=== PATIENT | female | born 1985 | race Caucasian/White ===

== ENCOUNTER → 2020-01-31 11:29 | Outpatient (BNVA) | payer OTHER, SELFPAY | PROVIDERS: PCP Internal Medicine; Referring Provider Internal Medicine; Visit Provider Advanced Practice Midwife | DX: B37.3 Candidiasis of vulva and vagina (principal); B37.2 Candidiasis of skin and nail; N76.2 Acute vulvitis; E66.01 Morbid (severe) obesity due to excess calories; Z68.42 Body mass index [BMI] 45.0-49.9, adult; Z79.899 Other long term (current) drug therapy | CPT/HCPCS: 99213 ==

== ENCOUNTER 2021-03-08 14:07 | Outpatient (REF) | payer OTHER, SELFPAY ==
[2021-03-08 14:33] LABS: COVID-19 Test Negative (Negative)
== END 2021-03-08 14:08 | disposition home or self-care (01) ==
LOC: HO.LAB 14:07
PROVIDERS: PCP Internal Medicine; Visit Provider Internal Medicine
DX: Z20.822 Contact with and (suspected) exposure to COVID-19 (principal)
CPT/HCPCS: 36415; 87635; C9803

== ENCOUNTER 2023-10-28 13:33 | Emergency (ER) | payer OTHER, SELFPAY ==
--- NOTE | 2023-10-28 | ECG_ITS ---
Test Reason : CHEST PAIN Blood Pressure : / mmHG Vent. Rate : 083 BPM Atrial Rate : 083 BPM P-R Int : 138 ms QRS Dur : 088 ms QT Int : 364 ms P-R-T Axes : 028 009 007 degrees QTc Int : 427 ms Normal sinus rhythm Normal ECG When compared with ECG of 24-OCT-2017 14:01, No significant change was found Referred By: Generic ED Physician Electronically Signed By:Shade Albright
--- NOTE | ~2023-10-28 | XR_ITS ---
EXAMINATION: XR CHEST CLINICAL INFORMATION: Chest pain COMPARISON: None available. TECHNIQUE: 2 views of the chest were obtained. FINDINGS: No significant abnormality is noted involving the heart, lungs, mediastinum, bony thorax or soft tissues. XR/XR chest 2V IMPRESSION: Unremarkable examination.
[2023-10-28 13:52] VITALS: BP 123/83; PULSE 82; RESP 18; TEMP 36.1; O2SAT 98; BMI 44.2
--- NOTE | 2023-10-28 13:53 | ED_ITS ---
HPI - Chest Pain General Chief Complaint: Chest Pain Stated Complaint: Chest pain Related Data Home Medications ?Medication ?Instructions ?Recorded ?Confirmed ibuprofen 800 mg tablet 800 mg PO Q8H 01/31/20 01/31/20 Previous Rx's ?Medication ?Instructions ?Recorded nystatin 100,000 unit/gram topical 1 applic topical BID #15 grams 01/31/20 ointment nystatin 100,000 unit/gram topical 1 applic topical BID 14 days #15 01/31/20 powder grams Allergies Allergy/AdvReac Type Severity Reaction Status Date / Time No Known Allergies Allergy Verified 10/28/23 13:55 [No Known Allergies*] [facility], [facility] Past Medical History Medical History Cellulitis of labia majora Morbid obesity with BMI of 45.0-49.9, adult Pre-diabetes Yeast infection involving the vagina and surrounding area Yeast infection of the skin Surgical History History of Family History Family History Maternal Aunt Breast cancer Social History Social History Alcohol intake: never Advance Directives: No Advance Directives Information Provided: No Do you have a plan to hurt others: No Plan Sexual orientation: Straight/Heterosexual Gender identity: Female Physical Exam 2 Vital Signs: Vital Signs: Last Vital Signs Temp 96.9 F 10/28/23 13:52 Pulse 82 10/28/23 13:52 Resp 18 10/28/23 13:52 BP 123/83 10/28/23 13:52 Pulse Ox 98 10/28/23 13:52 O2 Del Method Room Air 10/28/23 13:52 BMI result Body Mass Index 44.2 Course Course Course Narrative: This is an RME: Additional HPI, ROS, PE not included below will be deferred to primary provider. RME assessment and note performed by: Gely Flores PA-C This is a 38 y/o F, who presents to the ER with a complaints of left sided chest pain x 1 week. Pt states pain worsens with palpation. Thought it was breast pain. Endorsing SOB Plan: Labs, XR, EKG Reevaluation(s) Reevaluation #1: Patient left without completing treatment. Medical Decision Making Lab Data 10/28/23 16:02 10/28/23 16:02 Labs: Lab Results 10/28/23 Range/Units 16:02 WBC 9.3 (4.8-10.8) X10*3/uL RBC 4.71 (4.20-5.50) X10*6/uL Hgb 9.9 L (12.0-16.0) g/dl Hct 33.8 L (37.0-47.0) % MCV 71.8 L (80.0-98.0) fL MCH 21.0 L (27.0-33.0) pg MCHC 29.3 L (31.0-35.0) g/dl RDW 16.4 H (11.0-16.0) % Plt Count 257 (160-400) X10*3/uL MPV 10.1 (9.4-12.3) fL Immature Gran % (Auto) 0.3 (0.0-0.4) % Neut % (Auto) 55.3 (45-73) % Lymph % (Auto) 33.6 (20-40) % [place] % (Auto) 7.4 (2-11) % Eos % (Auto) 2.6 (0-4) % Baso % (Auto) 0.8 (0-2) % Lymph # (Auto) 3.1 (1.2-4.9) X10*3/uL [place] # (Auto) 0.7 (0.1-1.2) X10*3/uL Eos # (Auto) 0.2 (0.0-0.4) X10*3/uL Baso # (Auto) 0.1 (0.0-0.2) X10*3/uL Abs Immat Gran (auto) 0.03 (0.00-0.03) X10*3/uL Absolute Neuts (auto) 5.1 (2.0-8.3) x10*3/uL Absolute Nucleated RBC 0.000 (0.0-0.012) X10*3/uL Nucleated RBC % (auto) 0.0 (0.0-0.2) /100WBC Sodium 138 (135-145) mmol/L Potassium 4.0 (3.3-5.1) mmol/L Chloride 109 H (96-108) mmol/L Carbon Dioxide 23 (22-29) mmol/L Anion Gap 10 L (12-20) BUN 11 (9-16) mg/dL Creatinine 0.73 (0.5-1.4) mg/dL Estim Creat Clear Calc 126.5 Estimated GFR > 60 Random Glucose 106 (60-115) mg/dL Calcium 8.6 (8.4-10.2) mg/dL Magnesium 1.9 (1.6-2.6) mg/dL Total Bilirubin 0.5 (0.0-1.0) mg/dL Direct Bilirubin 0.1 (0.0-0.5) mg/dL AST 14 (5-31) U/L ALT 13 (0-31) U/L Alkaline Phosphatase 54 (39-117) U/L Troponin I High Sens < 2.7 (<3.5-17.0) ng/L Total Protein 7.0 (6.5-8.0) g/dL Albumin 3.8 (3.5-5.0) g/dL Lipase 38 (8-78) U/L Discharge Plan Discharge Clinical Impression: Chest pain Patient Disposition: Left W/O Completing Treatment Prescriptions: No Action ibuprofen 800 mg tablet 800 mg PO Q8H nystatin 100,000 unit/gram powder 1 applic topical BID 14 Days Qty: 15 1RF nystatin 100,000 unit/gram ointment 1 applic topical BID Qty: 15 1RF Interventions: USAMA Worksheet Last Done: 10/28/23 21:19 Discharge Date/Time: 10/28/23 21:19
--- OUTSIDE RECORDS SUMMARY | 2023-10-28 16:06 | XMS_ITS | Continuity of Care Document ---
Author Organization [facility] Address [address] [place] [address]- Care Team Providers Care Police Dispatcher Name Role Phone Carmela Lake MD Primary Care Physician Encounter [facility] Date(s): 06/05/20 - 07/14/[address] [address]- Attending Physician: Ernesto Webb MD Admitting Physician: Ernesto Webb MD Referring Physician: Carmela Lake MD Allergies, Adverse Reactions, Alerts Substance Reaction Severity Status NKA Active Immunizations Given and Recorded Vaccine Date Status Refusal Reason tetanus/diphtheria/pertussis, acel(Tdap) 06/15/13 Given influenza virus vaccine, inactivated 04/06/13 Give n influenza virus vaccine, inactivated 1 02/04/12 Gi jany Human Papillomavirus Vaccine 2 06/22/12 Given Human Papillomavirus Vaccine 11/04/10 Given Influenza Vaccine (oldterm) 3 05/30/09 Given influ virus vac, H1N1, inactive(oldterm) 4 05/30/09 Given Tet/Diphth/Acel, Pertussis (oldterm) 5 02/03/08 Gi jany 1Admin Note: vis given dated 10/20/11 2Admin Note: #2 in series. VIS given dated 06/11/2011 3Admin Note: vis given dated 11/26 4Admin Note: vis given dated 01/26 5Admin Note: VIS given Medications Alcohol Pads See Instructions, # 1 pack/packet, Refills 1, Tot. Refills 1, Maintenance, To use with once daily insulin administartion, 06/13/20 20:48:00 EST, Supply, 160.02, cm, 06/13/20 14:32:00 EST, Height Start Date: 06/13/20 Status: Ordered Freestyle Lite Test Strips See Instructions, # 1 pack/packet, Refills 5, Tot. Refills 5, Maintenance, To test BS 4 -6 x day Gestationa; diabetes 3DDC=494 test strips, 06/26/20 17:16:00 EST, Supply, 160.02, cm, 06/13/20 14:32:00 EST, Height Start Date: 06/26/20 Status: Ordered Humalog Kwik Pen 100 units/mL subcutaneous injection See Instructions, 22 ux with breakfast 20 ux with lunch 24 ux with dinner, # 15 mL, 5 Refills, Maintenance, 06/20/20 17:24:00 EST, [id number], Partial fill upon patient request if the prescription is for a schedule II opioid drug., 160.02,... Start Date: 06/20/20 Status: Ordered Lantus Solostar Pen 100 units/mL subcutaneous solution = 56 units, Subcutaneous Injection, Daily at bedtime, # 15 mL, 6 Refills, Maintenance, 06/13/20 20:45:00 EST, [id number], Partial fill upon patient request if the prescription is for a schedule II opioid drug., 160.02, cm, 06/13/20 14:32:00 ES... Start Date: 06/13/20 Status: Ordered Pen [place], 31 G x 5 mm BD Ultra Fine III See Instructions, # 120 each, Refills 4, Tot. Refills 4, Maintenance, To use with 4 times daily insulin injections, 06/20/20 17:27:00 EST, Supply, 160.02, cm, 06/13/20 14:32:00 EST, Height Start Date: 06/20/20 Status: Ordered Problem List Condition Effective Dates Status Health Status Inform ant Type 2 Diabetes(Confirmed) 1 Active Anxiety and depression(Confirmed) 2 Active Obesity, morbid, BMI 40.0-49.9(Confirmed) Active Advanced maternal age in multigravida(Confirmed) Active PCOS - Polycystic ovarian syndrome(Confirmed) Active (Confirmed) Active Uterine scar from previous c esarean delivery(Confirmed) Active 1Pt's diabetes managed by her PCP located at [address] [place] [address]/currently on Metformin 500mg BID. MFM consult for glucose control placed. 2BHN consult placed Social History Social History Type Response Smoking Status Former smoker, quit more than 30 days ago entered on: 05/23/20 Sex
--- OUTSIDE RECORDS SUMMARY | 2023-10-28 16:06 | XMS_ITS | Continuity of Care Document ---
Author Organization [facility] Address [address] [place] [address]- Care Team Providers Care Pusher Runner Name Role Phone Jaya JORDAN, Carmela Sanchez Primary Care Physician [phone] Encounter [facility] Date(s): 10/03/20 - 11/02/[facility] [address] [place] [id number] Attending Physician: AdmTiffanie varghese Admitting Physician: Admtr, [id number] Referring Physician: Admtr, [id number] Allergies, Adverse Reactions, Alerts Substance Reaction Severity Status NKA Active Immunizations Given and Recorded Vaccine Date Status Refusal Reason tetanus/diphtheria/pertussis, acel(Tdap) 10/04/20 Given tetanus/diphtheria/pertussis, acel(Tdap) 06/15/13 Given SARS-CoV-2 (COVID-19) mRNA BNT-162b2 vac 08/14/20 Recorded influenza virus vaccine, inactivated 04/06/13 Give n [...] EST, Height Start Date: 06/13/20 Status: Ordered aspirin 81 mg oral delayed release tablet 2 tablet = 162 mg, By Mouth, Daily, # 60 tablet, 5 Refills, Maintenance, 07/17/20 13:21:00 EDT, CR [facility]t, [id number], Partial fill upon patient request if the prescription is for a scheduleII opioid drug. ACOG preE prophylaxis, 160.02, cm,... Start Date: 07/17/20 Stop Date: 01/13/21 Status: Ordered Freestyle Lite Test Strips See Instructions, # 1 pack/packet, Refills 5, Tot. Refills 5, Maintenance, To test BS 4 -6 x day Gestationa; diabetes 0JKP=967 test strips, 06/26/20 17:16:00 EST, Supply, 160.02, cm, 06/13/20 14:32:00 EST, Height Start Date: 06/26/20 Status: Ordered Humalog Kwik Pen 100 units/mL subcutaneous injection See Instructions, 52 ux with breakfast 46 ux with lunch 68 ux with dinner, # 15 mL, 5 Refills, Maintenance, 10/22/20 9:50:00 EDT, [id number], Partial fill upon patient request if the prescription is for a schedule II opioid drug., 160.02, c... Start Date: 10/22/20 Status: Ordered Lantus Solostar Pen 100 units/mL subcutaneous solution 32 units in am and 90 units in pm, Subcutaneous Injection, Daily, # 12 mL, 6 Refills, Maintenance, 09/10/20 15:08:00 EDT, [id number], Partial fill upon patient request if the prescription isfor a schedule II opioid drug., 160.02, cm, ... Start Date: 09/10/20 Status: Ordered Pen [place], 31 G x 5 mm BD Ultra Fine III See Instructions, # 120 each, Refills 4, Tot. Refills 4, Maintenance, To use with 4 times daily insulin injections, 06/20/20 17:27:00 EST, Supply, 160.02, cm, 06/13/20 14:32:00 EST, Height Start Date: 06/20/20 Status: Ordered Ventolin HFA 108 mcg/inh inhalation aerosol with adapter 1 puffs, Inhalation, 4 times a day, PRN for wheezing, # 18 Gm, 0 Refills, Maintenance, 07/17/20 13:36:00 EDT, [facility]erosol, [id number], Partial fill upon patient request if the prescription is for a schedule II opioid drug., 160.02, cm, 07/17/20 1... Start Date: 07/17/20 Status: Ordered Problem List Condition Effective Dates Status Health Status Inform ant Type 2 Diabetes(Confirmed) 1 Active Exercise-induced asthma(Confirmed) Active Anxiety and depression(Confirmed) 2 Active Obesity, morbid, BMI 40.0-49.9(Confirmed) Active Advanced maternal age in multigravida(Confirmed) Active PCOS - Polycystic ovarian syndrome(Confirmed) Active (Confirmed) Active Uterine scar from previous c esarean delivery(Confirmed) Active 1Pt's diabetes managed by her PCP located at [address] [place] [address]/currently on Metformin 500mg BID. MFM consult for glucose control placed. 2BHN consult placed Social History Social History Type Response Smoking Status Former smoker, quit more than 30 days ago entered on: 05/23/20 Sex
--- OUTSIDE RECORDS SUMMARY | 2023-10-28 16:06 | XMS_ITS | Continuity of Care Document ---
Author Organization [facility] Address [address] [place] [address]- Care Team Providers Care Customer Engagement Specialist Name Role Phone Jaya JORDAN, Carmela Sanchez Primary Care Physician [phone] Encounter [facility] Date(s): 10/18/20 - 11/18/[address] [address]- Attending Physician: Not on Staff, Attending MD Allergies, Adverse Reactions, Alerts Substance Reaction [...] Maintenance, 07/17/20 13:21:00 EDT, [id number], Partial fill upon patient request if the prescription is for a scheduleII opioid drug. ACOG preE prophylaxis, 160.02, cm,... Start Date: 07/17/20 Stop Date: 01/13/21 Status: Ordered Freestyle Lite Lancets See Instructions, # 1 pack/packet, Refills 0, Tot. Refills 0, Maintenance, One pack = 100 test strips Blood sugar testing four times a day., 11/14/20 10:50:00 EDT, Supply, 160.02, cm, 11/01/20 13:24:00 EDT, Height, 140.3, kg, 11/05/20 14:27:00 EDT, D... Start Date: 11/14/20 Status: Ordered Freestyle Lite Test Strips See Instructions, # 1 pack/packet, Refills 5, Tot. Refills 5, Maintenance, To test BS 4 -6 x day Gestationa; diabetes 4EFF=565 test strips, 06/26/20 17:16:00 EST, Supply, 160.02, cm, 06/13/20 14:32:00 EST, Height Start Date: 06/26/20 Status: Ordered Humalog Kwik Pen 100 units/mL subcutaneous injection See Instructions, 56 ux with breakfast 50 ux with lunch 72 ux with dinner, # 15 mL, 5 Refills, Maintenance, 10/22/20 9:50:00 EDT, [id number], Partial fill upon patient request if the prescription is for a schedule II opioid drug., 160.02, c... Start Date: 10/22/20 Status: Ordered Lantus Solostar Pen 100 units/mL subcutaneous solution 38 units in am and 94 units in pm, Subcutaneous Injection, Daily, # 30 mL, 6 Refills, Maintenance, 09/10/20 15:08:00 EDT, [id number], Partial fill upon patient request if the prescription isfor a schedule II opioid drug., 160.02, cm, 2... Start Date: 09/10/20 Status: Ordered Pen [place], 31 G x 5 mm BD Ultra Fine III See Instructions, # 120 each, Refills 4, Tot. Refills 4, Maintenance, To use with 4 times daily insulin injections, 06/20/20 17:27:00 EST, Supply, 160.02, cm, 06/13/20 14:32:00 EST, Height Start Date: 06/20/20 Status: Ordered Multivitamins By Mouth, Daily, 0 Refills, Maintenance, 11/05/20 14:52:00 EDT, Partial fill upon patient request if the prescription is for a schedule II opioid drug. Start Date: 11/05/20 Status: Ordered Ventolin HFA 108 mcg/inh inhalation aerosol with adapter 1 puffs, Inhalation, 4 times a day, PRN for wheezing, # 18 Gm, 0 Refills, Maintenance, 07/17/20 13:36:00 EDT, [facility], [id number], Partial fill upon patient request [...] diabetes managed by her PCP located at [address] [place] [address]/currently on Metformin 500mg BID. MFM consult for glucose control placed. 2BHN consult placed Social History Social History Type Response Smoking Status Former smoker, quit more than 30 days ago entered on: 05/23/20 Sex
--- OUTSIDE RECORDS SUMMARY | 2023-10-28 16:06 | XMS_ITS | Continuity of Care Document ---
Author Organization [facility] Address [address] [place] [address]- Care Team Providers Care Brake Operator Sheet Metal Name Role Phone Jaya JORDAN, Carmela D Primary Care Physician [phone] Encounter [facility] Date(s): 06/10/20 - 07/20/[address] [id number] Attending Physician: Rayna Poole MD Admitting Physician: Rayna Poole MD Referring Physician: Esme Moreira MD Allergies, Adverse Reactions, Alerts Substance Reaction [...] Maintenance, 07/17/20 13:21:00 EDT, [id number], Partial fill upon patient request if the prescription is for a scheduleII opioid drug. ACOG preE prophylaxis, 160.02, cm,... Start Date: 07/17/20 Stop Date: 01/13/21 Status: Ordered Freestyle Lite Test Strips See Instructions, # 1 pack/packet, Refills 5, Tot. Refills 5, Maintenance, To test BS 4 -6 x day Gestationa; diabetes 3KWT=195 test strips, 06/26/20 17:16:00 EST, Supply, 160.02, cm, 06/13/20 14:32:00 EST, Height Start Date: 06/26/20 Status: Ordered Humalog Kwik Pen 100 units/mL subcutaneous injection See Instructions, 22 ux with breakfast 20 ux with lunch 24 ux with dinner, # 15 mL, 5 Refills, Maintenance, 07/16/20 16:27:00 EDT, [id number], Partial fill upon patient request if the prescription is for a schedule II opioid drug., 160.02,... Start Date: 07/16/20 Status: Ordered Lantus Solostar Pen 100 units/mL subcutaneous solution = 56 units, Subcutaneous Injection, Daily at bedtime, # 15 mL, 6 Refills, Maintenance, 07/16/20 16:27:00 EDT, [facility] [id number], Partial fill upon patient request if the prescription is for a schedule II opioid drug., 160.02, cm, 06/13/20 14:32:00 E... Start Date: 07/16/20 Status: Ordered Pen [place], 31 G x 5 mm BD Ultra [...] Refills, Maintenance, 07/17/20 13:36:00 EDT, [facility], [facility], Partial fill upon patient request [...] managed by her PCP located at [address] [place] [address]/currently on Metformin 500mg BID. MFM consult for glucose control placed. 2BHN consult placed Social History Social History Type Response Smoking Status Former smoker, quit more than 30 days ago entered on: 05/23/20 Sex
--- OUTSIDE RECORDS SUMMARY | 2023-10-28 16:06 | XMS_ITS | Continuity of Care Document ---
Author Organization [facility] Address [address] [place] [address]- Care Team Providers Care Mainspring Reverse Winder Name Role Phone Jaya JORDAN, Carmela D Primary Care Physician Encounter [facility] [place] Date(s): 12/02/20 - 12/06/[address] [address]- Discharge Disposition: A-D/C Home Attending Physician: Ernesto Webb MD Admitting Physician: Ernesto Webb MD Referring Physician: Ernesto Webb MD Allergies, Adverse Reactions, Alerts Substance Reaction [...] dated 01/26 5Admin Note: VIS given Medications Acetaminophen Tablet 650 mg, Tablet, By Mouth, (1-3), may give 325mg per patient preference and re- dose with 325mg within 4 hours if needed. Patient should only receive a total of 650mg of Acetaminophen every 4 hours., 12/06/20 10:15:00 EDT Start Date: 12/06/20 Stop Date: 12/06/20 Status: Completed Alcohol Pads See Instructions, # 1 pack/packet, Refills 1, Tot. Refills 1, Maintenance, To use with once daily insulin administartion, 06/13/20 20:48:00 EST, Supply, 160.02, cm, 06/13/20 14:32:00 EST, Height Start Date: 06/13/20 Status: Ordered aspirin 81 mg oral delayed release tablet 2 tablet = 162 mg, By Mouth, Daily, # 60 tablet, 5 Refills, Maintenance, 07/17/20 13:21:00 EDT, [facility], [id number], Partial fill upon patient request if the prescription is for a scheduleII opioid drug. ACOG preE prophylaxis, 160.02, cm,... Start Date: 07/17/20 Stop Date: 01/13/21 Status: Ordered famotidine 10 mg oral tablet 1 tablet = 10 mg, By Mouth, 2 times a day, # 28 tablet, 0 Refills, Maintenance, 12/06/20 7:57:00 EDT, Tablet, [id number], Partial fill upon patient request if the prescription is for a schedule II opioid drug., 160, cm, 12/06/20 1:25:00 EDT,... Start Date: 12/06/20 Status: Ordered Flovent HFA 44 mcg/inh inhalation aerosol 2 puffs, Inhalation, 2 times a day, # 11 Gm, 0 Refills, Maintenance, 11/30/20 12:50:00 EDT, [facility]erosol, [id number], Partial fill upon patient request if the prescription is for a schedule II opioid drug., 160.02, cm, 11/29/20 13:29:00 EDT, Heigh... Start Date: 11/30/20 Status: Ordered FREESTYLE 28G LANCETS FREESTYLE 28G LANCETS, See Instructions, # 200 Unknown, 2 Refills, USE TO TEST BLOOD SUGAR TWICE A DAY, 160, cm, 12/06/20 1:25:00 EDT, Height, 144, kg, 12/02/20 9:22:00 EDT, Dry Weight Start Date: 12/06/20 Status: Ordered Freestyle Lite Lancets See Instructions, [...] BS 4 -6 x day Gestationa; diabetes 5ZBC=852 test strips, 06/26/20 17:16:00 EST, Supply, 160.02, cm, 06/13/20 14:32:00 EST, Height Start Date: 06/26/20 Status: Ordered Humalog Kwik Pen 100 units/mL subcutaneous injection See Instructions, 60 ux with breakfast 54 ux with lunch 78 ux with dinner, # 15 mL, 5 Refills, Maintenance, 10/22/20 9:50:00 EDT, [id number], Partial fill upon patient request if the prescription is for a schedule II opioid drug., 160.02, c... Start Date: 10/22/20 Status: Ordered ibuprofen 600 mg oral tablet 600 mg, 1, tablet, By Mouth, 4 times a day, # 40 tablet, Refills 0, Tot. Refills 0, Maintenance, 12/06/20 7:58:00 EDT, Route to Pharmacy Electronically, [id number], Partial fill upon patientrequest if the prescription is for a schedule II op... Start Date: 12/06/20 Status: Ordered Ibuprofen Tablet 800 mg, Tablet, By Mouth, (4-6), may give 400mg per patient preference and re- dose with 400mg within 8 hours if needed. Patient should only receive a total of 800mg of Ibuprofen every 8 hours., 12/06/20 6:15:00 EDT Start Date: 12/06/20 Stop Date: 12/06/20 Status: Completed insulin lispro 100 u/ml subcutaneous injection = 8 units, Subcutaneous Infusion, 3 times a day before meals, Sliding scale 8 units for preprandial<150, 2 units additional for every 50 above 150., # 15 mL, 0 Refills, Maintenance, 12/06/20 8:13:00 EDT, [id number], Partial fill upon patien... Start Date: 12/06/20 Status: Ordered Lantus 100 u/ml subcutaneous solution = 30 units, Subcutaneous Injection, Daily, # 12 mL, 0 Refills, Maintenance, 12/06/20 8:11:00 EDT, Solution, [id number], Partial fill upon patient request if the prescription is for a schedule II opioid drug., 160, cm, 12/06/20 1:25:00 EDT, He... Start Date: 12/06/20 Status: Ordered Lantus Solostar Pen 100 units/mL subcutaneous solution 44 units in am and 100 units in pm, Subcutaneous Injection, Daily, # 12 mL, 6 Refills, Maintenance,09/10/20 15:08:00 EDT, [facility], Partial fill upon patient request if the prescription is for a schedule II opioid drug., 160.02, cm, 08/13/... Start Date: 09/10/20 Status: Ordered MiraLax oral powder for reconstitution = 17 Gm, By Mouth, Daily, dissolve in water before taking, # 255 Gm, 0 Refills, Maintenance, 12/06/20 7:57:00 EDT, REC Powder, [id number], Partial fill upon patient request if the prescription is for a schedule II opioid drug., 17 Gm By Mouth... Start Date: 12/06/20 Status: Ordered oxyCODONE 5 mg oral tablet 5 mg, 1, tablet, By Mouth, Every 6 hours, PRN, # 25 tablet, Refills 0, Tot. Refills 0, Acute 12/27/20 7:58:00 EDT, as needed for pain, 12/06/20 7:57:00 EDT, Route to Pharm[facility] Electronically, [id number], Partial fill upon patient request, 160,... Start Date: 12/06/20 Stop Date: 12/27/20 Status: Ordered OxyCODONE IR Tablet 5 mg, Tablet, By Mouth, Every 3 hours, PRN for Pain , Severe, (7-10), Routine, 12/04/20 19:08:00 EDT Start Date: 12/04/20 Stop Date: 12/07/20 Status: Discontinued Pen [place], 31 G x 5 mm BD Ultra [...] opioid drug. Start Date: 11/05/20 Status: Ordered simethicone 80 mg oral tablet 1 tablet = 80 mg, Chew, 3 times a day after meals and bedtime, PRN for gas, # 60 tablet, 0 Refills,Acute 12/22/20 7:57:00 EDT, 12/06/20 7:57:00 EDT, Tablet, [id number], Partial fill upon patient request if the prescription is for a schedule... Start Date: 12/06/20 Stop Date: 12/22/20 Status: Ordered Tylenol 325 mg oral tablet 650 mg, 2, tablet, By Mouth, Every 4 hours, PRN, # 40 tablet, Refills 0, Tot. Refills 0, Maintenance, for pain, 12/06/20 7:57:00 EDT, Route to Pharmacy Electronically, [facility], Partial fill upon patient request if the prescription is for a... Start Date: 12/06/20 Status: Ordered Ventolin HFA 108 mcg/inh inhalation aerosol with adapter 1 puffs, Inhalation, 4 times a day, PRN for wheezing, # 18 Gm, 0 Refills, Maintenance, 07/17/20 13:36:00 EDT, [facility]erosol, [facility], Partial fill upon patient request [...] diabetes managed by her PCP located at [address] [place] [address]/currently on Metformin 500mg BID. MFM consult for glucose control placed. 2BHN consult placed Procedures Procedure Date Related Diagnosis Body Site Status delivery only; 12/03/20 C ompleted Vital Signs Most recent to oldest [Reference Range]: 1 2 3 Height 160 cm (12/06/20 8:00 AM) 160 cm (12/05/20 11:35 PM) 160 cm (12/05/20 12:00 AM) Weight 144 kg (12/02/20 9:17 AM) Oxygen Saturation [94-100 %] 97 % (12/06/20 8:00 AM) 98 % (12/05/20 11:35 PM) 96 % (12/05/20 4:00 PM) Pulse Rate [55-90 bpm] 92 bpm *H* (12/06/20 8:00 AM) 90 bpm (12/05/20 11:35 PM) 90 bpm (12/05/20 4:00 PM) Body Mass Index [18.5-24.99] 56.25 *>HHI* (12/02/20 9:17 AM) Blood Pressure [90-138/55-84 mm Hg] 133/78mm Hg (12/06/20 8:00 AM) 107/59mm Hg (12/05/20 11:35 PM) 117/59mm Hg (12/05/20 4:00 PM) Respiratory Rate [16-30 br/min] 18 br/min (12/06/20 3:10 PM) 20 br/min (12/06/20 12:17 PM) 20 br/min (12/06/20 12:16 PM) Temperature [96.8-100.4 DegF] 98.6 DegF (12/06/20 8:00 AM) 98.2 DegF (12/05/20 11:35 PM) 98.3 DegF (12/05/20 4:00 PM) Mode of Delivery (Oxygen) Room air (12/06/20 8:00 AM) Room air (12/05/20 11:35 PM) Room air (12/05/20 4:00 PM) Blood pressure sites Arm, right (12/06/20 8:00 AM) Arm, left (12/05/20 11:35 PM) Arm, right (12/05/20 4:00 PM) Temperature Route Oral (12/06/20 8:00 AM) Oral (12/05/20 11:35 PM) Oral (12/05/20 4:00 PM) Dry Weight 144 kg (12/02/20 9:17 AM) Social History Social History Type Response Smoking Status Former smoker, quit more than 30 days ago entered on: 05/23/20 Sex
--- OUTSIDE RECORDS SUMMARY | 2023-10-28 16:06 | XMS_ITS | Continuity of Care Document ---
Author Organization [facility] Address [address] [place] [address]- Care Team Providers Care Community Service Coordinator Name Role Phone Jaya JORDAN, Carmela D Primary Care Physician [phone] Encounter [facility] [place] Date(s): 01/10/21 - 02/09/[address] [id number] Attending Physician: Admtr, [id number] Allergies, Adverse Reactions, Alerts Substance Reaction Severity [...] Maintenance, 07/17/20 13:21:00 EDT, CR [facility]t, [facility], Partial fill upon patient request if the prescription is for a scheduleII opioid drug. ACOG preE prophylaxis, 160.02, cm,... Start Date: 07/17/20 Stop Date: 01/13/21 Status: Ordered famotidine 10 mg oral tablet 1 tablet = 10 mg, By Mouth, 2 times a day, # 28 tablet, 0 Refills, Maintenance, 12/06/20 7:57:00 EDT, Tablet, [facility], Partial fill upon patient request if the prescription is for a schedule II opioid drug., 160, cm, 12/06/20 1:25:00 EDT,... Start Date: 12/06/20 Status: Ordered Flovent HFA 44 mcg/inh inhalation aerosol 2 puffs, Inhalation, 2 times a day, # 11 Gm, 0 Refills, Maintenance, 11/30/20 12:50:00 EDT, [facility]erosol, [facility], Partial fill upon patient request [...] Blood sugar testing four times a day., 01/24/21 15:17:00 EDT, Supply, 160, cm, 12/06/20 9:01:00 EDT, Height, 144, kg, 12/02/20 9:22:00 EDT, Dry Weight Start Date: 01/24/21 Status: Ordered Freestyle Lite Test Strips See Instructions, # 1 pack/packet, Refills 5, Tot. Refills 5, Maintenance, To test BS 4 -6 x day Gestationa; diabetes 1NRY=453 test strips, 06/26/20 17:16:00 EST, Supply, 160.02, cm, 06/13/20 14:32:00 EST, Height Start Date: 06/26/20 Status: Ordered Humalog Kwik Pen 100 units/mL subcutaneous injection See Instructions, 60 ux with breakfast 54 ux with lunch 78 ux with dinner, # 15 mL, 5 Refills, Maintenance, 10/22/20 9:50:00 EDT, [id number], Partial fill upon patient request if the prescription is for a schedule II opioid drug., 160.02, c... Start Date: 10/22/20 Status: Ordered ibuprofen 600 mg oral tablet 600 mg, 1, tablet, By Mouth, 4 times a day, # 40 tablet, Refills 0, Tot. Refills 0, Maintenance, 12/06/20 7:58:00 EDT, Route to Pharm[facility] Electronically, [id number], Partial fill upon patientrequest if the prescription is for a schedule II op... Start Date: 12/06/20 Status: Ordered insulin lispro 100 u/ml subcutaneous injection = 8 units, Subcutaneous Infusion, 3 times a day before meals, Sliding scale 8 units for preprandial<150, 2 units additional for every 50 above 150., # 15 mL, 0 Refills, Maintenance, 12/06/20 8:13:00 EDT, [id number], Partial fill upon patien... Start Date: 12/06/20 Status: Ordered Lantus 100 u/ml subcutaneous solution = 30 units, Subcutaneous Injection, Daily, # 12 mL, 0 Refills, Maintenance, 12/06/20 8:11:00 EDT, Solution, [facility], Partial fill upon patient request if the prescription is for a schedule II opioid drug., 160, cm, 12/06/20 1:25:00 EDT, He... Start Date: 12/06/20 Status: Ordered Lantus Solostar Pen 100 units/mL subcutaneous solution 44 units in am and 100 units in pm, Subcutaneous Injection, Daily, # 12 mL, 6 Refills, Maintenance,09/10/20 15:08:00 EDT, [facility], Partial fill upon patient request if the prescription is for a schedule II opioid drug., 160.02, cm, ... Start Date: 09/10/20 Status: Ordered MiraLax oral powder for reconstitution = 17 Gm, By Mouth, Daily, dissolve in water before taking, # 255 Gm, 0 Refills, Maintenance, 12/06/20 7:57:00 EDT, REC Powder, [facility], Partial fill upon patient request if the prescription is for a schedule II opioid drug., 17 Gm By Mouth... Start Date: 12/06/20 Status: Ordered Pen [place], 31 G x 5 mm BD Ultra Fine III See Instructions, # 120 each, Refills 0, Tot. Refills 0, Maintenance, To use with 4 times daily insulin injections, 01/24/21 15:15:00 EDT, Supply, 160, cm, 12/06/20 9:01:00 EDT, Height, 144, kg, 12/02/20 9:22:00 EDT, Dry Weight Start Date: 01/24/21 Status: Ordered Multivitamins By Mouth, Daily, 0 Refills, Maintenance, 11/05/20 14:52:00 EDT, Partial fill upon patient request if the prescription is for a schedule II opioid drug. Start Date: 11/05/20 Status: Ordered Tylenol 325 mg oral tablet 650 mg, 2, tablet, By Mouth, Every 4 hours, PRN, # 40 tablet, Refills 0, Tot. Refills 0, Maintenance, for pain, 12/06/20 7:57:00 EDT, Route to Pharm[facility] Electronically, [facility], Partial fill upon patient request if the prescription is for a... Start Date: 12/06/20 Status: Ordered Ventolin HFA 108 mcg/inh inhalation aerosol with adapter 1 puffs, Inhalation, 4 times a day, PRN for wheezing, # 18 Gm, 0 Refills, Maintenance, 07/17/20 13:36:00 EDT, [facility]erosol, [facility], Partial fill upon patient request [...] diabetes managed by her PCP located at [address] [place] [address]/currently on Metformin 500mg BID. MFM consult for glucose control placed. 2BHN consult placed Social History Social History Type Response Smoking Status Former smoker, quit more than 30 days ago entered on: 05/23/20 Sex
[2023-10-28 16:07] LABS: MANUAL DIFF FLAG NO
--- OUTSIDE RECORDS SUMMARY | 2023-10-28 16:07 | XMS_ITS | Continuity of Care Document ---
Author Organization [facility] Address [address] [place] [address]- Care Team Providers Care Kitchen Food Server Name Role Phone Jaya JORDAN, Carmela Sanchez Primary Care Physician [phone] Encounter [facility] Date(s): 06/27/20 - 07/27/[address] [address]- Allergies, Adverse Reactions, Alerts Substance Reaction Severity [...] Maintenance, 07/17/20 13:21:00 EDT, [place], Partial fill upon patient request if the prescription is for a scheduleII opioid drug. ACOG preE prophylaxis, 160.02, cm,... Start Date: 07/17/20 Stop Date: 01/13/21 Status: Ordered Freestyle Lite Test Strips See Instructions, # 1 pack/packet, Refills 5, Tot. Refills 5, Maintenance, To test BS 4 -6 x day Gestationa; diabetes 1CQL=355 test strips, 06/26/20 17:16:00 EST, Supply, 160.02, cm, 06/13/20 14:32:00 EST, Height Start Date: 06/26/20 Status: Ordered Humalog Kwik Pen 100 units/mL subcutaneous injection See Instructions, 22 ux with breakfast 20 ux with lunch 24 ux with dinner, # 15 mL, 5 Refills, Maintenance, 07/16/20 16:27:00 EDT, [facility], Partial fill upon patient request if the prescription is for a schedule II opioid drug., 160.02,... Start Date: 07/16/20 Status: Ordered Lantus Solostar Pen 100 units/mL subcutaneous solution = 56 units, Subcutaneous Injection, Daily at bedtime, # 15 mL, 6 Refills, Maintenance, 07/16/20 16:27:00 EDT, [facility], Partial fill upon patient request if the prescription is for a schedule II opioid drug., 160.02, cm, 06/13/20 14:32:00 E... Start Date: 07/16/20 Status: Ordered Pen [place], 31 G x 5 mm BD Ultra [...] Refills, Maintenance, 07/17/20 13:36:00 EDT, [facility], [facility], Partial fill upon patient request [...] diabetes managed by her PCP located at [address] [place] [address]/currently on Metformin 500mg BID. MFM consult for glucose control placed. 2BHN consult placed Social History Social History Type Response Smoking Status Former smoker, quit more than 30 days ago entered on: 05/23/20 Sex
--- OUTSIDE RECORDS SUMMARY | 2023-10-28 16:07 | XMS_ITS | Continuity of Care Document ---
Author Organization [facility] Address [address] [place] [address]- Care Team Providers Care Risk Management Manager Name Role Phone Jaya JORDAN, Carmela Sanchez Primary Care Physician En[place] [facility] [place] Date(s): 06/18/20 - 07/18/20 [facility] [address] [place] [id number] Allergies, Adverse Reactions, Alerts Substance Reaction Severity [...] Maintenance, 07/17/20 13:21:00 EDT, CR [facility], Partial fill upon patient request if the prescription is for a scheduleII opioid drug. ACOG preE prophylaxis, 160.02, cm,... Start Date: 07/17/20 Stop Date: 01/13/21 Status: Ordered Freestyle Lite Test Strips See Instructions, # 1 pack/packet, Refills 5, Tot. Refills 5, Maintenance, To test BS 4 -6 x day Gestationa; diabetes 9ZAX=553 test strips, 06/26/20 17:16:00 EST, Supply, 160.02, cm, 06/13/20 14:32:00 EST, Height Start Date: 06/26/20 Status: Ordered Humalog Kwik Pen 100 units/mL subcutaneous injection See Instructions, 22 ux with breakfast 20 ux with lunch 24 ux with dinner, # 15 mL, 5 Refills, Maintenance, 07/16/20 16:27:00 EDT, [facility], Partial fill upon patient request if the prescription is for a schedule II opioid drug., 160.02,... Start Date: 07/16/20 Status: Ordered Lantus Solostar Pen 100 units/mL subcutaneous solution = 56 units, Subcutaneous Injection, Daily at bedtime, # 15 mL, 6 Refills, Maintenance, 07/16/20 16:27:00 EDT, [facility], Partial fill upon patient request if the prescription is for a schedule II opioid drug., 160.02, cm, 06/13/20 14:32:00 E... Start Date: 07/16/20 Status: Ordered Pen [place], 31 G x 5 mm BD Ultra [...] Refills, Maintenance, 07/17/20 13:36:00 EDT, [facility], [facility], Partial fill upon patient request [...] managed by her PCP located at [address] [place] [address]/currently on Metformin 500mg BID. MFM consult for glucose control placed. 2BHN consult placed Social History Social History Type Response Smoking Status Former smoker, quit more than 30 days ago entered on: 05/23/20 Sex
--- OUTSIDE RECORDS SUMMARY | 2023-10-28 16:07 | XMS_ITS | Continuity of Care Document ---
Author Organization [facility] Address [address] [place] [address]- Care Team Providers Care Footwear Factory Worker Name Role Phone Jaya JORDAN, Carmela Sanchez Primary Care Physician [phone] Encounter [facility] [place] Date(s): 10/22/20 - 11/21/20 [facility] [address] [place] [email or web address] Allergies, Adverse Reactions, Alerts Substance Reaction Severity [...] Maintenance, 07/17/20 13:21:00 EDT, [place], [facility], Partial fill upon patient request [...] BS 4 -6 x day Gestationa; diabetes 8SCO=461 test strips, 06/26/20 17:16:00 EST, Supply, 160.02, cm, 06/13/20 14:32:00 EST, Height Start Date: 06/26/20 Status: Ordered Humalog Kwik Pen 100 units/mL subcutaneous injection See Instructions, 56 ux with breakfast 50 ux with lunch 72 ux with dinner, # 15 mL, 5 Refills, Maintenance, 10/22/20 9:50:00 EDT, [facility], Partial fill upon patient request if the prescription is for a schedule II opioid drug., 160.02, c... Start Date: 10/22/20 Status: Ordered Lantus Solostar Pen 100 units/mL subcutaneous solution 38 units in am and 94 units in pm, Subcutaneous Injection, Daily, # 30 mL, 6 Refills, Maintenance, 09/10/20 15:08:00 EDT, [facility], Partial fill upon patient request if the prescription isfor a schedule II opioid drug., 160.02, cm, 04/26/2... Start Date: 09/10/20 Status: Ordered Pen [place], 31 G x 5 mm BD Ultra [...] Refills, Maintenance, 07/17/20 13:36:00 EDT, [facility], [facility], Partial fill upon patient request [...] diabetes managed by her PCP located at [address] [place] [address]/currently on Metformin 500mg BID. MFM consult for glucose control placed. 2BHN consult placed Social History Social History Type Response Smoking Status Former smoker, quit more than 30 days ago entered on: 05/23/20 Sex
--- OUTSIDE RECORDS SUMMARY | 2023-10-28 16:07 | XMS_ITS | Continuity of Care Document ---
Author Organization [facility] Address [address] [place] [address]- Care Team Providers Care Cutter Banana Room Name Role Phone Jaya JORDAN, Carmela Sanchez Primary Care Physician [phone] Encounter [facility] [place] Date(s): 07/12/20 - 08/11/20 Maternal Medicine [address] [place] [id number] Allergies, Adverse Reactions, Alerts Substance Reaction Severity [...] Maintenance, 07/17/20 13:21:00 EDT, [place] [facility], [facility], Partial fill upon patient request if the prescription is for a scheduleII opioid drug. ACOG preE prophylaxis, 160.02, cm,... Start Date: 07/17/20 Stop Date: 01/13/21 Status: Ordered Freestyle Lite Test Strips See Instructions, # 1 pack/packet, Refills 5, Tot. Refills 5, Maintenance, To test BS 4 -6 x day Gestationa; diabetes 5PHT=359 test strips, 06/26/20 17:16:00 EST, Supply, 160.02, cm, 06/13/20 14:32:00 EST, Height Start Date: 06/26/20 Status: Ordered Humalog Kwik Pen 100 units/mL subcutaneous injection See Instructions, 26 ux with breakfast 28 ux with lunch 38 ux with dinner, # 15 mL, 5 Refills, Maintenance, 07/16/20 16:27:00 EDT, [facility], Partial fill upon patient request if the prescription is for a schedule II opioid drug., 160.02,... Start Date: 07/16/20 Status: Ordered Lantus Solostar Pen 100 units/mL subcutaneous solution = 70 units, Subcutaneous Injection, Daily at bedtime, # 15 mL, 6 Refills, Maintenance, 07/16/20 16:27:00 EDT, [facility], Partial fill upon patient request if the prescription is for a schedule II opioid drug., 160.02, cm, 06/13/20 14:32:00 E... Start Date: 07/16/20 Status: Ordered Pen [place], 31 G x 5 mm BD Ultra [...] Refills, Maintenance, 07/17/20 13:36:00 EDT, [facility]erosol, [facility], Partial fill upon patient request [...] diabetes managed by her PCP located at [address] [place] [address]/currently on Metformin 500mg BID. MFM consult for glucose control placed. 2BHN consult placed Social History Social History Type Response Smoking Status Former smoker, quit more than 30 days ago entered on: 05/23/20 Sex
--- OUTSIDE RECORDS SUMMARY | 2023-10-28 16:07 | XMS_ITS | Continuity of Care Document ---
Author Organization [facility] ter Address [address] [place] [id number]- Care Team Providers Care Bottoming Machine Operator Name Role Phone Jaya JORDAN, Carmela D Primary Care Physician Encounter [facility] [place] Date(s): 11/05/20 - 11/05/[address] [id number] Discharge Disposition: A-D/C Home Attending Physician: Ernesto [...] Maintenance, 07/17/20 13:21:00 EDT, CR [facility]t, [id number], Partial fill upon patient request if the prescription is for a scheduleII opioid drug. ACOG preE prophylaxis, 160.02, cm,... Start Date: 07/17/20 Stop Date: 01/13/21 Status: Ordered Freestyle Lite Test Strips See Instructions, # 1 pack/packet, Refills 5, Tot. Refills 5, Maintenance, To test BS 4 -6 x day Gestationa; diabetes 8EEO=638 test strips, 06/26/20 17:16:00 EST, Supply, 160.02, cm, 06/13/20 14:32:00 EST, Height Start Date: 06/26/20 Status: Ordered Humalog Kwik Pen 100 units/mL subcutaneous injection See Instructions, 52 ux with breakfast 46 ux with lunch 68 ux with dinner, # 15 mL, 5 Refills, Maintenance, 10/22/20 9:50:00 EDT, [facility], Partial fill upon patient request if the prescription is for a schedule II opioid drug., 160.02, c... Start Date: 10/22/20 Status: Ordered Lantus Solostar Pen 100 units/mL subcutaneous solution 32 units in am and 90 units in pm, Subcutaneous Injection, Daily, # 12 mL, 6 Refills, Maintenance, 09/10/20 15:08:00 EDT, [facility], Partial fill upon patient request if the prescription isfor a schedule II opioid drug., 160.02, cm, ... Start Date: 09/10/20 Status: Ordered Pen [place], 31 G x 5 mm BD Ultra [...] Refills, Maintenance, 07/17/20 13:36:00 EDT, Aerosol, [facility], Partial fill upon patient request [...] diabetes managed by her PCP located at [address] [place] [address]/currently on Metformin 500mg BID. MFM consult for glucose control placed. 2BHN consult placed Vital Signs Most recent to oldest [Reference Range]: 1 Weight 140.3 kg (11/05/20 2:27 PM) Pulse Rate [55-90 bpm] 107 bpm *H* (11/05/20 2:49 PM) Blood Pressure [90-138/55-84 mm Hg] 124/ 71mm Hg (11/05/20 2:49 PM) Respiratory Rate [16-30 br/min] 22 br/mi n (11/05/20 2:49 PM) Temperature [96.8-100.4 DegF] 98.2 DegF (11/05/20 2:27 PM) Blood pressure sites Arm, right (11/05/20 2:49 PM) Temperature Route Oral (11/05/20 2:27 PM) Dry Weight 140.3 kg (11/05/20 2:27 PM) Weight Obtained Via Standing scale (11/05/20 2:27 PM) Dry Weight Obtained Via Standing scale (11/05/20 2:27 PM) Social History Social History Type Response Smoking Status Former smoker, quit more than 30 days ago entered on: 05/23/20 Sex
--- OUTSIDE RECORDS SUMMARY | 2023-10-28 16:07 | XMS_ITS | Continuity of Care Document ---
Author Organization [facility] Address [address] [place] [id number]- Care Team Providers Care Management Information Systems Director Name Role Phone Jaya JORDAN, Carmela D Primary Care Physician En[place] [facility] [place] Date(s): 11/14/20 - 12/15/20 [facility] [address] [place] [id number] Attending Physician: Not on Staff, Attending MD [...] Maintenance, 07/17/20 13:21:00 EDT, CR Tablet, [facility], Partial fill upon patient request if the prescription is for a scheduleII opioid drug. ACOG preE prophylaxis, 160.02, cm,... Start Date: 07/17/20 Stop Date: 01/13/21 Status: Ordered famotidine 10 mg oral tablet 1 tablet = 10 mg, By Mouth, 2 times a day, # 28 tablet, 0 Refills, Maintenance, 12/06/20 7:57:00 EDT, Tablet, [facility], Partial fill upon patient request if the prescription is for a schedule II opioid drug., 160, cm, 12/06/20 1:25:00 EDT,... Start Date: 12/06/20 Status: Ordered Flovent HFA 44 mcg/inh inhalation aerosol 2 puffs, Inhalation, 2 times a day, # 11 Gm, 0 Refills, Maintenance, 11/30/20 12:50:00 EDT, [facility]erosol, [facility], Partial fill upon patient request [...] BS 4 -6 x day Gestationa; diabetes 4YPE=672 test strips, 06/26/20 17:16:00 EST, Supply, 160.02, cm, 06/13/20 14:32:00 EST, Height Start Date: 06/26/20 Status: Ordered Humalog Kwik Pen 100 units/mL subcutaneous injection See Instructions, 60 ux with breakfast 54 ux with lunch 78 ux with dinner, # 15 mL, 5 Refills, Maintenance, 10/22/20 9:50:00 EDT, [id number], Partial fill upon patient request if the prescription is for a schedule II opioid drug., 160.02, c... Start Date: 10/22/20 Status: Ordered ibuprofen 600 mg oral tablet 600 mg, 1, tablet, By Mouth, 4 times a day, # 40 tablet, Refills 0, Tot. Refills 0, Maintenance, 12/06/20 7:58:00 EDT, Route to Pharmacy Electronically, [facility], Partial fill upon patientrequest if the prescription is for a schedule II op... Start Date: 12/06/20 Status: Ordered insulin lispro 100 u/ml subcutaneous injection = 8 units, Subcutaneous Infusion, 3 times a day before meals, Sliding scale 8 units for preprandial<150, 2 units additional for every 50 above 150., # 15 mL, 0 Refills, Maintenance, 12/06/20 8:13:00 EDT, [facility], Partial fill upon patien... Start Date: 12/06/20 Status: Ordered Lantus 100 u/ml subcutaneous solution = 30 units, Subcutaneous Injection, Daily, # 12 mL, 0 Refills, Maintenance, 12/06/20 8:11:00 EDT, Solution, [facility], Partial fill upon patient request if the prescription is for a schedule II opioid drug., 160, cm, 12/06/20 1:25:00 EDT, He... Start Date: 12/06/20 Status: Ordered Lantus Solostar Pen 100 units/mL subcutaneous solution 44 units in am and 100 units in pm, Subcutaneous Injection, Daily, # 12 mL, 6 Refills, Maintenance,09/10/20 15:08:00 EDT, [facility], Partial fill upon patient request if the prescription is for a schedule II opioid drug., 160.02, cm, 08/13/... Start Date: 09/10/20 Status: Ordered MiraLax oral powder for reconstitution = 17 Gm, By Mouth, Daily, dissolve in water before taking, # 255 Gm, 0 Refills, Maintenance, 12/06/20 7:57:00 EDT, REC Powder, [facility], Partial fill upon patient request [...] 7:57:00 EDT, Route to Pharmacy Electronically, [facility], Partial fill upon patient request, 160,... Start Date: 12/06/20 Stop Date: 12/27/20 Status: Ordered Pen [place], 31 G x 5 mm BD Ultra [...] 7:57:00 EDT, 12/06/20 7:57:00 EDT, Tablet, [facility], Partial fill upon patient request if the prescription is for a schedule... Start Date: 12/06/20 Stop Date: 12/22/20 Status: Ordered Tylenol 325 mg oral tablet 650 mg, 2, tablet, By Mouth, Every 4 hours, PRN, # 40 tablet, Refills 0, Tot. Refills 0, Maintenance, for pain, 12/06/20 7:57:00 EDT, Route to Pharmacy Electronically, [facility], Partial fill upon patient request if the prescription is for a... Start Date: 12/06/20 Status: Ordered Ventolin HFA 108 mcg/inh inhalation aerosol with adapter 1 puffs, Inhalation, 4 times a day, PRN for wheezing, # 18 Gm, 0 Refills, Maintenance, 07/17/20 13:36:00 EDT, Aerosol, [facility], Partial fill upon patient request [...] diabetes managed by her PCP located at [address] [place] [address]/currently on Metformin 500mg BID. MFM consult for glucose control placed. 2BHN consult placed Social History Social History Type Response Smoking Status Former smoker, quit more than 30 days ago entered on: 05/23/20 Sex
--- OUTSIDE RECORDS SUMMARY | 2023-10-28 16:07 | XMS_ITS | Continuity of Care Document ---
Author Organization [facility] Address [address] [place] [id number]- Care Team Providers Care Legal Internship Name Role Phone Jaya JORDAN, Carmela D Primary Care Physician Encounter [facility] Date(s): 11/14/20 - 12/14/20 [facility] [address] [place] [id number] Allergies, Adverse Reactions, Alerts Substance Reaction [...] Maintenance, 07/17/20 13:21:00 EDT, CR Tablet, [facility], Partial fill upon patient request if the prescription is for a scheduleII opioid drug. ACOG preE prophylaxis, 160.02, cm,... Start Date: 07/17/20 Stop Date: 01/13/21 Status: Ordered famotidine 10 mg oral tablet 1 tablet = 10 mg, By Mouth, 2 times a day, # 28 tablet, 0 Refills, Maintenance, 12/06/20 7:57:00 EDT, Tablet, [facility], Partial fill upon patient request if the prescription is for a schedule II opioid drug., 160, cm, 12/06/20 1:25:00 EDT,... Start Date: 12/06/20 Status: Ordered Flovent HFA 44 mcg/inh inhalation aerosol 2 puffs, Inhalation, 2 times a day, # 11 Gm, 0 Refills, Maintenance, 11/30/20 12:50:00 EDT, [facility]erosol, [facility], Partial fill upon patient request [...] BS 4 -6 x day Gestationa; diabetes 1OUN=089 test strips, 06/26/20 17:16:00 EST, Supply, 160.02, cm, 06/13/20 14:32:00 EST, Height Start Date: 06/26/20 Status: Ordered Humalog Kwik Pen 100 units/mL subcutaneous injection See Instructions, 60 ux with breakfast 54 ux with lunch 78 ux with dinner, # 15 mL, 5 Refills, Maintenance, 10/22/20 9:50:00 EDT, [facility], Partial fill upon patient request if the prescription is for a schedule II opioid drug., 160.02, c... Start Date: 10/22/20 Status: Ordered ibuprofen 600 mg oral tablet 600 mg, 1, tablet, By Mouth, 4 times a day, # 40 tablet, Refills 0, Tot. Refills 0, Maintenance, 12/06/20 7:58:00 EDT, Route to Pharm[facility] Electronically, [facility], Partial fill upon patientrequest if the prescription is for a schedule II op... Start Date: 12/06/20 Status: Ordered insulin lispro 100 u/ml subcutaneous injection = 8 units, Subcutaneous Infusion, 3 times a day before meals, Sliding scale 8 units for preprandial<150, 2 units additional for every 50 above 150., # 15 mL, 0 Refills, Maintenance, 12/06/20 8:13:00 EDT, [facility], Partial fill upon patien... Start Date: 12/06/20 Status: Ordered Lantus 100 u/ml subcutaneous solution = 30 units, Subcutaneous Injection, Daily, # 12 mL, 0 Refills, Maintenance, 12/06/20 8:11:00 EDT, Solution, [facility], Partial fill upon patient request if the prescription is for a schedule II opioid drug., 160, cm, 12/06/20 1:25:00 EDT, He... Start Date: 12/06/20 Status: Ordered Lantus Solostar Pen 100 units/mL subcutaneous solution 44 units in am and 100 units in pm, Subcutaneous Injection, Daily, # 12 mL, 6 Refills, Maintenance,09/10/20 15:08:00 EDT, [facility], Partial fill upon patient request if the prescription is for a schedule II opioid drug., 160.02, cm, 08/13/... Start Date: 09/10/20 Status: Ordered MiraLax oral powder for reconstitution = 17 Gm, By Mouth, Daily, dissolve in water before taking, # 255 Gm, 0 Refills, Maintenance, 12/06/20 7:57:00 EDT, REC Powder, [facility], Partial fill upon patient request [...] 7:57:00 EDT, Route to Pharmacy Electronically, [facility], Partial fill upon patient request, 160,... Start Date: 12/06/20 Stop Date: 12/27/20 Status: Ordered Pen [place], 31 G x 5 mm BD Ultra [...] 7:57:00 EDT, 12/06/20 7:57:00 EDT, Tablet, [facility], Partial fill upon patient request if the prescription is for a schedule... Start Date: 12/06/20 Stop Date: 12/22/20 Status: Ordered Tylenol 325 mg oral tablet 650 mg, 2, tablet, By Mouth, Every 4 hours, PRN, # 40 tablet, Refills 0, Tot. Refills 0, Maintenance, for pain, 12/06/20 7:57:00 EDT, Route to Pharmacy Electronically, [facility], Partial fill upon patient request if the prescription is for a... Start Date: 12/06/20 Status: Ordered Ventolin HFA 108 mcg/inh inhalation aerosol with adapter 1 puffs, Inhalation, 4 times a day, PRN for wheezing, # 18 Gm, 0 Refills, Maintenance, 07/17/20 13:36:00 EDT, Aerosol, [facility], Partial fill upon patient request [...] managed by her PCP located at [address] [place] [address]/currently on Metformin 500mg BID. MFM consult for glucose control placed. 2BHN consult placed Social History Social History Type Response Smoking Status Former smoker, quit more than 30 days ago entered on: 05/23/20 Sex
--- OUTSIDE RECORDS SUMMARY | 2023-10-28 16:07 | XMS_ITS | Continuity of Care Document ---
Author Organization [facility] ter Address [address] [place] [id number]- Care Team Providers Care Alteration Hand Name Role Phone Jaya JORDAN, Carmela Sanchez Primary Care Physician [phone] Encounter [facility] [place] Date(s): 11/06/20 - 12/12/[address] [id number] Attending Physician: Arabella Duffy DO Admitting Physician: Arabella Duffy DO Referring Physician: Kelsey Eddy DO Allergies, Adverse Reactions, Alerts Substance Reaction Severity [...] Maintenance, 07/17/20 13:21:00 EDT, CR [facility]t, [facility], Partial fill upon patient request if the prescription is for a scheduleII opioid drug. ACOG preE prophylaxis, 160.02, cm,... Start Date: 07/17/20 Stop Date: 01/13/21 Status: Ordered famotidine 10 mg oral tablet 1 tablet = 10 mg, By Mouth, 2 times a day, # 28 tablet, 0 Refills, Maintenance, 12/06/20 7:57:00 EDT, Tablet, [facility], Partial fill upon patient request if the prescription is for a schedule II opioid drug., 160, cm, 12/06/20 1:25:00 EDT,... Start Date: 12/06/20 Status: Ordered Flovent HFA 44 mcg/inh inhalation aerosol 2 puffs, Inhalation, 2 times a day, # 11 Gm, 0 Refills, Maintenance, 11/30/20 12:50:00 EDT, Aerosol, [facility], Partial fill upon patient request [...] BS 4 -6 x day Gestationa; diabetes 4RKB=508 test strips, 06/26/20 17:16:00 EST, Supply, 160.02, cm, 06/13/20 14:32:00 EST, Height Start Date: 06/26/20 Status: Ordered Humalog Kwik Pen 100 units/mL subcutaneous injection See Instructions, 60 ux with breakfast 54 ux with lunch 78 ux with dinner, # 15 mL, 5 Refills, Maintenance, 10/22/20 9:50:00 EDT, [facility], Partial fill upon patient request if the prescription is for a schedule II opioid drug., 160.02, c... Start Date: 10/22/20 Status: Ordered ibuprofen 600 mg oral tablet 600 mg, 1, tablet, By Mouth, 4 times a day, # 40 tablet, Refills 0, Tot. Refills 0, Maintenance, 12/06/20 7:58:00 EDT, Route to Pharm[facility] Electronically, [facility], Partial fill upon patientrequest if the prescription is for a schedule II op... Start Date: 12/06/20 Status: Ordered insulin lispro 100 u/ml subcutaneous injection = 8 units, Subcutaneous Infusion, 3 times a day before meals, Sliding scale 8 units for preprandial<150, 2 units additional for every 50 above 150., # 15 mL, 0 Refills, Maintenance, 12/06/20 8:13:00 EDT, [facility], Partial fill upon patien... Start Date: 12/06/20 Status: Ordered Lantus 100 u/ml subcutaneous solution = 30 units, Subcutaneous Injection, Daily, # 12 mL, 0 Refills, Maintenance, 12/06/20 8:11:00 EDT, Solution, [facility], Partial fill upon patient request if the prescription is for a schedule II opioid drug., 160, cm, 12/06/20 1:25:00 EDT, He... Start Date: 12/06/20 Status: Ordered Lantus Solostar Pen 100 units/mL subcutaneous solution 44 units in am and 100 units in pm, Subcutaneous Injection, Daily, # 12 mL, 6 Refills, Maintenance,09/10/20 15:08:00 EDT, [facility], Partial fill upon patient request if the prescription is for a schedule II opioid drug., 160.02, cm, 08/13/... Start Date: 09/10/20 Status: Ordered MiraLax oral powder for reconstitution = 17 Gm, By Mouth, Daily, dissolve in water before taking, # 255 Gm, 0 Refills, Maintenance, 12/06/20 7:57:00 EDT, REC Powder, [facility], Partial fill upon patient request [...] 7:57:00 EDT, Route [place] Pharmacy Electronically, [facility], Partial fill upon patient request, 160,... Start Date: 12/06/20 Stop Date: 12/27/20 Status: Ordered Pen [place], 31 G x 5 mm BD Ultra [...] 7:57:00 EDT, 12/06/20 7:57:00 EDT, Tablet, [facility], Partial fill upon patient request if the prescription is for a schedule... Start Date: 12/06/20 Stop Date: 12/22/20 Status: Ordered Tylenol 325 mg oral tablet 650 mg, 2, tablet, By Mouth, Every 4 hours, PRN, # 40 tablet, Refills 0, Tot. Refills 0, Maintenance, for pain, 12/06/20 7:57:00 EDT, Route to Pharmacy Electronically, [facility], Partial fill upon patient request if the prescription is for a... Start Date: 12/06/20 Status: Ordered Ventolin HFA 108 mcg/inh inhalation aerosol with adapter 1 puffs, Inhalation, 4 times a day, PRN for wheezing, # 18 Gm, 0 Refills, Maintenance, 07/17/20 13:36:00 EDT, Aerosol, [facility], Partial fill upon patient request [...] diabetes managed by her PCP located at [address] [place] [address]/currently on Metformin 500mg BID. MFM consult for glucose control placed. 2BHN consult placed Social History Social History Type Response Smoking Status Former smoker, quit more than 30 days ago entered on: 05/23/20 Sex
--- OUTSIDE RECORDS SUMMARY | 2023-10-28 16:07 | XMS_ITS | Continuity of Care Document ---
Author Organization [facility] Address [address] [place] [id number]- Care Team Providers Care Primary Clinician Name Role Phone Jaya JORDAN, Carmela D Primary Care Physician Encounter [facility] [place](s): 01/24/21 - 02/23/21 M[facility] [address] [place] [id number] Allergies, Adverse Reactions, Alerts [...] Maintenance, 07/17/20 13:21:00 EDT, [place], Partial fill upon patient request if the prescription is for a scheduleII opioid drug. ACOG preE prophylaxis, 160.02, cm,... Start Date: 07/17/20 Stop Date: 01/13/21 Status: Ordered famotidine 10 mg oral tablet 1 tablet = 10 mg, By Mouth, 2 times a day, # 28 tablet, 0 Refills, Maintenance, 12/06/20 7:57:00 EDT, Tablet, [facility], Partial fill upon patient request if the prescription is for a schedule II opioid drug., 160, cm, 12/06/20 1:25:00 EDT,... Start Date: 12/06/20 Status: Ordered Flovent HFA 44 mcg/inh inhalation aerosol 2 puffs, Inhalation, 2 times a day, # 11 Gm, 0 Refills, Maintenance, 11/30/20 12:50:00 EDT, [facility]erosol, [facility], Partial fill upon patient request [...] BS 4 -6 x day Gestationa; diabetes 9JVZ=242 test strips, 06/26/20 17:16:00 EST, Supply, 160.02, cm, 06/13/20 14:32:00 EST, Height Start Date: 06/26/20 Status: Ordered Humalog Kwik Pen 100 units/mL subcutaneous injection See Instructions, 60 ux with breakfast 54 ux with lunch 78 ux with dinner, # 15 mL, 5 Refills, Maintenance, 10/22/20 9:50:00 EDT, [facility], Partial fill upon patient request if the prescription is for a schedule II opioid drug., 160.02, c... Start Date: 10/22/20 Status: Ordered ibuprofen 600 mg oral tablet 600 mg, 1, tablet, By Mouth, 4 times a day, # 40 tablet, Refills 0, Tot. Refills 0, Maintenance, 12/06/20 7:58:00 EDT, Route [place] Pharm[facility] Electronically, [facility], Partial fill upon patientrequest if the prescription is for a schedule II op... Start Date: 12/06/20 Status: Ordered insulin lispro 100 u/ml subcutaneous injection = 8 units, Subcutaneous Infusion, 3 times a day before meals, Sliding scale 8 units for preprandial<150, 2 units additional for every 50 above 150., # 15 mL, 0 Refills, Maintenance, 12/06/20 8:13:00 EDT, [facility], Partial fill upon patien... Start Date: 12/06/20 Status: Ordered Lantus 100 u/ml subcutaneous solution = 30 units, Subcutaneous Injection, Daily, # 12 mL, 0 Refills, Maintenance, 12/06/20 8:11:00 EDT, Solution, [facility], Partial fill upon patient request if the prescription is for a schedule II opioid drug., 160, cm, 12/06/20 1:25:00 EDT, He... Start Date: 12/06/20 Status: Ordered Lantus Solostar Pen 100 units/mL subcutaneous solution 44 units in am and 100 units in pm, Subcutaneous Injection, Daily, # 12 mL, 6 Refills, Maintenance,09/10/20 15:08:00 EDT, [facility], Partial fill upon patient request if the prescription is for a schedule II opioid drug., 160.02, cm, ... Start Date: 09/10/20 Status: Ordered MiraLax oral powder for reconstitution = 17 Gm, By Mouth, Daily, dissolve in water before taking, # 255 Gm, 0 Refills, Maintenance, 12/06/20 7:57:00 EDT, REC Powder, [facility], Partial fill upon patient request if the prescription is for a schedule II opioid drug., 17 Gm By Mouth... Start Date: 12/06/20 Status: Ordered Pen [place], 31 G x 5 mm BD Ultra [...] 7:57:00 EDT, Route [place] Pharmacy Electronically, [facility], Partial fill upon patient request if the prescription is for a... Start Date: 12/06/20 Status: Ordered Ventolin HFA 108 mcg/inh inhalation aerosol with adapter 1 puffs, Inhalation, 4 times a day, PRN for wheezing, # 18 Gm, 0 Refills, Maintenance, 07/17/20 13:36:00 EDT, Aerosol, [facility], Partial fill upon patient request [...] diabetes managed by her PCP located at [address] [place] [address]/currently on Metformin 500mg BID. MFM consult for glucose control placed. 2BHN consult placed Social History Social History Type Response Smoking Status Former smoker, quit more than 30 days ago entered on: 05/23/20 Sex
--- OUTSIDE RECORDS SUMMARY | 2023-10-28 16:07 | XMS_ITS | Continuity of Care Document ---
Author Organization [facility] Address [address] [place] [address]- Care Team Providers Care Dye Winch Operator Name Role Phone Jaya JORDAN, Carmela Sanchez Primary Care Physician [phone] Encounter [facility] [place] Date(s): 11/23/20 - 12/29/[address] [address]- Attending Physician: Arabella Duffy DO Admitting Physician: [...] Maintenance, 07/17/20 13:21:00 EDT, CR Tablet, [id number], Partial fill upon patient request if the prescription is for a scheduleII opioid drug. ACOG preE prophylaxis, 160.02, cm,... Start Date: 07/17/20 Stop Date: 01/13/21 Status: Ordered famotidine 10 mg oral tablet 1 tablet = 10 mg, By Mouth, 2 times a day, # 28 tablet, 0 Refills, Maintenance, 12/06/20 7:57:00 EDT, Tablet, [facility], Partial fill upon patient request if the prescription is for a schedule II opioid drug., 160, cm, 12/06/20 1:25:00 EDT,... Start Date: 12/06/20 Status: Ordered Flovent HFA 44 mcg/inh inhalation aerosol 2 puffs, Inhalation, 2 times a day, # 11 Gm, 0 Refills, Maintenance, 11/30/20 12:50:00 EDT, [facility]erosol, [id number], Partial fill upon patient request [...] BS 4 -6 x day Gestationa; diabetes 6GPX=456 test strips, 06/26/20 17:16:00 EST, Supply, 160.02, cm, 06/13/20 14:32:00 EST, Height Start Date: 06/26/20 Status: Ordered Humalog Kwik Pen 100 units/mL subcutaneous injection See Instructions, 60 ux with breakfast 54 ux with lunch 78 ux with dinner, # 15 mL, 5 Refills, Maintenance, 10/22/20 9:50:00 EDT, [facility], Partial fill upon patient request if the prescription is for a schedule II opioid drug., 160.02, c... Start Date: 10/22/20 Status: Ordered ibuprofen 600 mg oral tablet 600 mg, 1, tablet, By Mouth, 4 times a day, # 40 tablet, Refills 0, Tot. Refills 0, Maintenance, 12/06/20 7:58:00 EDT, Route to Pharmacy Electronically, [id number], Partial fill upon patientrequest if the prescription is for a schedule II op... Start Date: 12/06/20 Status: Ordered insulin lispro 100 u/ml subcutaneous injection = 8 units, Subcutaneous Infusion, 3 times a day before meals, Sliding scale 8 units for preprandial<150, 2 units additional for every 50 above 150., # 15 mL, 0 Refills, Maintenance, 12/06/20 8:13:00 EDT, [facility], Partial fill upon patien... Start Date: 12/06/20 Status: Ordered Lantus 100 u/ml subcutaneous solution = 30 units, Subcutaneous Injection, Daily, # 12 mL, 0 Refills, Maintenance, 12/06/20 8:11:00 EDT, Solution, [facility], Partial fill upon patient request if the prescription is for a schedule II opioid drug., 160, cm, 12/06/20 1:25:00 EDT, He... Start Date: 12/06/20 Status: Ordered Lantus Solostar Pen 100 units/mL subcutaneous solution 44 units in am and 100 units in pm, Subcutaneous Injection, Daily, # 12 mL, 6 Refills, Maintenance,09/10/20 15:08:00 EDT, [facility], Partial fill upon patient request if the prescription is for a schedule II opioid drug., 160.02, cm, ... Start Date: 09/10/20 Status: Ordered MiraLax oral powder for reconstitution = 17 Gm, By Mouth, Daily, dissolve in water before taking, # 255 Gm, 0 Refills, Maintenance, 12/06/20 7:57:00 EDT, REC Powder, [facility], Partial fill upon patient request if the prescription is for a schedule II opioid drug., 17 Gm By Mouth... Start Date: 12/06/20 Status: Ordered Pen [place], 31 G x 5 mm BD Ultra [...] 7:57:00 EDT, Route to Pharm[facility] Electronically, [facility], Partial fill upon patient request if the prescription is for a... Start Date: 12/06/20 Status: Ordered Ventolin HFA 108 mcg/inh inhalation aerosol with adapter 1 puffs, Inhalation, 4 times a day, PRN for wheezing, # 18 Gm, 0 Refills, Maintenance, 07/17/20 13:36:00 EDT, [facility]erosol, [facility], Partial fill upon patient request [...] diabetes managed by her PCP located at [address] [place] [address]/currently on Metformin 500mg BID. MFM consult for glucose control placed. 2BHN consult placed Social History Social History Type Response Smoking Status Former smoker, quit more than 30 days ago entered on: 05/23/20 Sex
--- OUTSIDE RECORDS SUMMARY | 2023-10-28 16:07 | XMS_ITS | Continuity of Care Document ---
Author Organization [facility] Address [address] [place] [address]- Care Team Providers Care Facility Manager Histology Name Role Phone Jaya JORDAN, Carmela Sanchez Primary Care Physician Encounter [facility] [place] Date(s): 07/05/20 - 08/04/20 Maternal Medicine [address] [place] [id number] Allergies, Adverse Reactions, Alerts Substance Reaction [...] Maintenance, 07/17/20 13:21:00 EDT, CR [facility]t, [facility], Partial fill upon patient request if the prescription is for a scheduleII opioid drug. ACOG preE prophylaxis, 160.02, cm,... Start Date: 07/17/20 Stop Date: 01/13/21 Status: Ordered Freestyle Lite Test Strips See Instructions, # 1 pack/packet, Refills 5, Tot. Refills 5, Maintenance, To test BS 4 -6 x day Gestationa; diabetes 0FGW=815 test strips, 06/26/20 17:16:00 EST, Supply, 160.02, cm, 06/13/20 14:32:00 EST, Height Start Date: 06/26/20 Status: Ordered Humalog Kwik Pen 100 units/mL subcutaneous injection See Instructions, 26 ux with breakfast 28 ux with lunch 34 ux with dinner, # 15 mL, 5 Refills, Maintenance, 07/16/20 16:27:00 EDT, [facility], Partial fill upon patient request if the prescription is for a schedule II opioid drug., 160.02,... Start Date: 07/16/20 Status: Ordered Lantus Solostar Pen 100 units/mL subcutaneous solution = 64 units, Subcutaneous Injection, Daily at bedtime, # 15 mL, 6 Refills, Maintenance, 07/16/20 16:27:00 EDT, [facility], Partial fill upon patient request if the prescription is for a schedule II opioid drug., 160.02, cm, 06/13/20 14:32:00 E... Start Date: 07/16/20 Status: Ordered Pen [place], 31 G x 5 mm BD Ultra [...] Refills, Maintenance, 07/17/20 13:36:00 EDT, [facility]erosol, [facility], Partial fill upon patient request [...] diabetes managed by her PCP located at [address] [place] [address]/currently on Metformin 500mg BID. MFM consult for glucose control placed. 2BHN consult placed Social History Social History Type Response Smoking Status Former smoker, quit more than 30 days ago entered on: 05/23/20 Sex
--- OUTSIDE RECORDS SUMMARY | 2023-10-28 16:07 | XMS_ITS | Continuity of Care Document ---
Author Organization [facility] Address [address] [place] [address]- Care Team Providers Care Museum Educator Name Role Phone Jaya JORDAN, Carmela Sanchez Primary Care Physician Encounter [facility] Date(s): 10/05/20 - 11/04/[address] [address]- Allergies, Adverse Reactions, Alerts Substance Reaction Severity [...] Maintenance, 07/17/20 13:21:00 EDT, CR [facility]t, [facility], Partial fill upon patient request if the prescription is for a scheduleII opioid drug. ACOG preE prophylaxis, 160.02, cm,... Start Date: 07/17/20 Stop Date: 01/13/21 Status: Ordered Freestyle Lite Test Strips See Instructions, # 1 pack/packet, Refills 5, Tot. Refills 5, Maintenance, To test BS 4 -6 x day Gestationa; diabetes 4BVM=752 test strips, 06/26/20 17:16:00 EST, Supply, 160.02, cm, 06/13/20 14:32:00 EST, Height Start Date: 06/26/20 Status: Ordered Humalog Kwik Pen 100 units/mL subcutaneous injection See Instructions, 52 ux with breakfast 46 ux with lunch 68 ux with dinner, # 15 mL, 5 Refills, Maintenance, 10/22/20 9:50:00 EDT, [facility], Partial fill upon patient request if the prescription is for a schedule II opioid drug., 160.02, c... Start Date: 10/22/20 Status: Ordered Lantus Solostar Pen 100 units/mL subcutaneous solution 32 units in am and 90 units in pm, Subcutaneous Injection, Daily, # 12 mL, 6 Refills, Maintenance, 09/10/20 15:08:00 EDT, [facility], Partial fill upon patient request if the prescription isfor a schedule II opioid drug., 160.02, cm, ... Start Date: 09/10/20 Status: Ordered Pen [place], 31 G x 5 mm BD Ultra [...] Refills, Maintenance, 07/17/20 13:36:00 EDT, [facility]erosol, [facility], Partial fill upon patient request [...] diabetes managed by her PCP located at [address] [place] [address]/currently on Metformin 500mg BID. MFM consult for glucose control placed. 2BHN consult placed Social History Social History Type Response Smoking Status Former smoker, quit more than 30 days ago entered on: 05/23/20 Sex
--- OUTSIDE RECORDS SUMMARY | 2023-10-28 16:07 | XMS_ITS | Continuity of Care Document ---
Author Organization [facility] Address [address] [place] [address]- Care Team Providers Care Aerobics Instructor Name Role Phone Jaya JORDAN, Carmela D Primary Care Physician Encounter [facility] [place] Date(s): 11/28/20 - 12/28/20 Maternal Medicine [address] [place] [id number] Allergies, Adverse Reactions, Alerts Substance [...] Maintenance, 07/17/20 13:21:00 EDT, CR [facility]t, [facility], Partial fill upon patient request if the prescription is for a scheduleII opioid drug. ACOG preE prophylaxis, 160.02, cm,... Start Date: 07/17/20 Stop Date: 01/13/21 Status: Ordered famotidine 10 mg oral tablet 1 tablet = 10 mg, By Mouth, 2 times a day, # 28 tablet, 0 Refills, Maintenance, 12/06/20 7:57:00 EDT, Tablet, [facility], Partial fill upon patient request if the prescription is for a schedule II opioid drug., 160, cm, 12/06/20 1:25:00 EDT,... Start Date: 12/06/20 Status: Ordered Flovent HFA 44 mcg/inh inhalation aerosol 2 puffs, Inhalation, 2 times a day, # 11 Gm, 0 Refills, Maintenance, 11/30/20 12:50:00 EDT, [facility]erosol, [facility], Partial fill upon patient request [...] BS 4 -6 x day Gestationa; diabetes 0QWN=498 test strips, 06/26/20 17:16:00 EST, Supply, 160.02, cm, 06/13/20 14:32:00 EST, Height Start Date: 06/26/20 Status: Ordered Humalog Kwik Pen 100 units/mL subcutaneous injection See Instructions, 60 ux with breakfast 54 ux with lunch 78 ux with dinner, # 15 mL, 5 Refills, Maintenance, 10/22/20 9:50:00 EDT, [facility], Partial fill upon patient request if the prescription is for a schedule II opioid drug., 160.02, c... Start Date: 10/22/20 Status: Ordered ibuprofen 600 mg oral tablet 600 mg, 1, tablet, By Mouth, 4 times a day, # 40 tablet, Refills 0, Tot. Refills 0, Maintenance, 12/06/20 7:58:00 EDT, Route [place] Pharm[facility] Electronically, [facility], Partial fill upon patientrequest if the prescription is for a schedule II op... Start Date: 12/06/20 Status: Ordered insulin lispro 100 u/ml subcutaneous injection = 8 units, Subcutaneous Infusion, 3 times a day before meals, Sliding scale 8 units for preprandial<150, 2 units additional for every 50 above 150., # 15 mL, 0 Refills, Maintenance, 12/06/20 8:13:00 EDT, [facility], Partial fill upon patien... Start Date: 12/06/20 Status: Ordered Lantus 100 u/ml subcutaneous solution = 30 units, Subcutaneous Injection, Daily, # 12 mL, 0 Refills, Maintenance, 12/06/20 8:11:00 EDT, Solution, [facility], Partial fill upon patient request if the prescription is for a schedule II opioid drug., 160, cm, 12/06/20 1:25:00 EDT, He... Start Date: 12/06/20 Status: Ordered Lantus Solostar Pen 100 units/mL subcutaneous solution 44 units in am and 100 units in pm, Subcutaneous Injection, Daily, # 12 mL, 6 Refills, Maintenance,09/10/20 15:08:00 EDT, [facility], Partial fill upon patient request if the prescription is for a schedule II opioid drug., 160.02, cm, ... Start Date: 09/10/20 Status: Ordered MiraLax oral powder for reconstitution = 17 Gm, By Mouth, Daily, dissolve in water before taking, # 255 Gm, 0 Refills, Maintenance, 12/06/20 7:57:00 EDT, REC Powder, [facility], Partial fill upon patient request if the prescription is for a schedule II opioid drug., 17 Gm By Mouth... Start Date: 12/06/20 Status: Ordered Pen [place], 31 G x 5 mm BD Ultra [...] 7:57:00 EDT, Route to Pharm[facility] Electronically, [facility], Partial fill upon patient request if the prescription is for a... Start Date: 12/06/20 Status: Ordered Ventolin HFA 108 mcg/inh inhalation aerosol with adapter 1 puffs, Inhalation, 4 times a day, PRN for wheezing, # 18 Gm, 0 Refills, Maintenance, 07/17/20 13:36:00 EDT, Aerosol, [facility], Partial fill upon patient request [...] diabetes managed by her PCP located at [address] [place] [address]/currently on Metformin 500mg BID. MFM consult for glucose control placed. 2BHN consult placed Social History Social History Type Response Smoking Status Former smoker, quit more than 30 days ago entered on: 05/23/20 Sex
--- OUTSIDE RECORDS SUMMARY | 2023-10-28 16:07 | XMS_ITS | Continuity of Care Document ---
Author Organization [facility] Address [address] [place] [phone]- Care Team Providers Care Commutator Presser Name Role Phone Jaya JORDAN, Carmela Sanchez Primary Care Physician Encounter [facility] Date(s): 01/25/21 - 02/24/[address] [address]- Allergies, Adverse Reactions, Alerts Substance Reaction Severity [...] Maintenance, 07/17/20 13:21:00 EDT, CR [facility]t, [facility], Partial fill upon patient request if the prescription is for a scheduleII opioid drug. ACOG preE prophylaxis, 160.02, cm,... Start Date: 07/17/20 Stop Date: 01/13/21 Status: Ordered famotidine 10 mg oral tablet 1 tablet = 10 mg, By Mouth, 2 times a day, # 28 tablet, 0 Refills, Maintenance, 12/06/20 7:57:00 EDT, Tablet, [facility], Partial fill upon patient request if the prescription is for a schedule II opioid drug., 160, cm, 12/06/20 1:25:00 EDT,... Start Date: 12/06/20 Status: Ordered Flovent HFA 44 mcg/inh inhalation aerosol 2 puffs, Inhalation, 2 times a day, # 11 Gm, 0 Refills, Maintenance, 11/30/20 12:50:00 EDT, [facility]erosol, [facility], Partial fill upon patient request [...] BS 4 -6 x day Gestationa; diabetes 0MFM=455 test strips, 06/26/20 17:16:00 EST, Supply, 160.02, cm, 06/13/20 14:32:00 EST, Height Start Date: 06/26/20 Status: Ordered Humalog Kwik Pen 100 units/mL subcutaneous injection See Instructions, 60 ux with breakfast 54 ux with lunch 78 ux with dinner, # 15 mL, 5 Refills, Maintenance, 10/22/20 9:50:00 EDT, [facility], Partial fill upon patient request if the prescription is for a schedule II opioid drug., 160.02, c... Start Date: 10/22/20 Status: Ordered ibuprofen 600 mg oral tablet 600 mg, 1, tablet, By Mouth, 4 times a day, # 40 tablet, Refills 0, Tot. Refills 0, Maintenance, 12/06/20 7:58:00 EDT, Route to Pharm[facility] Electronically, [facility], Partial fill upon patientrequest if the prescription is for a schedule II op... Start Date: 12/06/20 Status: Ordered insulin lispro 100 u/ml subcutaneous injection = 8 units, Subcutaneous Infusion, 3 times a day before meals, Sliding scale 8 units for preprandial<150, 2 units additional for every 50 above 150., # 15 mL, 0 Refills, Maintenance, 12/06/20 8:13:00 EDT, [facility], Partial fill upon patien... Start Date: 12/06/20 Status: Ordered Lantus 100 u/ml subcutaneous solution = 30 units, Subcutaneous Injection, Daily, # 12 mL, 0 Refills, Maintenance, 12/06/20 8:11:00 EDT, Solution, [facility], Partial fill upon patient request if the prescription is for a schedule II opioid drug., 160, cm, 12/06/20 1:25:00 EDT, He... Start Date: 12/06/20 Status: Ordered Lantus Solostar Pen 100 units/mL subcutaneous solution 44 units in am and 100 units in pm, Subcutaneous Injection, Daily, # 12 mL, 6 Refills, Maintenance,09/10/20 15:08:00 EDT, [facility], Partial fill upon patient request if the prescription is for a schedule II opioid drug., 160.02, cm, ... Start Date: 09/10/20 Status: Ordered MiraLax oral powder for reconstitution = 17 Gm, By Mouth, Daily, dissolve in water before taking, # 255 Gm, 0 Refills, Maintenance, 12/06/20 7:57:00 EDT, REC Powder, [facility], Partial fill upon patient request if the prescription is for a schedule II opioid drug., 17 Gm By Mouth... Start Date: 12/06/20 Status: Ordered Pen [place], 31 G x 5 mm BD Ultra [...] 7:57:00 EDT, Route to Pharm[facility] Electronically, [facility], Partial fill upon patient request if the prescription is for a... Start Date: 12/06/20 Status: Ordered Ventolin HFA 108 mcg/inh inhalation aerosol with adapter 1 puffs, Inhalation, 4 times a day, PRN for wheezing, # 18 Gm, 0 Refills, Maintenance, 07/17/20 13:36:00 EDT, Aerosol, [facility], Partial fill upon patient request [...] managed by her PCP located at [address] [place] [address]/currently on Metformin 500mg BID. MFM consult for glucose control placed. 2BHN consult placed Social History Social History Type Response Smoking Status Former smoker, quit more than 30 days ago entered on: 05/23/20 Sex
--- OUTSIDE RECORDS SUMMARY | 2023-10-28 16:07 | XMS_ITS | Continuity of Care Document ---
Author Organization [facility] Address [address] [place] [address]- Care Team Providers Care Product Grader Name Role Phone Jaya JORDAN, Carmela Sanchez Primary Care Physician Encounter [facility] [place] Date(s): 10/05/20 - 11/04/20 Maternal Medicine [address] [place] [id number] Allergies, Adverse Reactions, Alerts Substance [...] cm, 06/13/20 14:32:00 EST, Height Start Date: 2/24/21 Status: Ordered aspirin 81 mg oral delayed release tablet 2 tablet = 162 mg, By Mouth, Daily, # 60 tablet, 5 Refills, Maintenance, 07/17/20 13:21:00 EDT, [place] [facility], [facility], Partial fill upon patient request if the prescription is for a scheduleII opioid drug. ACOG preE prophylaxis, 160.02, cm,... Start Date: 07/17/20 Stop Date: 01/13/21 Status: Ordered Freestyle Lite Test Strips See Instructions, # 1 pack/packet, Refills 5, Tot. Refills 5, Maintenance, To test BS 4 -6 x day Gestationa; diabetes 3UDR=885 test strips, 06/26/20 17:16:00 EST, Supply, 160.02, cm, 06/13/20 14:32:00 EST, Height Start Date: 06/26/20 Status: Ordered Humalog Kwik Pen 100 units/mL subcutaneous injection See Instructions, 52 ux with breakfast 46 ux with lunch 68 ux with dinner, # 15 mL, 5 Refills, Maintenance, 10/22/20 9:50:00 EDT, [facility], Partial fill upon patient request if the prescription is for a schedule II opioid drug., 160.02, c... Start Date: 10/22/20 Status: Ordered Lantus Solostar Pen 100 units/mL subcutaneous solution 32 units in am and 90 units in pm, Subcutaneous Injection, Daily, # 12 mL, 6 Refills, Maintenance, 09/10/20 15:08:00 EDT, [facility], Partial fill upon patient request if the prescription isfor a schedule II opioid drug., 160.02, cm, ... Start Date: 09/10/20 Status: Ordered Pen [place], 31 G x 5 mm BD Ultra [...] Refills, Maintenance, 07/17/20 13:36:00 EDT, Aerosol, [facility], Partial fill upon patient request [...] managed by her PCP located at [address] [place] [address]/currently on Metformin 500mg BID. MFM consult for glucose control placed. 2BHN consult placed Social History Social History Type Response Smoking Status Former smoker, quit more than 30 days ago entered on: 05/23/20 Sex
--- OUTSIDE RECORDS SUMMARY | 2023-10-28 16:07 | XMS_ITS | Continuity of Care Document ---
Author Organization [facility] Address [address] [place] [address]- Care Team Providers Care Poultry Scalder Name Role Phone Jaya JORDAN, Carmela D Primary Care Physician Encounter [facility] [place] Date(s): 07/19/20 - 08/18/20 Maternal Medicine [address] [place] [id number] Allergies, Adverse Reactions, Alerts Substance Reaction Severity Status NKA Active Immunizations Given and Recorded Vaccine Date Status Refusal Reason SARS-CoV-2 (COVID-19) mRNA BNT-162b2 vac 08/14/20 Recorded tetanus/diphtheria/pertussis, acel(Tdap) 06/15/13 Given influenza virus vaccine, [...] Maintenance, 07/17/20 13:21:00 EDT, CR [facility]t, [facility], Partial fill upon patient request if the prescription is for a scheduleII opioid drug. ACOG preE prophylaxis, 160.02, cm,... Start Date: 07/17/20 Stop Date: 01/13/21 Status: Ordered Freestyle Lite Test Strips See Instructions, # 1 pack/packet, Refills 5, Tot. Refills 5, Maintenance, To test BS 4 -6 x day Gestationa; diabetes 0BOT=212 test strips, 06/26/20 17:16:00 EST, Supply, 160.02, cm, 06/13/20 14:32:00 EST, Height Start Date: 06/26/20 Status: Ordered Humalog Kwik Pen 100 units/mL subcutaneous injection See Instructions, 30 ux with breakfast 28 ux with lunch 42 ux with dinner, # 15 mL, 5 Refills, Maintenance, 07/16/20 16:27:00 EDT, [facility], Partial fill upon patient request if the prescription is for a schedule II opioid drug., 160.02,... Start Date: 07/16/20 Status: Ordered Lantus Solostar Pen 100 units/mL subcutaneous solution = 76 units, Subcutaneous Injection, Daily at bedtime, # 15 mL, 6 Refills, Maintenance, 07/16/20 16:27:00 EDT, [facility], Partial fill upon patient request if the prescription is for a schedule II opioid drug., 160.02, cm, 06/13/20 14:32:00 E... Start Date: 07/16/20 Status: Ordered Pen [place], 31 G x 5 mm BD Ultra [...] Refills, Maintenance, 07/17/20 13:36:00 EDT, [facility]erosol, [facility], Partial fill upon patient request [...] diabetes managed by her PCP located at [address] [place] [address]/currently on Metformin 500mg BID. MFM consult for glucose control placed. 2BHN consult placed Social History Social History Type Response Smoking Status Former smoker, quit more than 30 days ago entered on: 05/23/20 Sex
--- OUTSIDE RECORDS SUMMARY | 2023-10-28 16:07 | XMS_ITS | Continuity of Care Document ---
Author Organization [facility] Address [address] [place] [address]- Care Team Providers Care Forestry Extension Specialist Name Role Phone Jaya JORDAN, Carmela Sanchez Primary Care Physician Encounter [facility] [place] Date(s): 06/29/20 - 07/29/20 Maternal Medicine [address] [place] [id number] Allergies, Adverse Reactions, Alerts Substance Reaction [...] Maintenance, 07/17/20 13:21:00 EDT, [place] [facility], Partial fill upon patient request if the prescription is for a scheduleII opioid drug. ACOG preE prophylaxis, 160.02, cm,... Start Date: 07/17/20 Stop Date: 01/13/21 Status: Ordered Freestyle Lite Test Strips See Instructions, # 1 pack/packet, Refills 5, Tot. Refills 5, Maintenance, To test BS 4 -6 x day Gestationa; diabetes 4NUW=305 test strips, 06/26/20 17:16:00 EST, Supply, 160.02, cm, 06/13/20 14:32:00 EST, Height Start Date: 06/26/20 Status: Ordered Humalog Kwik Pen 100 units/mL subcutaneous injection See Instructions, 22 ux with breakfast 20 ux with lunch 24 ux with dinner, # 15 mL, 5 Refills, Maintenance, 07/16/20 16:27:00 EDT, [facility], Partial fill upon patient request if the prescription is for a schedule II opioid drug., 160.02,... Start Date: 07/16/20 Status: Ordered Lantus Solostar Pen 100 units/mL subcutaneous solution = 56 units, Subcutaneous Injection, Daily at bedtime, # 15 mL, 6 Refills, Maintenance, 07/16/20 16:27:00 EDT, [facility], Partial fill upon patient request if the prescription is for a schedule II opioid drug., 160.02, cm, 06/13/20 14:32:00 E... Start Date: 07/16/20 Status: Ordered Pen [place], 31 G x 5 mm BD Ultra [...] Refills, Maintenance, 07/17/20 13:36:00 EDT, Aerosol, [facility], Partial fill upon patient request [...] diabetes managed by her PCP located at [address] [place] [address]/currently on Metformin 500mg BID. MFM consult for glucose control placed. 2BHN consult placed Social History Social History Type Response Smoking Status Former smoker, quit more than 30 days ago entered on: 05/23/20 Sex
--- OUTSIDE RECORDS SUMMARY | 2023-10-28 16:07 | XMS_ITS | Continuity of Care Document ---
Author Organization [facility] Address [address] [place] [address]- Care Team Providers Care Transportation Job Titles Name Role Phone Jaya JORDAN, Carmela Sanchez Primary Care Physician [phone] Encounter [facility] Date(s): 06/04/20 - 07/04/[address] [address]- Allergies, Adverse Reactions, Alerts Substance Reaction Severity [...] BS 4 -6 x day Gestationa; diabetes 4GJM=652 test strips, 06/26/20 17:16:00 EST, Supply, 160.02, cm, 06/13/20 14:32:00 EST, Height Start Date: 06/26/20 Status: Ordered Humalog Kwik Pen 100 units/mL subcutaneous injection = 14 units, Subcutaneous Injection, 3 times a day before meals, # 15 mL, 5 Refills, Maintenance, 06/20/20 17:24:00 EST, [id number], Partial fill upon patient request if the prescription is for a schedule II opioid drug., 160.02, cm, 06/13/20... Start Date: 06/20/20 Status: Ordered Lantus Solostar Pen 100 units/mL subcutaneous solution = 42 units, Subcutaneous Injection, Daily at bedtime, # 15 mL, 6 Refills, Maintenance, 06/13/20 20:45:00 EST, [id number], Partial fill upon patient request if the prescription is for a schedule II opioid drug., 160.02, cm, 06/13/20 14:32:00 ES... Start Date: 06/13/20 Status: Ordered Pen [place], 31 G x 5 mm BD Ultra [...] diabetes managed by her PCP located at [address] [place] [address]/currently on Metformin 500mg BID. MFM consult for glucose control placed. 2BHN consult placed Social History Social History Type Response Smoking Status Former smoker, quit more than 30 days ago entered on: 05/23/20 Sex
--- OUTSIDE RECORDS SUMMARY | 2023-10-28 16:07 | XMS_ITS | Continuity of Care Document ---
Author Organization [facility] Address [address] [place] [address]- Care Team Providers Care Pairer Inspector Name Role Phone Jaya JORDAN, Carmela D Primary Care Physician Encounter [facility] Date(s): 09/11/20 - 10/14/[address] [address]- Attending Physician: Not on Staff, Attending MD [...] Maintenance, 07/17/20 13:21:00 EDT, CR Tablet, [facility], Partial fill upon patient request if the prescription is for a scheduleII opioid drug. ACOG preE prophylaxis, 160.02, cm,... Start Date: 07/17/20 Stop Date: 01/13/21 Status: Ordered Freestyle Lite Test Strips See Instructions, # 1 pack/packet, Refills 5, Tot. Refills 5, Maintenance, To test BS 4 -6 x day Gestationa; diabetes 3KSD=923 test strips, 06/26/20 17:16:00 EST, Supply, 160.02, cm, 06/13/20 14:32:00 EST, Height Start Date: 06/26/20 Status: Ordered Humalog Kwik Pen 100 units/mL subcutaneous injection See Instructions, 46 ux with breakfast 38 ux with lunch 60 ux with dinner, # 15 mL, 5 Refills, Maintenance, 09/10/20 15:09:00 EDT, [facility], Partial fill upon patient request if the prescription is for a schedule II opioid drug., 160.02,... Start Date: 09/10/20 Status: Ordered Lantus Solostar Pen 100 units/mL subcutaneous solution 20 units in am and 86 units in pm, Subcutaneous Injection, Daily, # 30 mL, 6 Refills, Maintenance, 09/10/20 15:08:00 EDT, [facility], Partial fill upon patient request if the prescription isfor a schedule II opioid drug., 160.02, cm, ... Start Date: 09/10/20 Status: Ordered Pen [place], 31 G x 5 mm BD Ultra [...] Refills, Maintenance, 07/17/20 13:36:00 EDT, [facility], [facility], Partial fill upon patient request [...] managed by her PCP located at [address] [place] [address]/currently on Metformin 500mg BID. MFM consult for glucose control placed. 2BHN consult placed Social History Social History Type Response Smoking Status Former smoker, quit more than 30 days ago entered on: 05/23/20 Sex
--- OUTSIDE RECORDS SUMMARY | 2023-10-28 16:07 | XMS_ITS | Continuity of Care Document ---
Author Organization [facility] Address [address] [place] [address]- Care Team Providers Care Gis Physical Scientist Name Role Phone Jaya JORDAN, Carmela D Primary Care Physician Encounter [facility] Date(s): 10/04/20 - 01/19/[address] [address]- Attending Physician: Not on Staff, Attending MD [...] To use with once daily insulin administartion, 02/24/21 20:48:00 EST, Supply, 160.02, cm, 06/13/20 14:32:00 EST, Height Start Date: 06/13/20 Status: Ordered aspirin 81 mg oral delayed release tablet 2 tablet = 162 mg, By Mouth, Daily, # 60 tablet, 5 Refills, Maintenance, 07/17/20 13:21:00 EDT, CR [facility]t, [facility], Partial fill upon patient request if the prescription is for a scheduleII opioid drug. ACOG preE prophylaxis, 160.02, cm,... Start Date: 07/17/20 Stop Date: 01/13/21 Status: Ordered famotidine 10 mg oral tablet 1 tablet = 10 mg, By Mouth, 2 times a day, # 28 tablet, 0 Refills, Maintenance, 12/06/20 7:57:00 EDT, Tablet, [facility], Partial fill upon patient request if the prescription is for a schedule II opioid drug., 160, cm, 12/06/20 1:25:00 EDT,... Start Date: 12/06/20 Status: Ordered Flovent HFA 44 mcg/inh inhalation aerosol 2 puffs, Inhalation, 2 times a day, # 11 Gm, 0 Refills, Maintenance, 11/30/20 12:50:00 EDT, [facility]ol, [facility], Partial fill upon patient request [...] BS 4 -6 x day Gestationa; diabetes 1CRD=151 test strips, 06/26/20 17:16:00 EST, Supply, 160.02, cm, 06/13/20 14:32:00 EST, Height Start Date: 06/26/20 Status: Ordered Humalog Kwik Pen 100 units/mL subcutaneous injection See Instructions, 60 ux with breakfast 54 ux with lunch 78 ux with dinner, # 15 mL, 5 Refills, Maintenance, 10/22/20 9:50:00 EDT, [facility], Partial fill upon patient request if the prescription is for a schedule II opioid drug., 160.02, c... Start Date: 10/22/20 Status: Ordered ibuprofen 600 mg oral tablet 600 mg, 1, tablet, By Mouth, 4 times a day, # 40 tablet, Refills 0, Tot. Refills 0, Maintenance, 12/06/20 7:58:00 EDT, Route to Pharmacy Electronically, [facility], Partial fill upon patientrequest if the prescription is for a schedule II op... Start Date: 12/06/20 Status: Ordered insulin lispro 100 u/ml subcutaneous injection = 8 units, Subcutaneous Infusion, 3 times a day before meals, Sliding scale 8 units for preprandial<150, 2 units additional for every 50 above 150., # 15 mL, 0 Refills, Maintenance, 12/06/20 8:13:00 EDT, [facility], Partial fill upon patien... Start Date: 12/06/20 Status: Ordered Lantus 100 u/ml subcutaneous solution = 30 units, Subcutaneous Injection, Daily, # 12 mL, 0 Refills, Maintenance, 12/06/20 8:11:00 EDT, Solution, [facility], Partial fill upon patient request if the prescription is for a schedule II opioid drug., 160, cm, 12/06/20 1:25:00 EDT, He... Start Date: 12/06/20 Status: Ordered Lantus Solostar Pen 100 units/mL subcutaneous solution 44 units in am and 100 units in pm, Subcutaneous Injection, Daily, # 12 mL, 6 Refills, Maintenance,09/10/20 15:08:00 EDT, [facility], Partial fill upon patient request if the prescription is for a schedule II opioid drug., 160.02, cm, ... Start Date: 09/10/20 Status: Ordered MiraLax oral powder for reconstitution = 17 Gm, By Mouth, Daily, dissolve in water before taking, # 255 Gm, 0 Refills, Maintenance, 12/06/20 7:57:00 EDT, REC Powder, [facility], Partial fill upon patient request if the prescription is for a schedule II opioid drug., 17 Gm By Mouth... Start Date: 12/06/20 Status: Ordered Pen [place], 31 G x 5 mm BD Ultra [...] 7:57:00 EDT, Route to Pharmacy Electronically, [facility], Partial fill upon patient request if the prescription is for a... Start Date: 12/06/20 Status: Ordered Ventolin HFA 108 mcg/inh inhalation aerosol with adapter 1 puffs, Inhalation, 4 times a day, PRN for wheezing, # 18 Gm, 0 Refills, Maintenance, 07/17/20 13:36:00 EDT, [facility]erosol, [facility], Partial fill upon patient request [...] diabetes managed by her PCP located at [address] [place] [address]/currently on Metformin 500mg BID. MFM consult for glucose control placed. 2BHN consult placed Social History Social History Type Response Smoking Status Former smoker, quit more than 30 days ago entered on: 05/23/20 Sex
--- OUTSIDE RECORDS SUMMARY | 2023-10-28 16:07 | XMS_ITS | Continuity of Care Document ---
Author Organization [facility] Address [address] [place] [address]- Care Team Providers Care Play Leader Name Role Phone Jaya JORDAN, Carmela D Primary Care Physician Encounter [facility] Date(s): 12/04/20 - 02/09/[address] [address] Attending Physician: Not on Staff, Attending [...] Maintenance, 07/17/20 13:21:00 EDT, [facility]t, [facility], Partial fill upon patient request if the prescription is for a scheduleII opioid drug. ACOG preE prophylaxis, 160.02, cm,... Start Date: 07/17/20 Stop Date: 01/13/21 Status: Ordered famotidine 10 mg oral tablet 1 tablet = 10 mg, By Mouth, 2 times a day, # 28 tablet, 0 Refills, Maintenance, 12/06/20 7:57:00 EDT, Tablet, [facility], Partial fill upon patient request if the prescription is for a schedule II opioid drug., 160, cm, 12/06/20 1:25:00 EDT,... Start Date: 12/06/20 Status: Ordered Flovent HFA 44 mcg/inh inhalation aerosol 2 puffs, Inhalation, 2 times a day, # 11 Gm, 0 Refills, Maintenance, 11/30/20 12:50:00 EDT, [facility], [facility], Partial fill upon patient request [...] BS 4 -6 x day Gestationa; diabetes 3VYW=186 test strips, 06/26/20 17:16:00 EST, Supply, 160.02, cm, 06/13/20 14:32:00 EST, Height Start Date: 06/26/20 Status: Ordered Humalog Kwik Pen 100 units/mL subcutaneous injection See Instructions, 60 ux with breakfast 54 ux with lunch 78 ux with dinner, # 15 mL, 5 Refills, Maintenance, 10/22/20 9:50:00 EDT, [facility], Partial fill upon patient request if the prescription is for a schedule II opioid drug., 160.02, c... Start Date: 10/22/20 Status: Ordered ibuprofen 600 mg oral tablet 600 mg, 1, tablet, By Mouth, 4 times a day, # 40 tablet, Refills 0, Tot. Refills 0, Maintenance, 12/06/20 7:58:00 EDT, Route to Pharm[facility] Electronically, [facility], Partial fill upon patientrequest if the prescription is for a schedule II op... Start Date: 12/06/20 Status: Ordered insulin lispro 100 u/ml subcutaneous injection = 8 units, Subcutaneous Infusion, 3 times a day before meals, Sliding scale 8 units for preprandial<150, 2 units additional for every 50 above 150., # 15 mL, 0 Refills, Maintenance, 12/06/20 8:13:00 EDT, [facility], Partial fill upon patien... Start Date: 12/06/20 Status: Ordered Lantus 100 u/ml subcutaneous solution = 30 units, Subcutaneous Injection, Daily, # 12 mL, 0 Refills, Maintenance, 12/06/20 8:11:00 EDT, Solution, [facility], Partial fill upon patient request if the prescription is for a schedule II opioid drug., 160, cm, 12/06/20 1:25:00 EDT, He... Start Date: 12/06/20 Status: Ordered Lantus Solostar Pen 100 units/mL subcutaneous solution 44 units in am and 100 units in pm, Subcutaneous Injection, Daily, # 12 mL, 6 Refills, Maintenance,09/10/20 15:08:00 EDT, [facility], Partial fill upon patient request if the prescription is for a schedule II opioid drug., 160.02, cm, ... Start Date: 09/10/20 Status: Ordered MiraLax oral powder for reconstitution = 17 Gm, By Mouth, Daily, dissolve in water before taking, # 255 Gm, 0 Refills, Maintenance, 12/06/20 7:57:00 EDT, REC Powder, [facility], Partial fill upon patient request if the prescription is for a schedule II opioid drug., 17 Gm By Mouth... Start Date: 12/06/20 Status: Ordered Pen [place], 31 G x 5 mm BD Ultra [...] 7:57:00 EDT, Route to Pharmacy Electronically, [facility], Partial fill upon patient request if the prescription is for a... Start Date: 12/06/20 Status: Ordered Ventolin HFA 108 mcg/inh inhalation aerosol with adapter 1 puffs, Inhalation, 4 times a day, PRN for wheezing, # 18 Gm, 0 Refills, Maintenance, 07/17/20 13:36:00 EDT, [facility]erosol, [facility], Partial fill upon patient request [...] diabetes managed by her PCP located at [address] [place] [address]/currently on Metformin 500mg BID. MFM consult for glucose control placed. 2BHN consult placed Social History Social History Type Response Smoking Status Former smoker, quit more than 30 days ago entered on: 05/23/20 Sex
--- OUTSIDE RECORDS SUMMARY | 2023-10-28 16:07 | XMS_ITS | Continuity of Care Document ---
Author Organization [facility] ter Address [address] [place] [address]- Care Team Providers Care Medical Donation Professional Name Role Phone Jaya JORDAN, Carmela Sanchez Primary Care Physician [phone] Encounter [facility] Date(s): 11/20/20 - 12/26/[address] [address] Attending Physician: Arabella Duffy DO [...] Maintenance, 07/17/20 13:21:00 EDT, CR Tablet, [facility], Partial fill upon patient request if the prescription is for a scheduleII opioid drug. ACOG preE prophylaxis, 160.02, cm,... Start Date: 07/17/20 Stop Date: 01/13/21 Status: Ordered famotidine 10 mg oral tablet 1 tablet = 10 mg, By Mouth, 2 times a day, # 28 tablet, 0 Refills, Maintenance, 12/06/20 7:57:00 EDT, Tablet, [facility], Partial fill upon patient request if the prescription is for a schedule II opioid drug., 160, cm, 12/06/20 1:25:00 EDT,... Start Date: 12/06/20 Status: Ordered Flovent HFA 44 mcg/inh inhalation aerosol 2 puffs, Inhalation, 2 times a day, # 11 Gm, 0 Refills, Maintenance, 11/30/20 12:50:00 EDT, [facility]erosol, [facility], Partial fill upon patient request [...] BS 4 -6 x day Gestationa; diabetes 5XXI=257 test strips, 06/26/20 17:16:00 EST, Supply, 160.02, cm, 06/13/20 14:32:00 EST, Height Start Date: 06/26/20 Status: Ordered Humalog Kwik Pen 100 units/mL subcutaneous injection See Instructions, 60 ux with breakfast 54 ux with lunch 78 ux with dinner, # 15 mL, 5 Refills, Maintenance, 10/22/20 9:50:00 EDT, [facility], Partial fill upon patient request if the prescription is for a schedule II opioid drug., 160.02, c... Start Date: 10/22/20 Status: Ordered ibuprofen 600 mg oral tablet 600 mg, 1, tablet, By Mouth, 4 times a day, # 40 tablet, Refills 0, Tot. Refills 0, Maintenance, 12/06/20 7:58:00 EDT, Route to Pharmacy Electronically, [facility], Partial fill upon patientrequest if the prescription is for a schedule II op... Start Date: 12/06/20 Status: Ordered insulin lispro 100 u/ml subcutaneous injection = 8 units, Subcutaneous Infusion, 3 times a day before meals, Sliding scale 8 units for preprandial<150, 2 units additional for every 50 above 150., # 15 mL, 0 Refills, Maintenance, 12/06/20 8:13:00 EDT, [facility], Partial fill upon patien... Start Date: 12/06/20 Status: Ordered Lantus 100 u/ml subcutaneous solution = 30 units, Subcutaneous Injection, Daily, # 12 mL, 0 Refills, Maintenance, 12/06/20 8:11:00 EDT, Solution, [facility], Partial fill upon patient request if the prescription is for a schedule II opioid drug., 160, cm, 12/06/20 1:25:00 EDT, He... Start Date: 12/06/20 Status: Ordered Lantus Solostar Pen 100 units/mL subcutaneous solution 44 units in am and 100 units in pm, Subcutaneous Injection, Daily, # 12 mL, 6 Refills, Maintenance,09/10/20 15:08:00 EDT, [facility], Partial fill upon patient request if the prescription is for a schedule II opioid drug., 160.02, cm, 08/13/... Start Date: 09/10/20 Status: Ordered MiraLax oral powder for reconstitution = 17 Gm, By Mouth, Daily, dissolve in water before taking, # 255 Gm, 0 Refills, Maintenance, 12/06/20 7:57:00 EDT, REC Powder, [facility], Partial fill upon patient request [...] 7:57:00 EDT, Route to Pharmacy Electronically, [facility], Partial fill upon patient request, 160,... Start Date: 12/06/20 Stop Date: 12/27/20 Status: Ordered Pen [place], 31 G x 5 mm BD Ultra [...] 7:57:00 EDT, Route to Pharmacy Electronically, [facility], Partial fill upon patient request if the prescription is for a... Start Date: 12/06/20 Status: Ordered Ventolin HFA 108 mcg/inh inhalation aerosol with adapter 1 puffs, Inhalation, 4 times a day, PRN for wheezing, # 18 Gm, 0 Refills, Maintenance, 07/17/20 13:36:00 EDT, Aerosol, [facility], Partial fill upon patient request [...] diabetes managed by her PCP located at [address] [place] [address]/currently on Metformin 500mg BID. MFM consult for glucose control placed. 2BHN consult placed Social History Social History Type Response Smoking Status Former smoker, quit more than 30 days ago entered on: 05/23/20 Sex
--- OUTSIDE RECORDS SUMMARY | 2023-10-28 16:07 | XMS_ITS | Continuity of Care Document ---
Author Organization [facility] Address [address] [place] [address]- Care Team Providers Care Graphics Production Specialist Name Role Phone Jaya JORDAN, Carmela Sanchez Primary Care Physician [phone] Encounter [facility] Date(s): 08/15/20 - 09/14/[address] [address]- Allergies, Adverse Reactions, Alerts Substance Reaction Severity [...] Maintenance, 07/17/20 13:21:00 EDT, CR [place]t, [facility], Partial fill upon patient request if the prescription is for a scheduleII opioid drug. ACOG preE prophylaxis, 160.02, cm,... Start Date: 07/17/20 Stop Date: 01/13/21 Status: Ordered Freestyle Lite Test Strips See Instructions, # 1 pack/packet, Refills 5, Tot. Refills 5, Maintenance, To test BS 4 -6 x day Gestationa; diabetes 4JOC=130 test strips, 06/26/20 17:16:00 EST, Supply, 160.02, cm, 06/13/20 14:32:00 EST, Height Start Date: 06/26/20 Status: Ordered Humalog Kwik Pen 100 units/mL subcutaneous injection See Instructions, 38 ux with breakfast 30 ux with lunch 50 ux with dinner, # 15 mL, 5 Refills, Maintenance, 09/10/20 15:09:00 EDT, [facility], Partial fill upon patient request if the prescription is for a schedule II opioid drug., 160.02,... Start Date: 09/10/20 Status: Ordered Lantus Solostar Pen 100 units/mL subcutaneous solution = 86 units, Subcutaneous Injection, Daily at bedtime, # 15 mL, 6 Refills, Maintenance, 09/10/20 15:08:00 EDT, [facility], Partial fill upon patient request if the prescription is for a schedule II opioid drug., 160.02, cm, 08/13/20 8:50:00 ED... Start Date: 09/10/20 Status: Ordered Pen [place], 31 G x 5 mm BD Ultra [...] Refills, Maintenance, 07/17/20 13:36:00 EDT, [facility]erosol, [facility], Partial fill upon patient request [...] diabetes managed by her PCP located at [address] [place] [address]/currently on Metformin 500mg BID. MFM consult for glucose control placed. 2BHN consult placed Social History Social History Type Response Smoking Status Former smoker, quit more than 30 days ago entered on: 05/23/20 Sex
--- OUTSIDE RECORDS SUMMARY | 2023-10-28 16:07 | XMS_ITS | Continuity of Care Document ---
Author Organization [facility] ter Address [address] [place] [address]- Care Team Providers Care Camp Director Name Role Phone Jaya JORDAN, Carmela Sanchez Primary Care Physician [phone] [place] [facility] [place](s[place] 10/23/20 - 11/28/[address] [address] Attending Physician: Arabella Duffy DO Admitting Physician: [...] Maintenance, 07/17/20 13:21:00 EDT, CR [place] [facility], Partial fill upon patient request [...] BS 4 -6 x day Gestationa; diabetes 5MMV=910 test strips, 06/26/20 17:16:00 EST, Supply, 160.02, cm, 06/13/20 14:32:00 EST, Height Start Date: 06/26/20 Status: Ordered Humalog Kwik Pen 100 units/mL subcutaneous injection See Instructions, 60 ux with breakfast 54 ux with lunch 78 ux with dinner, # 15 mL, 5 Refills, Maintenance, 10/22/20 9:50:00 EDT, [facility], Partial fill upon patient request if the prescription is for a schedule II opioid drug., 160.02, c... Start Date: 10/22/20 Status: Ordered Lantus Solostar Pen 100 units/mL subcutaneous solution 44 units in am and 100 units in pm, Subcutaneous Injection, Daily, # 12 mL, 6 Refills, Maintenance,09/10/20 15:08:00 EDT, [facility], Partial fill upon patient request if the prescription is for a schedule II opioid drug., 160.02, cm, 08/13/... Start Date: 09/10/20 Status: Ordered Pen [place], 31 G x 5 mm BD Ultra [...] Refills, Maintenance, 07/17/20 13:36:00 EDT, [facility]erosol, [facility], Partial fill upon patient request [...] managed by her PCP located at [address] [place] [address]/currently on Metformin 500mg BID. MFM consult for glucose control placed. 2BHN consult placed Social History Social History Type Response Smoking Status Former smoker, quit more than 30 days ago entered on: 05/23/20 Sex
--- OUTSIDE RECORDS SUMMARY | 2023-10-28 16:07 | XMS_ITS | Continuity of Care Document ---
Author Organization [facility] Address [address] [place] [address]- Care Team Providers Care Filament Shaper Name Role Phone Jaya JORDAN, Carmela Sanchez Primary Care Physician Encounter [facility] [place] Date(s): 06/20/20 - 07/20/20 [facility] [address] [place] [address] Attending Physician: AdmTiffanie varghese Admitting Physician: Admtr, Ar8 Referring Physician: Admtr, Ar8 Allergies, Adverse Reactions, [...] Maintenance, 07/17/20 13:21:00 EDT, CR [place] [facility], Partial fill upon patient request if the prescription is for a scheduleII opioid drug. ACOG preE prophylaxis, 160.02, cm,... Start Date: 07/17/20 Stop Date: 01/13/21 Status: Ordered Freestyle Lite Test Strips See Instructions, # 1 pack/packet, Refills 5, Tot. Refills 5, Maintenance, To test BS 4 -6 x day Gestationa; diabetes 2APL=834 test strips, 06/26/20 17:16:00 EST, Supply, 160.02, cm, 06/13/20 14:32:00 EST, Height Start Date: 06/26/20 Status: Ordered Humalog Kwik Pen 100 units/mL subcutaneous injection See Instructions, 22 ux with breakfast 20 ux with lunch 24 ux with dinner, # 15 mL, 5 Refills, Maintenance, 07/16/20 16:27:00 EDT, [facility], Partial fill upon patient request if the prescription is for a schedule II opioid drug., 160.02,... Start Date: 07/16/20 Status: Ordered Lantus Solostar Pen 100 units/mL subcutaneous solution = 56 units, Subcutaneous Injection, Daily at bedtime, # 15 mL, 6 Refills, Maintenance, 07/16/20 16:27:00 EDT, [facility], Partial fill upon patient request if the prescription is for a schedule II opioid drug., 160.02, cm, 06/13/20 14:32:00 E... Start Date: 07/16/20 Status: Ordered Pen [place], 31 G x 5 mm BD Ultra [...] Refills, Maintenance, 07/17/20 13:36:00 EDT, Aerosol, [facility], Partial fill upon patient request [...] diabetes managed by her PCP located at [address] [place] [address]/currently on Metformin 500mg BID. MFM consult for glucose control placed. 2BHN consult placed Social History Social History Type Response Smoking Status Former smoker, quit more than 30 days ago entered on: 05/23/20 Sex
--- OUTSIDE RECORDS SUMMARY | 2023-10-28 16:07 | XMS_ITS | Continuity of Care Document ---
Author Organization [facility] Address [address] [place] [address]- Care Team Providers Care Tonal Regulator Name Role Phone Jaya JORDAN, Carmela Sanchez Primary Care Physician [place] [facility] [place] - 09/01/[address] [address]- Allergies, Adverse Reactions, Alerts Substance Reaction Severity [...] Maintenance, 07/17/20 13:21:00 EDT, CR [facility], [id number], Partial fill upon patient request if the prescription is for a scheduleII opioid drug. ACOG preE prophylaxis, 160.02, cm,... Start Date: 07/17/20 Stop Date: 01/13/21 Status: Ordered Freestyle Lite Test Strips See Instructions, # 1 pack/packet, Refills 5, Tot. Refills 5, Maintenance, To test BS 4 -6 x day Gestationa; diabetes 7PFF=258 test strips, 06/26/20 17:16:00 EST, Supply, 160.02, cm, 06/13/20 14:32:00 EST, Height Start Date: 06/26/20 Status: Ordered Humalog Kwik Pen 100 units/mL subcutaneous injection See Instructions, 34 ux with breakfast 30 ux with lunch 46 ux with dinner, # 15 mL, 5 Refills, Maintenance, 07/16/20 16:27:00 EDT, [facility], Partial fill upon patient request if the prescription is for a schedule II opioid drug., 160.02,... Start Date: 07/16/20 Status: Ordered Lantus Solostar Pen 100 units/mL subcutaneous solution = 80 units, Subcutaneous Injection, Daily at bedtime, # 15 mL, 6 Refills, Maintenance, 07/16/20 16:27:00 EDT, [facility], Partial fill upon patient request if the prescription is for a schedule II opioid drug., 160.02, cm, 06/13/20 14:32:00 E... Start Date: 07/16/20 Status: Ordered Pen [place], 31 G x 5 mm BD Ultra [...] Refills, Maintenance, 07/17/20 13:36:00 EDT, Aerosol, [facility], Partial fill upon patient request [...] diabetes managed by her PCP located at [address] [place] [address]/currently on Metformin 500mg BID. MFM consult for glucose control placed. 2BHN consult placed Social History Social History Type Response Smoking Status Former smoker, quit more than 30 days ago entered on: 05/23/20 Sex
--- OUTSIDE RECORDS SUMMARY | 2023-10-28 16:07 | XMS_ITS | Continuity of Care Document ---
Author Organization [facility] Address [address] [place] [address]- Care Team Providers Care Jig Mill Operator Name Role Phone Jaya JORDAN, Carmela Sanchez Primary Care Physician [phone] Encounter [facility] Date(s): 10/24/20 - 11/23/20 [facility] [address] [place] [id number] Allergies, Adverse Reactions, Alerts Substance [...] Maintenance, 07/17/20 13:21:00 EDT, CR Tablet, [facility], Partial fill upon patient request [...] BS 4 -6 x day Gestationa; diabetes 1YLQ=661 test strips, 06/26/20 17:16:00 EST, Supply, 160.02, cm, 06/13/20 14:32:00 EST, Height Start Date: 06/26/20 Status: Ordered Humalog Kwik Pen 100 units/mL subcutaneous injection See Instructions, 56 ux with breakfast 50 ux with lunch 72 ux with dinner, # 15 mL, 5 Refills, Maintenance, 10/22/20 9:50:00 EDT, [facility], Partial fill upon patient request if the prescription is for a schedule II opioid drug., 160.02, c... Start Date: 10/22/20 Status: Ordered Lantus Solostar Pen 100 units/mL subcutaneous solution 38 units in am and 94 units in pm, Subcutaneous Injection, Daily, # 30 mL, 6 Refills, Maintenance, 09/10/20 15:08:00 EDT, [facility], Partial fill upon patient request if the prescription isfor a schedule II opioid drug., 160.02, cm, 04/26/2... Start Date: 09/10/20 Status: Ordered Pen [place], 31 G x 5 mm BD Ultra [...] Refills, Maintenance, 07/17/20 13:36:00 EDT, Aerosol, [id number], Partial fill upon patient request [...] diabetes managed by her PCP located at [address] [place] [address]/currently on Metformin 500mg BID. MFM consult for glucose control placed. 2BHN consult placed Social History Social History Type Response Smoking Status Former smoker, quit more than 30 days ago entered on: 05/23/20 Sex
--- OUTSIDE RECORDS SUMMARY | 2023-10-28 16:07 | XMS_ITS | Continuity of Care Document ---
Author Organization [facility] Address [address] [place] [address]- Care Team Providers Care Guard Captain Name Role Phone Jaya JORDAN, Carmela Sanchez Primary Care Physician [place] [facility] [place] Date(s): 06/14/20 - 07/14/[address] [address]- Allergies, Adverse Reactions, Alerts Substance Reaction Severity [...] BS 4 -6 x day Gestationa; diabetes 9GXX=019 test strips, 06/26/20 17:16:00 EST, Supply, 160.02, cm, 06/13/20 14:32:00 EST, Height Start Date: 06/26/20 Status: Ordered Humalog Kwik Pen 100 units/mL subcutaneous injection See Instructions, 22 ux with breakfast 20 ux with lunch 24 ux with dinner, # 15 mL, 5 Refills, Maintenance, 06/20/20 17:24:00 EST, [id number], Partial fill upon patient request [...] ES... Start Date: 06/13/20 Status: Ordered Pen [place], 31 G x 5 mm BD Ultra [...] managed by her PCP located at [address] [place] [address]/currently on Metformin 500mg BID. MFM consult for glucose control placed. 2BHN consult placed Social History Social History Type Response Smoking Status Former smoker, quit more than 30 days ago entered on: 05/23/20 Sex
--- OUTSIDE RECORDS SUMMARY | 2023-10-28 16:07 | XMS_ITS | Continuity of Care Document ---
Author Organization [facility] ter Address [address] [place] [address]- Care Team Providers Care Medical Psychotherapist Name Role Phone Jaya JORDAN, Carmela D Primary Care Physician [phone] Encounter [facility] [place] Date(s): 05/23/20 - 06/24/[address] [address] Attending Physician: Rayna Poole MD Admitting Physician: [...] EST, Height Start Date: 06/13/20 Status: Ordered Humalog Kwik Pen 100 units/mL subcutaneous injection = 10 units, Subcutaneous Injection, 3 times a day before meals, # 15 mL, 5 Refills, Maintenance, 06/20/20 17:24:00 EST, [id number], Partial fill upon patient request if the prescription is for a schedule II opioid drug., 160.02, cm, 06/13/20... Start Date: 06/20/20 Status: Ordered Lantus Solostar Pen 100 units/mL subcutaneous solution = 38 units, Subcutaneous Injection, Daily at bedtime, # 15 mL, 6 Refills, Maintenance, 06/13/20 20:45:00 EST, [id number] Partial fill upon patient request if the prescription is for a schedule II opioid drug., 160.02, cm, 06/13/20 14:32:00 ES... Start Date: 06/13/20 Status: Ordered Pen [place], 31 G x 5 mm BD Ultra [...] diabetes managed by her PCP located at [address] [place] [address]/currently on Metformin 500mg BID. MFM consult for glucose control placed. 2BHN consult placed Social History Social History Type Response Smoking Status Former smoker, quit more than 30 days ago entered on: 05/23/20 Sex
--- OUTSIDE RECORDS SUMMARY | 2023-10-28 16:07 | XMS_ITS | Continuity of Care Document ---
Author Organization [facility] Address [address] [place] [address]- Care Team Providers Care Rigging And Controls Aircraft Mechanic Name Role Phone Jaya JORDAN, Carmela Sanchez Primary Care Physician Encounter [facility] Date(s): 11/28/20 - 12/28/[address] [address]- Allergies, Adverse Reactions, Alerts Substance Reaction Severity [...] Maintenance, 07/17/20 13:21:00 EDT, CR Tablet, [facility], Partial fill upon patient request if the prescription is for a scheduleII opioid drug. ACOG preE prophylaxis, 160.02, cm,... Start Date: 07/17/20 Stop Date: 01/13/21 Status: Ordered famotidine 10 mg oral tablet 1 tablet = 10 mg, By Mouth, 2 times a day, # 28 tablet, 0 Refills, Maintenance, 12/06/20 7:57:00 EDT, Tablet, [facility], Partial fill upon patient request if the prescription is for a schedule II opioid drug., 160, cm, 12/06/20 1:25:00 EDT,... Start Date: 12/06/20 Status: Ordered Flovent HFA 44 mcg/inh inhalation aerosol 2 puffs, Inhalation, 2 times a day, # 11 Gm, 0 Refills, Maintenance, 11/30/20 12:50:00 EDT, [facility]erosol, [facility], Partial fill upon patient request [...] BS 4 -6 x day Gestationa; diabetes 2PJW=953 test strips, 06/26/20 17:16:00 EST, Supply, 160.02, cm, 06/13/20 14:32:00 EST, Height Start Date: 06/26/20 Status: Ordered Humalog Kwik Pen 100 units/mL subcutaneous injection See Instructions, 60 ux with breakfast 54 ux with lunch 78 ux with dinner, # 15 mL, 5 Refills, Maintenance, 10/22/20 9:50:00 EDT, [facility], Partial fill upon patient request if the prescription is for a schedule II opioid drug., 160.02, c... Start Date: 10/22/20 Status: Ordered ibuprofen 600 mg oral tablet 600 mg, 1, tablet, By Mouth, 4 times a day, # 40 tablet, Refills 0, Tot. Refills 0, Maintenance, 12/06/20 7:58:00 EDT, Route to Pharmacy Electronically, [facility], Partial fill upon patientrequest if the prescription is for a schedule II op... Start Date: 12/06/20 Status: Ordered insulin lispro 100 u/ml subcutaneous injection = 8 units, Subcutaneous Infusion, 3 times a day before meals, Sliding scale 8 units for preprandial<150, 2 units additional for every 50 above 150., # 15 mL, 0 Refills, Maintenance, 12/06/20 8:13:00 EDT, [facility], Partial fill upon patien... Start Date: 12/06/20 Status: Ordered Lantus 100 u/ml subcutaneous solution = 30 units, Subcutaneous Injection, Daily, # 12 mL, 0 Refills, Maintenance, 12/06/20 8:11:00 EDT, Solution, [id number], Partial fill upon patient request if the prescription is for a schedule II opioid drug., 160, cm, 12/06/20 1:25:00 EDT, He... Start Date: 12/06/20 Status: Ordered Lantus Solostar Pen 100 units/mL subcutaneous solution 44 units in am and 100 units in pm, Subcutaneous Injection, Daily, # 12 mL, 6 Refills, Maintenance,09/10/20 15:08:00 EDT, [facility], Partial fill upon patient request if the prescription is for a schedule II opioid drug., 160.02, cm, ... Start Date: 09/10/20 Status: Ordered MiraLax oral powder for reconstitution = 17 Gm, By Mouth, Daily, dissolve in water before taking, # 255 Gm, 0 Refills, Maintenance, 12/06/20 7:57:00 EDT, REC Powder, [facility], Partial fill upon patient request if the prescription is for a schedule II opioid drug., 17 Gm By Mouth... Start Date: 12/06/20 Status: Ordered Pen [place], 31 G x 5 mm BD Ultra [...] 7:57:00 EDT, Route to Pharmacy Electronically, [facility], Partial fill upon patient request if the prescription is for a... Start Date: 12/06/20 Status: Ordered Ventolin HFA 108 mcg/inh inhalation aerosol with adapter 1 puffs, Inhalation, 4 times a day, PRN for wheezing, # 18 Gm, 0 Refills, Maintenance, 07/17/20 13:36:00 EDT, Aerosol, [facility], Partial fill upon patient request [...] diabetes managed by her PCP located at [address] [place] [address]/currently on Metformin 500mg BID. MFM consult for glucose control placed. 2BHN consult placed Social History Social History Type Response Smoking Status Former smoker, quit more than 30 days ago entered on: 05/23/20 Sex
--- OUTSIDE RECORDS SUMMARY | 2023-10-28 16:07 | XMS_ITS | Continuity of Care Document ---
Author Organization [facility] ter Address [address] [place] [address]- Care Team Providers Care Roofer Applicator Name Role Phone Jaya JORDAN, Carmela Laura Primary Care Physician [phone] Encounter [facility] [place] Date(s): 11/19/20 - 11/19/[address] [address]charge Disposition: [facility]-D/C Home Attending Physician: Arabella Duffy DO Admitting Physician: [...] Maintenance, 07/17/20 13:21:00 EDT, CR Tablet, [facility], Partial fill upon patient request [...] BS 4 -6 x day Gestationa; diabetes 8ZCR=339 test strips, 06/26/20 17:16:00 EST, Supply, 160.02, cm, 06/13/20 14:32:00 EST, Height Start Date: 06/26/20 Status: Ordered Humalog Kwik Pen 100 units/mL subcutaneous injection See Instructions, 56 ux with breakfast 50 ux with lunch 72 ux with dinner, # 15 mL, 5 Refills, Maintenance, 10/22/20 9:50:00 EDT, [facility], Partial fill upon patient request if the prescription is for a schedule II opioid drug., 160.02, c... Start Date: 10/22/20 Status: Ordered Lantus Solostar Pen 100 units/mL subcutaneous solution 38 units in am and 94 units in pm, Subcutaneous Injection, Daily, # 30 mL, 6 Refills, Maintenance, 09/10/20 15:08:00 EDT, [facility], Partial fill upon patient request if the prescription isfor a schedule II opioid drug., 160.02, cm, ... Start Date: 09/10/20 Status: Ordered Pen [place], 31 G x 5 mm BD Ultra [...] Refills, Maintenance, 07/17/20 13:36:00 EDT, [facility]eros[facility], [facility], Partial fill upon patient request [...] managed by her PCP located at [address] [place] [address]/currently on Metformin 500mg BID. MFM consult for glucose control placed. 2BHN consult placed Social History Social History Type Response Smoking Status Former smoker, quit more than 30 days ago entered on: 05/23/20 Sex
--- OUTSIDE RECORDS SUMMARY | 2023-10-28 16:07 | XMS_ITS | Continuity of Care Document ---
Author Organization [facility] Address [address] [place] [address]- Care Team Providers Care Crown Pouncer Name Role Phone Jaya JORDAN, Carmela Sanchez Primary Care Physician [phone] Encounter [facility] [place] Date(s): 06/25/20 - 07/25/20 [facility] [address] [place] [id number] Allergies, Adverse Reactions, Alerts Substance Reaction Severity [...] Maintenance, 07/17/20 13:21:00 EDT, CR [place]t, [facility], Partial fill upon patient request if the prescription is for a scheduleII opioid drug. ACOG preE prophylaxis, 160.02, cm,... Start Date: 07/17/20 Stop Date: 01/13/21 Status: Ordered Freestyle Lite Test Strips See Instructions, # 1 pack/packet, Refills 5, Tot. Refills 5, Maintenance, To test BS 4 -6 x day Gestationa; diabetes 0UKL=541 test strips, 06/26/20 17:16:00 EST, Supply, 160.02, cm, 06/13/20 14:32:00 EST, Height Start Date: 06/26/20 Status: Ordered Humalog Kwik Pen 100 units/mL subcutaneous injection See Instructions, 22 ux with breakfast 20 ux with lunch 24 ux with dinner, # 15 mL, 5 Refills, Maintenance, 07/16/20 16:27:00 EDT, [facility], Partial fill upon patient request if the prescription is for a schedule II opioid drug., 160.02,... Start Date: 07/16/20 Status: Ordered Lantus Solostar Pen 100 units/mL subcutaneous solution = 56 units, Subcutaneous Injection, Daily at bedtime, # 15 mL, 6 Refills, Maintenance, 07/16/20 16:27:00 EDT, [facility], Partial fill upon patient request if the prescription is for a schedule II opioid drug., 160.02, cm, 06/13/20 14:32:00 E... Start Date: 07/16/20 Status: Ordered Pen [place], 31 G x 5 mm BD Ultra [...] Refills, Maintenance, 07/17/20 13:36:00 EDT, Aerosol, [facility], Partial fill upon patient request [...] diabetes managed by her PCP located at [address] [place] [address]/currently on Metformin 500mg BID. MFM consult for glucose control placed. 2BHN consult placed Social History Social History Type Response Smoking Status Former smoker, quit more than 30 days ago entered on: 05/23/20 Sex
--- OUTSIDE RECORDS SUMMARY | 2023-10-28 16:07 | XMS_ITS | Continuity of Care Document ---
Author Organization [facility] Address [address] [place] [address]- Care Team Providers Care Log Haul Chain Feeder Name Role Phone Jaya JORDAN, Carmela D Primary Care Physician Encounter [facility] Date(s): 08/16/20 - 09/15/20 [facility] [address] [place] [id number] Allergies, Adverse Reactions, Alerts Substance Reaction Severity [...] Maintenance, 07/17/20 13:21:00 EDT, CR Tablet, [facility], Partial fill upon patient request if the prescription is for a scheduleII opioid drug. ACOG preE prophylaxis, 160.02, cm,... Start Date: 07/17/20 Stop Date: 01/13/21 Status: Ordered Freestyle Lite Test Strips See Instructions, # 1 pack/packet, Refills 5, Tot. Refills 5, Maintenance, To test BS 4 -6 x day Gestationa; diabetes 8JFS=215 test strips, 06/26/20 17:16:00 EST, Supply, 160.02, cm, 06/13/20 14:32:00 EST, Height Start Date: 06/26/20 Status: Ordered Humalog Kwik Pen 100 units/mL subcutaneous injection See Instructions, 38 ux with breakfast 30 ux with lunch 50 ux with dinner, # 15 mL, 5 Refills, Maintenance, 09/10/20 15:09:00 EDT, [facility], Partial fill upon patient request if the prescription is for a schedule II opioid drug., 160.02,... Start Date: 09/10/20 Status: Ordered Lantus Solostar Pen 100 units/mL subcutaneous solution = 86 units, Subcutaneous Injection, Daily at bedtime, # 15 mL, 6 Refills, Maintenance, 09/10/20 15:08:00 EDT, [facility], Partial fill upon patient request if the prescription is for a schedule II opioid drug., 160.02, cm, 08/13/20 8:50:00 ED... Start Date: 09/10/20 Status: Ordered Pen [place], 31 G x 5 mm BD Ultra [...] Refills, Maintenance, 07/17/20 13:36:00 EDT, Aerosol, [facility], Partial fill upon patient request [...] managed by her PCP located at [address] [place] [address]/currently on Metformin 500mg BID. MFM consult for glucose control placed. 2BHN consult placed Social History Social History Type Response Smoking Status Former smoker, quit more than 30 days ago entered on: 05/23/20 Sex
--- OUTSIDE RECORDS SUMMARY | 2023-10-28 16:07 | XMS_ITS | Continuity of Care Document ---
Author Organization [facility] ter Address [address] [place] [address]- Care Team Providers Care Mixing Machine Operator Name Role Phone Jaya JORDAN, Carmela Sanchez Primary Care Physician [place] [facility] [place]s): 10/09/20 - 11/14/[address] [address] Attending Physician: Arabella Duffy DO Admitting [...] Maintenance, 07/17/20 13:21:00 EDT, CR Tablet, [facility], Partial fill upon patient request [...] BS 4 -6 x day Gestationa; diabetes 6CEH=841 test strips, 06/26/20 17:16:00 EST, Supply, 160.02, cm, 06/13/20 14:32:00 EST, Height Start Date: 06/26/20 Status: Ordered Humalog Kwik Pen 100 units/mL subcutaneous injection See Instructions, 52 ux with breakfast 46 ux with lunch 68 ux with dinner, # 15 mL, 5 Refills, Maintenance, 10/22/20 9:50:00 EDT, [facility], Partial fill upon patient request if the prescription is for a schedule II opioid drug., 160.02, c... Start Date: 10/22/20 Status: Ordered Lantus Solostar Pen 100 units/mL subcutaneous solution 32 units in am and 90 units in pm, Subcutaneous Injection, Daily, # 12 mL, 6 Refills, Maintenance, 09/10/20 15:08:00 EDT, [facility], Partial fill upon patient request if the prescription isfor a schedule II opioid drug., 160.02, cm, ... Start Date: 09/10/20 Status: Ordered Pen [place], 31 G x 5 mm BD Ultra [...] Refills, Maintenance, 07/17/20 13:36:00 EDT, Aerosol, [facility], Partial fill upon patient request [...] diabetes managed by her PCP located at [address] [place] [address]/currently on Metformin 500mg BID. MFM consult for glucose control placed. 2BHN consult placed Social History Social History Type Response Smoking Status Former smoker, quit more than 30 days ago entered on: 05/23/20 Sex
--- OUTSIDE RECORDS SUMMARY | 2023-10-28 16:07 | XMS_ITS | Continuity of Care Document ---
Author Organization [facility] Address [address] [place] [address]- Care Team Providers Care Tamping Machine Operator Name Role Phone Jaya JORDAN, Carmela Sanchez Primary Care Physician [phone] Encounter [facility] [place] Date(s): 08/09/20 - 09/08/20 Maternal Medicine [address] [place] [id number] Allergies, Adverse [...] Maintenance, 07/17/20 13:21:00 EDT, [place], Partial fill upon patient request if the prescription is for a scheduleII opioid drug. ACOG preE prophylaxis, 160.02, cm,... Start Date: 07/17/20 Stop Date: 01/13/21 Status: Ordered Freestyle Lite Test Strips See Instructions, # 1 pack/packet, Refills 5, Tot. Refills 5, Maintenance, To test BS 4 -6 x day Gestationa; diabetes 3XBY=519 test strips, 06/26/20 17:16:00 EST, Supply, 160.02, cm, 06/13/20 14:32:00 EST, Height Start Date: 06/26/20 Status: Ordered Humalog Kwik Pen 100 units/mL subcutaneous injection See Instructions, 38 ux with breakfast 30 ux with lunch 50 ux with dinner, # 15 mL, 5 Refills, Maintenance, 07/16/20 16:27:00 EDT, [facility], Partial fill upon patient request if the prescription is for a schedule II opioid drug., 160.02,... Start Date: 07/16/20 Status: Ordered Lantus Solostar Pen 100 units/mL subcutaneous solution = 86 units, Subcutaneous Injection, Daily at bedtime, # 15 mL, 6 Refills, Maintenance, 07/16/20 16:27:00 EDT, [facility], Partial fill upon patient request if the prescription is for a schedule II opioid drug., 160.02, cm, 06/13/20 14:32:00 E... Start Date: 07/16/20 Status: Ordered Pen [place], 31 G x 5 mm BD Ultra [...] Refills, Maintenance, 07/17/20 13:36:00 EDT, Aerosol, [facility], Partial fill upon patient request [...] managed by her PCP located at [address] [place] [address]/currently on Metformin 500mg BID. MFM consult for glucose control placed. 2BHN consult placed Social History Social History Type Response Smoking Status Former smoker, quit more than 30 days ago entered on: 05/23/20 Sex
--- OUTSIDE RECORDS SUMMARY | 2023-10-28 16:07 | XMS_ITS | Continuity of Care Document ---
Author Organization [facility] Address [address] [place] [address]- Care Team Providers Care Patient Scheduling Manager Name Role Phone Jaya JORDAN, Carmela Sanchez Primary Care Physician [place] [facility] [place]s): 07/24/20 - 08/23/20 [facility]aternal [facility] [address] [place] [id number] Allergies, Adverse Reactions, Alerts Substance Reaction [...] Maintenance, 07/17/20 13:21:00 EDT, [place] [facility], Partial fill upon patient request if the prescription is for a scheduleII opioid drug. ACOG preE prophylaxis, 160.02, cm,... Start Date: 07/17/20 Stop Date: 01/13/21 Status: Ordered Freestyle Lite Test Strips See Instructions, # 1 pack/packet, Refills 5, Tot. Refills 5, Maintenance, To test BS 4 -6 x day Gestationa; diabetes 9XAM=541 test strips, 06/26/20 17:16:00 EST, Supply, 160.02, cm, 06/13/20 14:32:00 EST, Height Start Date: 06/26/20 Status: Ordered Humalog Kwik Pen 100 units/mL subcutaneous injection See Instructions, 34 ux with breakfast 30 ux with lunch 46 ux with dinner, # 15 mL, 5 Refills, Maintenance, 07/16/20 16:27:00 EDT, [facility], Partial fill upon patient request if the prescription is for a schedule II opioid drug., 160.02,... Start Date: 07/16/20 Status: Ordered Lantus Solostar Pen 100 units/mL subcutaneous solution = 80 units, Subcutaneous Injection, Daily at bedtime, # 15 mL, 6 Refills, Maintenance, 07/16/20 16:27:00 EDT, [facility], Partial fill upon patient request if the prescription is for a schedule II opioid drug., 160.02, cm, 06/13/20 14:32:00 E... Start Date: 07/16/20 Status: Ordered Pen [place], 31 G x 5 mm BD Ultra [...] Refills, Maintenance, 07/17/20 13:36:00 EDT, [facility]erosol, [facility], Partial fill upon patient request [...] diabetes managed by her PCP located at [address] [place] [address]/currently on Metformin 500mg BID. MFM consult for glucose control placed. 2BHN consult placed Social History Social History Type Response Smoking Status Former smoker, quit more than 30 days ago entered on: 05/23/20 Sex
--- OUTSIDE RECORDS SUMMARY | 2023-10-28 16:08 | XMS_ITS | Continuity of Care Document ---
Author Organization [facility] Address [address] [place] [address]- Care Team Providers Care Product Consultant Name Role Phone Jaya JORDAN, Carmela D Primary Care Physician Encounter [facility] [place] Date(s): 11/23/20 - 12/23/20 [facility] [address] [place] [address] Allergies, Adverse Reactions, Alerts Substance Reaction Severity [...] Maintenance, 07/17/20 13:21:00 EDT, CR Tablet, [facility], Partial fill upon patient request if the prescription is for a scheduleII opioid drug. ACOG preE prophylaxis, 160.02, cm,... Start Date: 07/17/20 Stop Date: 01/13/21 Status: Ordered famotidine 10 mg oral tablet 1 tablet = 10 mg, By Mouth, 2 times a day, # 28 tablet, 0 Refills, Maintenance, 12/06/20 7:57:00 EDT, Tablet, [id number], Partial fill upon patient request if the prescription is for a schedule II opioid drug., 160, cm, 12/06/20 1:25:00 EDT,... Start Date: 12/06/20 Status: Ordered Flovent HFA 44 mcg/inh inhalation aerosol 2 puffs, Inhalation, 2 times a day, # 11 Gm, 0 Refills, Maintenance, 11/30/20 12:50:00 EDT, Aerosol, [facility], Partial fill upon patient request [...] BS 4 -6 x day Gestationa; diabetes 0ZPV=401 test strips, 06/26/20 17:16:00 EST, Supply, 160.02, cm, 06/13/20 14:32:00 EST, Height Start Date: 06/26/20 Status: Ordered Humalog Kwik Pen 100 units/mL subcutaneous injection See Instructions, 60 ux with breakfast 54 ux with lunch 78 ux with dinner, # 15 mL, 5 Refills, Maintenance, 10/22/20 9:50:00 EDT, [facility], Partial fill upon patient request if the prescription is for a schedule II opioid drug., 160.02, c... Start Date: 10/22/20 Status: Ordered ibuprofen 600 mg oral tablet 600 mg, 1, tablet, By Mouth, 4 times a day, # 40 tablet, Refills 0, Tot. Refills 0, Maintenance, 12/06/20 7:58:00 EDT, Route to Pharmacy Electronically, [id number], Partial fill upon patientrequest if the prescription is for a schedule II op... Start Date: 12/06/20 Status: Ordered insulin lispro 100 u/ml subcutaneous injection = 8 units, Subcutaneous Infusion, 3 times a day before meals, Sliding scale 8 units for preprandial<150, 2 units additional for every 50 above 150., # 15 mL, 0 Refills, Maintenance, 12/06/20 8:13:00 EDT, [facility], Partial fill upon patien... Start Date: 12/06/20 Status: Ordered Lantus 100 u/ml subcutaneous solution = 30 units, Subcutaneous Injection, Daily, # 12 mL, 0 Refills, Maintenance, 12/06/20 8:11:00 EDT, Solution, [facility], Partial fill upon patient request if the prescription is for a schedule II opioid drug., 160, cm, 12/06/20 1:25:00 EDT, He... Start Date: 12/06/20 Status: Ordered Lantus Solostar Pen 100 units/mL subcutaneous solution 44 units in am and 100 units in pm, Subcutaneous Injection, Daily, # 12 mL, 6 Refills, Maintenance,09/10/20 15:08:00 EDT, [facility], Partial fill upon patient request if the prescription is for a schedule II opioid drug., 160.02, cm, 08/13/... Start Date: 09/10/20 Status: Ordered MiraLax oral powder for reconstitution = 17 Gm, By Mouth, Daily, dissolve in water before taking, # 255 Gm, 0 Refills, Maintenance, 12/06/20 7:57:00 EDT, REC Powder, [facility], Partial fill upon patient request [...] 7:57:00 EDT, Route to Pharmacy Electronically, [facility], Partial fill upon patient request, 160,... Start Date: 12/06/20 Stop Date: 12/27/20 Status: Ordered Pen [place], 31 G x 5 mm BD Ultra [...] 7:57:00 EDT, Route to Pharmacy Electronically, [facility], Partial fill upon patient request if the prescription is for a... Start Date: 12/06/20 Status: Ordered Ventolin HFA 108 mcg/inh inhalation aerosol with adapter 1 puffs, Inhalation, 4 times a day, PRN for wheezing, # 18 Gm, 0 Refills, Maintenance, 07/17/20 13:36:00 EDT, Aerosol, [facility], Partial fill upon patient request [...] diabetes managed by her PCP located at [address] [place] [address]/currently on Metformin 500mg BID. MFM consult for glucose control placed. 2BHN consult placed Social History Social History Type Response Smoking Status Former smoker, quit more than 30 days ago entered on: 05/23/20 Sex
--- OUTSIDE RECORDS SUMMARY | 2023-10-28 16:08 | XMS_ITS | Continuity of Care Document ---
Author Organization [facility] Address [address] [place] [address]- Care Team Providers Care Director Of Intercollegiate Athletics Name Role Phone Jaya JORDAN, Carmela Sanchez Primary Care Physician Encounter [facility] [place] Date(s): 05/29/20 - 07/06/[address] [address]- Attending Physician: Not on Staff, Attending MD [...] BS 4 -6 x day Gestationa; diabetes 8JCE=928 test strips, 06/26/20 17:16:00 EST, Supply, 160.02, cm, 06/13/20 14:32:00 EST, Height Start Date: 06/26/20 Status: Ordered Humalog Kwik Pen 100 units/mL subcutaneous injection See Instructions, 18 ux with breakfast 20 ux with lunch 18 ux with dinner, # 15 mL, 5 Refills, Maintenance, 06/20/20 17:24:00 EST, [facility], Partial fill upon patient request if the prescription is for a schedule II opioid drug., 160.02,... Start Date: 06/20/20 Status: Ordered Lantus Solostar Pen 100 units/mL subcutaneous solution = 50 units, Subcutaneous Injection, Daily at bedtime, # 15 mL, 6 Refills, Maintenance, 06/13/20 20:45:00 EST, [id number], Partial fill upon patient request if the prescription is for a schedule II opioid drug., 160.02, cm, 06/13/20 14:32:00 ES... Start Date: 06/13/20 Status: Ordered Pen [place], 31 G x 5 mm BD Ultra [...] diabetes managed by her PCP located at [address] [place] [address]/currently on Metformin 500mg BID. MFM consult for glucose control placed. 2BHN consult placed Social History Social History Type Response Smoking Status Former smoker, quit more than 30 days ago entered on: 2/3/21 Sex
--- OUTSIDE RECORDS SUMMARY | 2023-10-28 16:08 | XMS_ITS | Continuity of Care Document ---
Author Organization [facility] Address [address] [place] [address]- Care Team Providers Care Cardiology Clinical Nurse Specialist Name Role Phone Jaya JORDAN, Carmela Sanchez Primary Care Physician [phone] Encounter [facility] Date(s): 10/05/20 - 11/04/[address] [address]- Allergies, Adverse Reactions, Alerts Substance Reaction Severity [...] Maintenance, 07/17/20 13:21:00 EDT, CR Tablet, [facility], Partial fill upon patient request if the prescription is for a scheduleII opioid drug. ACOG preE prophylaxis, 160.02, cm,... Start Date: 07/17/20 Stop Date: 01/13/21 Status: Ordered Freestyle Lite Test Strips See Instructions, # 1 pack/packet, Refills 5, Tot. Refills 5, Maintenance, To test BS 4 -6 x day Gestationa; diabetes 3OVF=771 test strips, 06/26/20 17:16:00 EST, Supply, 160.02, cm, 06/13/20 14:32:00 EST, Height Start Date: 06/26/20 Status: Ordered Humalog Kwik Pen 100 units/mL subcutaneous injection See Instructions, 52 ux with breakfast 46 ux with lunch 68 ux with dinner, # 15 mL, 5 Refills, Maintenance, 10/22/20 9:50:00 EDT, [facility], Partial fill upon patient request if the prescription is for a schedule II opioid drug., 160.02, c... Start Date: 10/22/20 Status: Ordered Lantus Solostar Pen 100 units/mL subcutaneous solution 32 units in am and 90 units in pm, Subcutaneous Injection, Daily, # 12 mL, 6 Refills, Maintenance, 09/10/20 15:08:00 EDT, [facility], Partial fill upon patient request if the prescription isfor a schedule II opioid drug., 160.02, cm, ... Start Date: 09/10/20 Status: Ordered Pen [place], 31 G x 5 mm BD Ultra [...] Refills, Maintenance, 07/17/20 13:36:00 EDT, Aerosol, [facility], Partial fill upon patient request [...] managed by her PCP located at [address] [place] [address]/currently on Metformin 500mg BID. MFM consult for glucose control placed. 2BHN consult placed Social History Social History Type Response Smoking Status Former smoker, quit more than 30 days ago entered on: 05/23/20 Sex
--- OUTSIDE RECORDS SUMMARY | 2023-10-28 16:08 | XMS_ITS | Continuity of Care Document ---
Author Organization [facility] Address [address] [place] [address]- Care Team Providers Care Compressor Operator Name Role Phone Jaya JORDAN, Carmela Sanchez Primary Care Physician [phone] Encounter [facility] [place] Date(s): 06/11/20 - 07/11/[address] [address]- Allergies, Adverse Reactions, Alerts Substance Reaction Severity [...] BS 4 -6 x day Gestationa; diabetes 5OKV=777 test strips, 06/26/20 17:16:00 EST, Supply, 160.02, cm, 06/13/20 14:32:00 EST, Height Start Date: 06/26/20 Status: Ordered Humalog Kwik Pen 100 units/mL subcutaneous injection See Instructions, 18 ux with breakfast 20 ux with lunch 18 ux with dinner, # 15 mL, 5 Refills, Maintenance, 06/20/20 17:24:00 EST, [facility], Partial fill upon patient request [...] ES... Start Date: 06/13/20 Status: Ordered Pen [place], 31 G x 5 mm BD Ultra [...] diabetes managed by her PCP located at [address] [place] [address]/currently on Metformin 500mg BID. MFM consult for glucose control placed. 2BHN consult placed Social History Social History Type Response Smoking Status Former smoker, quit more than 30 days ago entered on: 05/23/20 Sex
--- OUTSIDE RECORDS SUMMARY | 2023-10-28 16:08 | XMS_ITS | Continuity of Care Document ---
Author Organization [facility] Address [address] [place] [address]- Care Team Providers Care Abrasive Mixer Name Role Phone Jaya JORDAN, Carmela D Primary Care Physician Encounter [facility] [place] Date(s): 11/05/20 - 12/09/[address] [address]- Attending Physician: Not on Staff, Attending MD [...] Maintenance, 07/17/20 13:21:00 EDT, CR [facility]t, [facility], Partial fill upon patient request if the prescription is for a scheduleII opioid drug. ACOG preE prophylaxis, 160.02, cm,... Start Date: 07/17/20 Stop Date: 01/13/21 Status: Ordered famotidine 10 mg oral tablet 1 tablet = 10 mg, By Mouth, 2 times a day, # 28 tablet, 0 Refills, Maintenance, 12/06/20 7:57:00 EDT, Tablet, [facility], Partial fill upon patient request if the prescription is for a schedule II opioid drug., 160, cm, 12/06/20 1:25:00 EDT,... Start Date: 12/06/20 Status: Ordered Flovent HFA 44 mcg/inh inhalation aerosol 2 puffs, Inhalation, 2 times a day, # 11 Gm, 0 Refills, Maintenance, 11/30/20 12:50:00 EDT, Aerosol, [id number], Partial fill upon patient request [...] BS 4 -6 x day Gestationa; diabetes 4VVY=203 test strips, 06/26/20 17:16:00 EST, Supply, 160.02, cm, 06/13/20 14:32:00 EST, Height Start Date: 06/26/20 Status: Ordered Humalog Kwik Pen 100 units/mL subcutaneous injection See Instructions, 60 ux with breakfast 54 ux with lunch 78 ux with dinner, # 15 mL, 5 Refills, Maintenance, 10/22/20 9:50:00 EDT, [facility], Partial fill upon patient request if the prescription is for a schedule II opioid drug., 160.02, c... Start Date: 10/22/20 Status: Ordered ibuprofen 600 mg oral tablet 600 mg, 1, tablet, By Mouth, 4 times a day, # 40 tablet, Refills 0, Tot. Refills 0, Maintenance, 12/06/20 7:58:00 EDT, Route to Pharmacy Electronically, [id number], Partial fill upon patientrequest if the prescription is for a schedule II op... Start Date: 12/06/20 Status: Ordered insulin lispro 100 u/ml subcutaneous injection = 8 units, Subcutaneous Infusion, 3 times a day before meals, Sliding scale 8 units for preprandial<150, 2 units additional for every 50 above 150., # 15 mL, 0 Refills, Maintenance, 12/06/20 8:13:00 EDT, [facility], Partial fill upon patien... Start Date: 12/06/20 Status: Ordered Lantus 100 u/ml subcutaneous solution = 30 units, Subcutaneous Injection, Daily, # 12 mL, 0 Refills, Maintenance, 12/06/20 8:11:00 EDT, Solution, [facility], Partial fill upon patient request if the prescription is for a schedule II opioid drug., 160, cm, 12/06/20 1:25:00 EDT, He... Start Date: 12/06/20 Status: Ordered Lantus Solostar Pen 100 units/mL subcutaneous solution 44 units in am and 100 units in pm, Subcutaneous Injection, Daily, # 12 mL, 6 Refills, Maintenance,09/10/20 15:08:00 EDT, [facility], Partial fill upon patient request if the prescription is for a schedule II opioid drug., 160.02, cm, 08/13/... Start Date: 09/10/20 Status: Ordered MiraLax oral powder for reconstitution = 17 Gm, By Mouth, Daily, dissolve in water before taking, # 255 Gm, 0 Refills, Maintenance, 12/06/20 7:57:00 EDT, REC Powder, [facility], Partial fill upon patient request [...] 7:57:00 EDT, Route to Pharmacy Electronically, [facility], Partial fill upon patient request, 160,... Start Date: 12/06/20 Stop Date: 12/27/20 Status: Ordered Pen [place], 31 G x [...] 7:57:00 EDT, 12/06/20 7:57:00 EDT, Tablet, [facility], Partial fill upon patient request if the prescription is for a schedule... Start Date: 12/06/20 Stop Date: 12/22/20 Status: Ordered Tylenol 325 mg oral tablet 650 mg, 2, tablet, By Mouth, Every 4 hours, PRN, # 40 tablet, Refills 0, Tot. Refills 0, Maintenance, for pain, 12/06/20 7:57:00 EDT, Route to Pharm[facility] Electronically, [facility], Partial fill upon patient request if the prescription is for a... Start Date: 12/06/20 Status: Ordered Ventolin HFA 108 mcg/inh inhalation aerosol with adapter 1 puffs, Inhalation, 4 times a day, PRN for wheezing, # 18 Gm, 0 Refills, Maintenance, 07/17/20 13:36:00 EDT, [facility]erosol, [facility], Partial fill upon patient request [...] managed by her PCP located at [address] [place] [address]/currently on Metformin 500mg BID. MFM consult for glucose control placed. 2BHN consult placed Social History Social History Type Response Smoking Status Former smoker, quit more than 30 days ago entered on: 05/23/20 Sex
--- OUTSIDE RECORDS SUMMARY | 2023-10-28 16:08 | XMS_ITS | Continuity of Care Document ---
Author Organization [facility] Address [address] [place] [address]- Care Team Providers Care Rug Dyer Name Role Phone Jaya JORDAN, Carmela D Primary Care Physician [place] [facility] [place] 10/04/[place] - 01/12/[address] [address]- Attending Physician: Not on Staff, Attending MD [...] Maintenance, 07/17/20 13:21:00 EDT, CR [facility]t, [facility], Partial fill upon patient request if the prescription is for a scheduleII opioid drug. ACOG preE prophylaxis, 160.02, cm,... Start Date: 07/17/20 Stop Date: 01/13/21 Status: Ordered famotidine 10 mg oral tablet 1 tablet = 10 mg, By Mouth, 2 times a day, # 28 tablet, 0 Refills, Maintenance, 12/06/20 7:57:00 EDT, Tablet, [facility], Partial fill upon patient request if the prescription is for a schedule II opioid drug., 160, cm, 12/06/20 1:25:00 EDT,... Start Date: 12/06/20 Status: Ordered Flovent HFA 44 mcg/inh inhalation aerosol 2 puffs, Inhalation, 2 times a day, # 11 Gm, 0 Refills, Maintenance, 11/30/20 12:50:00 EDT, [facility]erosol, [facility], Partial fill upon patient request [...] BS 4 -6 x day Gestationa; diabetes 9VUO=163 test strips, 06/26/20 17:16:00 EST, Supply, 160.02, cm, 06/13/20 14:32:00 EST, Height Start Date: 06/26/20 Status: Ordered Humalog Kwik Pen 100 units/mL subcutaneous injection See Instructions, 60 ux with breakfast 54 ux with lunch 78 ux with dinner, # 15 mL, 5 Refills, Maintenance, 10/22/20 9:50:00 EDT, [facility], Partial fill upon patient request if the prescription is for a schedule II opioid drug., 160.02, c... Start Date: 10/22/20 Status: Ordered ibuprofen 600 mg oral tablet 600 mg, 1, tablet, By Mouth, 4 times a day, # 40 tablet, Refills 0, Tot. Refills 0, Maintenance, 12/06/20 7:58:00 EDT, Route to Pharm[facility] Electronically, [facility], Partial fill upon patientrequest if the prescription is for a schedule II op... Start Date: 12/06/20 Status: Ordered insulin lispro 100 u/ml subcutaneous injection = 8 units, Subcutaneous Infusion, 3 times a day before meals, Sliding scale 8 units for preprandial<150, 2 units additional for every 50 above 150., # 15 mL, 0 Refills, Maintenance, 12/06/20 8:13:00 EDT, [facility], Partial fill upon patien... Start Date: 12/06/20 Status: Ordered Lantus 100 u/ml subcutaneous solution = 30 units, Subcutaneous Injection, Daily, # 12 mL, 0 Refills, Maintenance, 12/06/20 8:11:00 EDT, Solution, [facility], Partial fill upon patient request if the prescription is for a schedule II opioid drug., 160, cm, 12/06/20 1:25:00 EDT, He... Start Date: 12/06/20 Status: Ordered Lantus Solostar Pen 100 units/mL subcutaneous solution 44 units in am and 100 units in pm, Subcutaneous Injection, Daily, # 12 mL, 6 Refills, Maintenance,09/10/20 15:08:00 EDT, [facility], Partial fill upon patient request if the prescription is for a schedule II opioid drug., 160.02, cm, ... Start Date: 09/10/20 Status: Ordered MiraLax oral powder for reconstitution = 17 Gm, By Mouth, Daily, dissolve in water before taking, # 255 Gm, 0 Refills, Maintenance, 12/06/20 7:57:00 EDT, REC Powder, [facility], Partial fill upon patient request if the prescription is for a schedule II opioid drug., 17 Gm By Mouth... Start Date: 12/06/20 Status: Ordered Pen [place], 31 G x 5 mm BD Ultra [...] 7:57:00 EDT, Route to Pharmacy Electronically, [facility], Partial fill upon patient request if the prescription is for a... Start Date: 12/06/20 Status: Ordered Ventolin HFA 108 mcg/inh inhalation aerosol with adapter 1 puffs, Inhalation, 4 times a day, PRN for wheezing, # 18 Gm, 0 Refills, Maintenance, 07/17/20 13:36:00 EDT, Aerosol, [facility], Partial fill upon patient request [...] diabetes managed by her PCP located at [address] [place] [address]/currently on Metformin 500mg BID. MFM consult for glucose control placed. 2BHN consult placed Social History Social History Type Response Smoking Status Former smoker, quit more than 30 days ago entered on: 05/23/20 Sex
--- OUTSIDE RECORDS SUMMARY | 2023-10-28 16:08 | XMS_ITS | Continuity of Care Document ---
Author Organization [facility] Address [address] [place] [address]- Care Team Providers Care Narrow Gauge Brakeman Name Role Phone Jaya JORDAN, Carmela Laura Primary Care Physician Encounter [facility] [place] Date(s): 07/31/20 - 08/30/20 [facility] [address] [place] [email or web address] Allergies, Adverse Reactions, [...] Maintenance, 07/17/20 13:21:00 EDT, CR [place]t, [facility], Partial fill upon patient request if the prescription is for a scheduleII opioid drug. ACOG preE prophylaxis, 160.02, cm,... Start Date: 07/17/20 Stop Date: 01/13/21 Status: Ordered Freestyle Lite Test Strips See Instructions, # 1 pack/packet, Refills 5, Tot. Refills 5, Maintenance, To test BS 4 -6 x day Gestationa; diabetes 7RRZ=666 test strips, 06/26/20 17:16:00 EST, Supply, 160.02, cm, 06/13/20 14:32:00 EST, Height Start Date: 06/26/20 Status: Ordered Humalog Kwik Pen 100 units/mL subcutaneous injection See Instructions, 34 ux with breakfast 30 ux with lunch 46 ux with dinner, # 15 mL, 5 Refills, Maintenance, 07/16/20 16:27:00 EDT, [facility], Partial fill upon patient request if the prescription is for a schedule II opioid drug., 160.02,... Start Date: 07/16/20 Status: Ordered Lantus Solostar Pen 100 units/mL subcutaneous solution = 80 units, Subcutaneous Injection, Daily at bedtime, # 15 mL, 6 Refills, Maintenance, 07/16/20 16:27:00 EDT, [facility], Partial fill upon patient request if the prescription is for a schedule II opioid drug., 160.02, cm, 06/13/20 14:32:00 E... Start Date: 07/16/20 Status: Ordered Pen [place], 31 G x 5 mm BD Ultra [...] Refills, Maintenance, 07/17/20 13:36:00 EDT, Aerosol, [facility], Partial fill upon patient request [...] managed by her PCP located at [address] [place] [address]/currently on Metformin 500mg BID. MFM consult for glucose control placed. 2BHN consult placed Social History Social History Type Response Smoking Status Former smoker, quit more than 30 days ago entered on: 05/23/20 Sex
--- OUTSIDE RECORDS SUMMARY | 2023-10-28 16:08 | XMS_ITS | Continuity of Care Document ---
Author Organization [facility] Address [address] [place] [address]- Care Team Providers Care Ready To Wear Department Manager Name Role Phone Jaya JORDAN, Carmela D Primary Care Physician Encounter [facility] [place] Date(s): 11/15/20 - 12/15/20 [facility] [address] [place] [id number] Attending Physician: Tiffanie Collins Admitting Physician: AdmtrTiffanie Referring Physician: Admtr, ArMax Allergies, Adverse Reactions, Alerts Substance Reaction Severity [...] Maintenance, 07/17/20 13:21:00 EDT, CR Tablet, [facility], Partial fill upon patient request if the prescription is for a scheduleII opioid drug. ACOG preE prophylaxis, 160.02, cm,... Start Date: 07/17/20 Stop Date: 01/13/21 Status: Ordered famotidine 10 mg oral tablet 1 tablet = 10 mg, By Mouth, 2 times a day, # 28 tablet, 0 Refills, Maintenance, 12/06/20 7:57:00 EDT, Tablet, [facility], Partial fill upon patient request if the prescription is for a schedule II opioid drug., 160, cm, 12/06/20 1:25:00 EDT,... Start Date: 12/06/20 Status: Ordered Flovent HFA 44 mcg/inh inhalation aerosol 2 puffs, Inhalation, 2 times a day, # 11 Gm, 0 Refills, Maintenance, 11/30/20 12:50:00 EDT, Aerosol, [facility], Partial fill upon patient request [...] BS 4 -6 x day Gestationa; diabetes 7FSY=532 test strips, 06/26/20 17:16:00 EST, Supply, 160.02, cm, 06/13/20 14:32:00 EST, Height Start Date: 06/26/20 Status: Ordered Humalog Kwik Pen 100 units/mL subcutaneous injection See Instructions, 60 ux with breakfast 54 ux with lunch 78 ux with dinner, # 15 mL, 5 Refills, Maintenance, 10/22/20 9:50:00 EDT, [facility], Partial fill upon patient request if the prescription is for a schedule II opioid drug., 160.02, c... Start Date: 10/22/20 Status: Ordered ibuprofen 600 mg oral tablet 600 mg, 1, tablet, By Mouth, 4 times a day, # 40 tablet, Refills 0, Tot. Refills 0, Maintenance, 12/06/20 7:58:00 EDT, Route to Pharmacy Electronically, [facility], Partial fill upon patientrequest if the prescription is for a schedule II op... Start Date: 12/06/20 Status: Ordered insulin lispro 100 u/ml subcutaneous injection = 8 units, Subcutaneous Infusion, 3 times a day before meals, Sliding scale 8 units for preprandial<150, 2 units additional for every 50 above 150., # 15 mL, 0 Refills, Maintenance, 12/06/20 8:13:00 EDT, [facility], Partial fill upon patien... Start Date: 12/06/20 Status: Ordered Lantus 100 u/ml subcutaneous solution = 30 units, Subcutaneous Injection, Daily, # 12 mL, 0 Refills, Maintenance, 12/06/20 8:11:00 EDT, Solution, [facility], Partial fill upon patient request if the prescription is for a schedule II opioid drug., 160, cm, 12/06/20 1:25:00 EDT, He... Start Date: 12/06/20 Status: Ordered Lantus Solostar Pen 100 units/mL subcutaneous solution 44 units in am and 100 units in pm, Subcutaneous Injection, Daily, # 12 mL, 6 Refills, Maintenance,09/10/20 15:08:00 EDT, [facility], Partial fill upon patient request if the prescription is for a schedule II opioid drug., 160.02, cm, 08/13/... Start Date: 09/10/20 Status: Ordered MiraLax oral powder for reconstitution = 17 Gm, By Mouth, Daily, dissolve in water before taking, # 255 Gm, 0 Refills, Maintenance, 12/06/20 7:57:00 EDT, REC Powder, [facility], Partial fill upon patient request [...] 7:57:00 EDT, Route to Pharmacy Electronically, [facility], Partial fill upon patient request, 160,... Start Date: 12/06/20 Stop Date: 12/27/20 Status: Ordered Pen [place], 31 G x 5 mm BD Ultra [...] 7:57:00 EDT, 12/06/20 7:57:00 EDT, Tablet, [facility], Partial fill upon patient request if the prescription is for a schedule... Start Date: 12/06/20 Stop Date: 12/22/20 Status: Ordered Tylenol 325 mg oral tablet 650 mg, 2, tablet, By Mouth, Every 4 hours, PRN, # 40 tablet, Refills 0, Tot. Refills 0, Maintenance, for pain, 12/06/20 7:57:00 EDT, Route to Pharm[facility] Electronically, [id number], Partial fill upon patient request if the prescription is for a... Start Date: 12/06/20 Status: Ordered Ventolin HFA 108 mcg/inh inhalation aerosol with adapter 1 puffs, Inhalation, 4 times a day, PRN for wheezing, # 18 Gm, 0 Refills, Maintenance, 07/17/20 13:36:00 EDT, [facility]erosol, [facility], Partial fill upon patient request [...] diabetes managed by her PCP located at [address] [place] [address]/currently on Metformin 500mg BID. MFM consult for glucose control placed. 2BHN consult placed Social History Social History Type Response Smoking Status Former smoker, quit more than 30 days ago entered on: 05/23/20 Sex
--- OUTSIDE RECORDS SUMMARY | 2023-10-28 16:08 | XMS_ITS | Continuity of Care Document ---
Author Organization [facility] Address [address] [place] [address]- Care Team Providers Care Ios Developer Name Role Phone Jaya JORDAN, Carmela Sanchez Primary Care Physician [phone] Encounter [facility] [place] Date(s): 08/13/20 - 10/10/[address] [address]- Attending Physician: Not on Staff, Attending MD [...] Maintenance, 07/17/20 13:21:00 EDT, CR Tablet, [facility], Partial fill upon patient request if the prescription is for a scheduleII opioid drug. ACOG preE prophylaxis, 160.02, cm,... Start Date: 07/17/20 Stop Date: 01/13/21 Status: Ordered Freestyle Lite Test Strips See Instructions, # 1 pack/packet, Refills 5, Tot. Refills 5, Maintenance, To test BS 4 -6 x day Gestationa; diabetes 8XZL=707 test strips, 06/26/20 17:16:00 EST, Supply, 160.02, cm, 06/13/20 14:32:00 EST, Height Start Date: 06/26/20 Status: Ordered Humalog Kwik Pen 100 units/mL subcutaneous injection See Instructions, 46 ux with breakfast 38 ux with lunch 60 ux with dinner, # 15 mL, 5 Refills, Maintenance, 09/10/20 15:09:00 EDT, [facility], Partial fill upon patient request if the prescription is for a schedule II opioid drug., 160.02,... Start Date: 09/10/20 Status: Ordered Lantus Solostar Pen 100 units/mL subcutaneous solution 20 units in am and 86 units in pm, Subcutaneous Injection, Daily, # 30 mL, 6 Refills, Maintenance, 09/10/20 15:08:00 EDT, [facility], Partial fill upon patient request if the prescription isfor a schedule II opioid drug., 160.02, cm, ... Start Date: 09/10/20 Status: Ordered Pen [place], 31 G x 5 mm BD Ultra [...] Refills, Maintenance, 07/17/20 13:36:00 EDT, [facility]erosol, [facility], Partial fill upon patient request [...] diabetes managed by her PCP located at [address] [place] [address]/currently on Metformin 500mg BID. MFM consult for glucose control placed. 2BHN consult placed Social History Social History Type Response Smoking Status Former smoker, quit more than 30 days ago entered on: 05/23/20 Sex
--- OUTSIDE RECORDS SUMMARY | 2023-10-28 16:08 | XMS_ITS | Continuity of Care Document ---
Author Organization [facility] Address [address] [place] [address]- Care Team Providers Care Medical Social Consultant Name Role Phone Jaya JORDAN, Carmela Sanchez Primary Care Physician Encounter [facility] [place] Date(s): 11/27/20 - 01/02/[address] [address] Attending Physician: Arabella Duffy DO [...] Maintenance, 07/17/20 13:21:00 EDT, CR Tablet, [facility], Partial fill upon patient request if the prescription is for a scheduleII opioid drug. ACOG preE prophylaxis, 160.02, cm,... Start Date: 07/17/20 Stop Date: 01/13/21 Status: Ordered famotidine 10 mg oral tablet 1 tablet = 10 mg, By Mouth, 2 times a day, # 28 tablet, 0 Refills, Maintenance, 12/06/20 7:57:00 EDT, Tablet, [facility], Partial fill upon patient request if the prescription is for a schedule II opioid drug., 160, cm, 12/06/20 1:25:00 EDT,... Start Date: 12/06/20 Status: Ordered Flovent HFA 44 mcg/inh inhalation aerosol 2 puffs, Inhalation, 2 times a day, # 11 Gm, 0 Refills, Maintenance, 11/30/20 12:50:00 EDT, [facility]erosol, [facility], Partial fill upon patient request [...] BS 4 -6 x day Gestationa; diabetes 7VHW=269 test strips, 06/26/20 17:16:00 EST, Supply, 160.02, cm, 06/13/20 14:32:00 EST, Height Start Date: 06/26/20 Status: Ordered Humalog Kwik Pen 100 units/mL subcutaneous injection See Instructions, 60 ux with breakfast 54 ux with lunch 78 ux with dinner, # 15 mL, 5 Refills, Maintenance, 10/22/20 9:50:00 EDT, [facility], Partial fill upon patient request if the prescription is for a schedule II opioid drug., 160.02, c... Start Date: 10/22/20 Status: Ordered ibuprofen 600 mg oral tablet 600 mg, 1, tablet, By Mouth, 4 times a day, # 40 tablet, Refills 0, Tot. Refills 0, Maintenance, 12/06/20 7:58:00 EDT, Route to Pharmacy Electronically, [facility], Partial fill upon patientrequest if the prescription is for a schedule II op... Start Date: 12/06/20 Status: Ordered insulin lispro 100 u/ml subcutaneous injection = 8 units, Subcutaneous Infusion, 3 times a day before meals, Sliding scale 8 units for preprandial<150, 2 units additional for every 50 above 150., # 15 mL, 0 Refills, Maintenance, 12/06/20 8:13:00 EDT, [facility], Partial fill upon patien... Start Date: 12/06/20 Status: Ordered Lantus 100 u/ml subcutaneous solution = 30 units, Subcutaneous Injection, Daily, # 12 mL, 0 Refills, Maintenance, 12/06/20 8:11:00 EDT, Solution, [facility], Partial fill upon patient request if the prescription is for a schedule II opioid drug., 160, cm, 12/06/20 1:25:00 EDT, He... Start Date: 12/06/20 Status: Ordered Lantus Solostar Pen 100 units/mL subcutaneous solution 44 units in am and 100 units in pm, Subcutaneous Injection, Daily, # 12 mL, 6 Refills, Maintenance,09/10/20 15:08:00 EDT, [facility], Partial fill upon patient request if the prescription is for a schedule II opioid drug., 160.02, cm, ... Start Date: 09/10/20 Status: Ordered MiraLax oral powder for reconstitution = 17 Gm, By Mouth, Daily, dissolve in water before taking, # 255 Gm, 0 Refills, Maintenance, 12/06/20 7:57:00 EDT, REC Powder, [facility], Partial fill upon patient request if the prescription is for a schedule II opioid drug., 17 Gm By Mouth... Start Date: 12/06/20 Status: Ordered Pen [place], 31 G x 5 mm BD Ultra [...] 7:57:00 EDT, Route to Pharmacy Electronically, [facility], Partial fill upon patient request if the prescription is for a... Start Date: 12/06/20 Status: Ordered Ventolin HFA 108 mcg/inh inhalation aerosol with adapter 1 puffs, Inhalation, 4 times a day, PRN for wheezing, # 18 Gm, 0 Refills, Maintenance, 07/17/20 13:36:00 EDT, Aerosol, [facility], Partial fill upon patient request [...] managed by her PCP located at [address] [place] [address]/currently on Metformin 500mg BID. MFM consult for glucose control placed. 2BHN consult placed Social History Social History Type Response Smoking Status Former smoker, quit more than 30 days ago entered on: 05/23/20 Sex
--- OUTSIDE RECORDS SUMMARY | 2023-10-28 16:08 | XMS_ITS | Continuity of Care Document ---
Author Organization [facility] ter Address [address] [place] [address]- Care Team Providers Care Photo Printer Name Role Phone Jaya JORDAN, Carmela D Primary Care Physician [phone] Encounter [facility] [place] Date(s): 05/25/20 - 07/04/[address] [address] Attending Physician: Rayna Poole MD Admitting Physician: Rayna Poole MD Referring Physician: Emse Moreira MD Allergies, Adverse Reactions, Alerts Substance [...] BS 4 -6 x day Gestationa; diabetes 0EPX=881 test strips, 06/26/20 17:16:00 EST, Supply, 160.02, cm, 06/13/20 14:32:00 EST, Height Start Date: 06/26/20 Status: Ordered Humalog Kwik Pen 100 units/mL subcutaneous injection = 14 units, Subcutaneous Injection, 3 times a day before meals, # 15 mL, 5 Refills, Maintenance, 06/20/20 17:24:00 EST, [facility], Partial fill upon patient request [...] ES... Start Date: 06/13/20 Status: Ordered Pen [place], 31 G x 5 mm BD Ultra [...] diabetes managed by her PCP located at [address] [place] [address]/currently on Metformin 500mg BID. MFM consult for glucose control placed. 2BHN consult placed Social History Social History Type Response Smoking Status Former smoker, quit more than 30 days ago entered on: 05/23/20 Sex
--- OUTSIDE RECORDS SUMMARY | 2023-10-28 16:08 | XMS_ITS | Continuity of Care Document ---
Author Organization [facility] Address [address] [place] [address]- Care Team Providers Care Water Attendant Name Role Phone Jaya JORDAN, Carmela D Primary Care Physician Encounter [facility] Date(s): 11/27/20 - 12/27/20 [facility] [address] [place] [id number] Allergies, Adverse Reactions, Alerts Substance Reaction [...] Maintenance, 07/17/20 13:21:00 EDT, CR [place]t, [facility], Partial fill upon patient request if the prescription is for a scheduleII opioid drug. ACOG preE prophylaxis, 160.02, cm,... Start Date: 07/17/20 Stop Date: 01/13/21 Status: Ordered famotidine 10 mg oral tablet 1 tablet = 10 mg, By Mouth, 2 times a day, # 28 tablet, 0 Refills, Maintenance, 12/06/20 7:57:00 EDT, Tablet, [facility], Partial fill upon patient request if the prescription is for a schedule II opioid drug., 160, cm, 12/06/20 1:25:00 EDT,... Start Date: 12/06/20 Status: Ordered Flovent HFA 44 mcg/inh inhalation aerosol 2 puffs, Inhalation, 2 times a day, # 11 Gm, 0 Refills, Maintenance, 11/30/20 12:50:00 EDT, [facility]erosol, [facility], Partial fill upon patient request [...] BS 4 -6 x day Gestationa; diabetes 9BZD=664 test strips, 06/26/20 17:16:00 EST, Supply, 160.02, cm, 06/13/20 14:32:00 EST, Height Start Date: 06/26/20 Status: Ordered Humalog Kwik Pen 100 units/mL subcutaneous injection See Instructions, 60 ux with breakfast 54 ux with lunch 78 ux with dinner, # 15 mL, 5 Refills, Maintenance, 10/22/20 9:50:00 EDT, [facility], Partial fill upon patient request if the prescription is for a schedule II opioid drug., 160.02, c... Start Date: 10/22/20 Status: Ordered ibuprofen 600 mg oral tablet 600 mg, 1, tablet, By Mouth, 4 times a day, # 40 tablet, Refills 0, Tot. Refills 0, Maintenance, 12/06/20 7:58:00 EDT, Route to Pharmacy Electronically, [facility], Partial fill upon patientrequest if the prescription is for a schedule II op... Start Date: 12/06/20 Status: Ordered insulin lispro 100 u/ml subcutaneous injection = 8 units, Subcutaneous Infusion, 3 times a day before meals, Sliding scale 8 units for preprandial<150, 2 units additional for every 50 above 150., # 15 mL, 0 Refills, Maintenance, 12/06/20 8:13:00 EDT, [facility], Partial fill upon patien... Start Date: 12/06/20 Status: Ordered Lantus 100 u/ml subcutaneous solution = 30 units, Subcutaneous Injection, Daily, # 12 mL, 0 Refills, Maintenance, 12/06/20 8:11:00 EDT, Solution, [facility], Partial fill upon patient request if the prescription is for a schedule II opioid drug., 160, cm, 12/06/20 1:25:00 EDT, He... Start Date: 12/06/20 Status: Ordered Lantus Solostar Pen 100 units/mL subcutaneous solution 44 units in am and 100 units in pm, Subcutaneous Injection, Daily, # 12 mL, 6 Refills, Maintenance,09/10/20 15:08:00 EDT, [facility], Partial fill upon patient request if the prescription is for a schedule II opioid drug., 160.02, cm, ... Start Date: 09/10/20 Status: Ordered MiraLax oral powder for reconstitution = 17 Gm, By Mouth, Daily, dissolve in water before taking, # 255 Gm, 0 Refills, Maintenance, 12/06/20 7:57:00 EDT, REC Powder, [facility], Partial fill upon patient request if the prescription is for a schedule II opioid drug., 17 Gm By Mouth... Start Date: 12/06/20 Status: Ordered Pen [place], 31 G x 5 mm BD Ultra [...] 7:57:00 EDT, Route to Pharm[facility] Electronically, [facility], Partial fill upon patient request if the prescription is for a... Start Date: 12/06/20 Status: Ordered Ventolin HFA 108 mcg/inh inhalation aerosol with adapter 1 puffs, Inhalation, 4 times a day, PRN for wheezing, # 18 Gm, 0 Refills, Maintenance, 07/17/20 13:36:00 EDT, Aerosol, [facility], Partial fill upon patient request [...] diabetes managed by her PCP located at [address] [place] [address]/currently on Metformin 500mg BID. MFM consult for glucose control placed. 2BHN consult placed Social History Social History Type Response Smoking Status Former smoker, quit more than 30 days ago entered on: 05/23/20 Sex
--- OUTSIDE RECORDS SUMMARY | 2023-10-28 16:08 | XMS_ITS | Continuity of Care Document ---
Author Organization [facility] Address [address] [place] [address]- Care Team Providers Care Roll Contour Grinder Name Role Phone Jaya JORDAN, Carmela D Primary Care Physician [phone] Encounter [facility] [place] Date(s): 08/31/20 - 09/30/20 [facility] [address] [place] [id number] [...] Maintenance, 07/17/20 13:21:00 EDT, CR Tablet, [facility], Partial fill upon patient request if the prescription is for a scheduleII opioid drug. ACOG preE prophylaxis, 160.02, cm,... Start Date: 07/17/20 Stop Date: 01/13/21 Status: Ordered Freestyle Lite Test Strips See Instructions, # 1 pack/packet, Refills 5, Tot. Refills 5, Maintenance, To test BS 4 -6 x day Gestationa; diabetes 5OZE=149 test strips, 06/26/20 17:16:00 EST, Supply, 160.02, cm, 06/13/20 14:32:00 EST, Height Start Date: 06/26/20 Status: Ordered Humalog Kwik Pen 100 units/mL subcutaneous injection See Instructions, 42 ux with breakfast 34 ux with lunch 54 ux with dinner, # 15 mL, 5 Refills, Maintenance, 09/10/20 15:09:00 EDT, [facility], Partial fill upon patient request if the prescription is for a schedule II opioid drug., 160.02,... Start Date: 09/10/20 Status: Ordered Lantus Solostar Pen 100 units/mL subcutaneous solution = 90 units, Subcutaneous Injection, Daily at bedtime, # 15 mL, 6 Refills, Maintenance, 09/10/20 15:08:00 EDT, [facility], Partial fill upon patient request if the prescription is for a schedule II opioid drug., 160.02, cm, 08/13/20 8:50:00 ED... Start Date: 09/10/20 Status: Ordered Pen [place], 31 G x 5 mm BD Ultra [...] Refills, Maintenance, 07/17/20 13:36:00 EDT, Aerosol, [facility], Partial fill upon patient request [...] diabetes managed by her PCP located at [address] [place] [address]/currently on Metformin 500mg BID. MFM consult for glucose control placed. 2BHN consult placed Social History Social History Type Response Smoking Status Former smoker, quit more than 30 days ago entered on: 05/23/20 Sex
--- OUTSIDE RECORDS SUMMARY | 2023-10-28 16:08 | XMS_ITS | Continuity of Care Document ---
Author Organization [facility] Address [address] [place] [address]- Care Team Providers Care Sports Book Server Name Role Phone Jaya JORDAN, Carmela D Primary Care Physician [phone] Encounter [facility] Date(s): 11/14/20 - 12/14/20 [facility] [address] [place] [id number] Allergies, Adverse Reactions, Alerts Substance Reaction [...] Maintenance, 07/17/20 13:21:00 EDT, CR [place]t, [facility], Partial fill upon patient request if the prescription is for a scheduleII opioid drug. ACOG preE prophylaxis, 160.02, cm,... Start Date: 07/17/20 Stop Date: 01/13/21 Status: Ordered famotidine 10 mg oral tablet 1 tablet = 10 mg, By Mouth, 2 times a day, # 28 tablet, 0 Refills, Maintenance, 12/06/20 7:57:00 EDT, Tablet, [facility], Partial fill upon patient request if the prescription is for a schedule II opioid drug., 160, cm, 12/06/20 1:25:00 EDT,... Start Date: 12/06/20 Status: Ordered Flovent HFA 44 mcg/inh inhalation aerosol 2 puffs, Inhalation, 2 times a day, # 11 Gm, 0 Refills, Maintenance, 11/30/20 12:50:00 EDT, [facility]erosol, [facility], Partial fill upon patient request [...] BS 4 -6 x day Gestationa; diabetes 9WAQ=453 test strips, 06/26/20 17:16:00 EST, Supply, 160.02, cm, 06/13/20 14:32:00 EST, Height Start Date: 06/26/20 Status: Ordered Humalog Kwik Pen 100 units/mL subcutaneous injection See Instructions, 60 ux with breakfast 54 ux with lunch 78 ux with dinner, # 15 mL, 5 Refills, Maintenance, 10/22/20 9:50:00 EDT, [facility], Partial fill upon patient request if the prescription is for a schedule II opioid drug., 160.02, c... Start Date: 10/22/20 Status: Ordered ibuprofen 600 mg oral tablet 600 mg, 1, tablet, By Mouth, 4 times a day, # 40 tablet, Refills 0, Tot. Refills 0, Maintenance, 12/06/20 7:58:00 EDT, Route [place] [facility] Electronically, [facility], Partial fill upon patientrequest if the prescription is for a schedule II op... Start Date: 12/06/20 Status: Ordered insulin lispro 100 u/ml subcutaneous injection = 8 units, Subcutaneous Infusion, 3 times a day before meals, Sliding scale 8 units for preprandial<150, 2 units additional for every 50 above 150., # 15 mL, 0 Refills, Maintenance, 12/06/20 8:13:00 EDT, [facility], Partial fill upon patien... Start Date: 12/06/20 Status: Ordered Lantus 100 u/ml subcutaneous solution = 30 units, Subcutaneous Injection, Daily, # 12 mL, 0 Refills, Maintenance, 12/06/20 8:11:00 EDT, Solution, [facility], Partial fill upon patient request if the prescription is for a schedule II opioid drug., 160, cm, 12/06/20 1:25:00 EDT, He... Start Date: 12/06/20 Status: Ordered Lantus Solostar Pen 100 units/mL subcutaneous solution 44 units in am and 100 units in pm, Subcutaneous Injection, Daily, # 12 mL, 6 Refills, Maintenance,09/10/20 15:08:00 EDT, [facility], Partial fill upon patient request if the prescription is for a schedule II opioid drug., 160.02, cm, 08/13/... Start Date: 09/10/20 Status: Ordered MiraLax oral powder for reconstitution = 17 Gm, By Mouth, Daily, dissolve in water before taking, # 255 Gm, 0 Refills, Maintenance, 12/06/20 7:57:00 EDT, REC Powder, [facility], Partial fill upon patient request [...] 7:57:00 EDT, Route [place] Pharmacy Electronically, [facility], Partial fill upon patient request, 160,... Start Date: 12/06/20 Stop Date: 12/27/20 Status: Ordered Pen [place], 31 G x 5 mm BD Ultra [...] 7:57:00 EDT, 12/06/20 7:57:00 EDT, Tablet, [facility], Partial fill upon patient request if the prescription is for a schedule... Start Date: 12/06/20 Stop Date: 12/22/20 Status: Ordered Tylenol 325 mg oral tablet 650 mg, 2, tablet, By Mouth, Every 4 hours, PRN, # 40 tablet, Refills 0, Tot. Refills 0, Maintenance, for pain, 12/06/20 7:57:00 EDT, Route [place] Pharmacy Electronically, [facility], Partial fill upon patient request if the prescription is for a... Start Date: 12/06/20 Status: Ordered Ventolin HFA 108 mcg/inh inhalation aerosol with adapter 1 puffs, Inhalation, 4 times a day, PRN for wheezing, # 18 Gm, 0 Refills, Maintenance, 07/17/20 13:36:00 EDT, Aerosol, [facility], Partial fill upon patient request [...] managed by her PCP located at [address] [place] [address]/currently on Metformin 500mg BID. MFM consult for glucose control placed. 2BHN consult placed Social History Social History Type Response Smoking Status Former smoker, quit more than 30 days ago entered on: 05/23/20 Sex
--- OUTSIDE RECORDS SUMMARY | 2023-10-28 16:08 | XMS_ITS | Continuity of Care Document ---
Author Organization [facility] Address [address] [place] [address]- Care Team Providers Care Third Officer Name Role Phone Jaya JORDAN, Carmela Sanchez Primary Care Physician [phone] [facility]counter [facility] Date(s): 09/21/20 - 10/21/[address] [address]- Allergies, Adverse Reactions, Alerts Substance Reaction Severity [...] Maintenance, 07/17/20 13:21:00 EDT, [facility], [facility], Partial fill upon patient request if the prescription is for a scheduleII opioid drug. ACOG preE prophylaxis, 160.02, cm,... Start Date: 07/17/20 Stop Date: 01/13/21 Status: Ordered Freestyle Lite Test Strips See Instructions, # 1 pack/packet, Refills 5, Tot. Refills 5, Maintenance, To test BS 4 -6 x day Gestationa; diabetes 8LOI=203 test strips, 06/26/20 17:16:00 EST, Supply, 160.02, cm, 06/13/20 14:32:00 EST, Height Start Date: 06/26/20 Status: Ordered Humalog Kwik Pen 100 units/mL subcutaneous injection See Instructions, 46 ux with breakfast 38 ux with lunch 60 ux with dinner, # 15 mL, 5 Refills, Maintenance, 09/10/20 15:09:00 EDT, [facility], Partial fill upon patient request if the prescription is for a schedule II opioid drug., 160.02,... Start Date: 09/10/20 Status: Ordered Lantus Solostar Pen 100 units/mL subcutaneous solution 20 units in am and 86 units in pm, Subcutaneous Injection, Daily, # 30 mL, 6 Refills, Maintenance, 09/10/20 15:08:00 EDT, [facility], Partial fill upon patient request if the prescription isfor a schedule II opioid drug., 160.02, cm, ... Start Date: 09/10/20 Status: Ordered Pen [place], 31 G x 5 mm BD Ultra [...] Refills, Maintenance, 07/17/20 13:36:00 EDT, Aerosol, [facility], Partial fill upon patient request [...] managed by her PCP located at [address] [place] [address]/currently on Metformin 500mg BID. MFM consult for glucose control placed. 2BHN consult placed Social History Social History Type Response Smoking Status Former smoker, quit more than 30 days ago entered on: 05/23/20 Sex
--- OUTSIDE RECORDS SUMMARY | 2023-10-28 16:08 | XMS_ITS | Continuity of Care Document ---
Author Organization [facility] Address [address] [place] [address]- Care Team Providers Care Chemical Reclamation Equipment Operator Name Role Phone Jaya JORDAN, Carmela Sanchez Primary Care Physician Encounter [facility] Date(s): 08/13/20 - 09/12/[address] [address]- Allergies, Adverse Reactions, Alerts Substance Reaction Severity [...] Maintenance, 07/17/20 13:21:00 EDT, CR Tablet, [facility], Partial fill upon patient request if the prescription is for a scheduleII opioid drug. ACOG preE prophylaxis, 160.02, cm,... Start Date: 07/17/20 Stop Date: 01/13/21 Status: Ordered Freestyle Lite Test Strips See Instructions, # 1 pack/packet, Refills 5, Tot. Refills 5, Maintenance, To test BS 4 -6 x day Gestationa; diabetes 1WKZ=466 test strips, 06/26/20 17:16:00 EST, Supply, 160.02, cm, 06/13/20 14:32:00 EST, Height Start Date: 06/26/20 Status: Ordered Humalog Kwik Pen 100 units/mL subcutaneous injection See Instructions, 38 ux with breakfast 30 ux with lunch 50 ux with dinner, # 15 mL, 5 Refills, Maintenance, 09/10/20 15:09:00 EDT, [facility], Partial fill upon patient request if the prescription is for a schedule II opioid drug., 160.02,... Start Date: 09/10/20 Status: Ordered Lantus Solostar Pen 100 units/mL subcutaneous solution = 86 units, Subcutaneous Injection, Daily at bedtime, # 15 mL, 6 Refills, Maintenance, 09/10/20 15:08:00 EDT, [facility], Partial fill upon patient request if the prescription is for a schedule II opioid drug., 160.02, cm, 08/13/20 8:50:00 ED... Start Date: 09/10/20 Status: Ordered Pen [place], 31 G x 5 mm BD Ultra [...] Refills, Maintenance, 07/17/20 13:36:00 EDT, Aerosol, [facility], Partial fill upon patient request [...] diabetes managed by her PCP located at [address] [place] [address]/currently on Metformin 500mg BID. MFM consult for glucose control placed. 2BHN consult placed Social History Social History Type Response Smoking Status Former smoker, quit more than 30 days ago entered on: 05/23/20 Sex
--- OUTSIDE RECORDS SUMMARY | 2023-10-28 16:08 | XMS_ITS | Continuity of Care Document ---
Author Organization [facility] Address [address] [place] [address]- Care Team Providers Care Mold Preparer Name Role Phone Jaya JORDAN, Carmela Sanchez Primary Care Physician [phone] Encounter [facility] Date(s): 11/02/20 - 12/02/20 [facility] [address] [place] [id number] [...] Maintenance, 07/17/20 13:21:00 EDT, CR Tablet, [facility], Partial fill upon patient request if the prescription is for a scheduleII opioid drug. ACOG preE prophylaxis, 160.02, cm,... Start Date: 07/17/20 Stop Date: 01/13/21 Status: Ordered Flovent HFA 44 mcg/inh inhalation aerosol 2 puffs, Inhalation, 2 times a day, # 11 Gm, 0 Refills, Maintenance, 11/30/20 12:50:00 EDT, [facility]erosol, [facility], Partial fill upon patient request if the prescription is for a schedule II opioid drug., 160.02, cm, 11/29/20 13:29:00 EDT, Heigh... Start Date: 11/30/20 Status: Ordered Freestyle Lite Lancets See Instructions, [...] BS 4 -6 x day Gestationa; diabetes 3CRT=523 test strips, 06/26/20 17:16:00 EST, Supply, 160.02, cm, 06/13/20 14:32:00 EST, Height Start Date: 06/26/20 Status: Ordered Humalog Kwik Pen 100 units/mL subcutaneous injection See Instructions, 60 ux with breakfast 54 ux with lunch 78 ux with dinner, # 15 mL, 5 Refills, Maintenance, 10/22/20 9:50:00 EDT, [facility], Partial fill upon patient request if the prescription is for a schedule II opioid drug., 160.02, c... Start Date: 10/22/20 Status: Ordered Lantus Solostar Pen 100 units/mL subcutaneous solution 44 units in am and 100 units in pm, Subcutaneous Injection, Daily, # 12 mL, 6 Refills, Maintenance,09/10/20 15:08:00 EDT, [facility], Partial fill upon patient request if the prescription is for a schedule II opioid drug., 160.02, cm, 08/13/... Start Date: 09/10/20 Status: Ordered Pen [place], 31 G x 5 mm BD Ultra [...] Refills, Maintenance, 07/17/20 13:36:00 EDT, Aerosol, [facility], Partial fill upon patient request [...] managed by her PCP located at [address] [place] [address]/currently on Metformin 500mg BID. MFM consult for glucose control placed. 2BHN consult placed Social History Social History Type Response Smoking Status Former smoker, quit more than 30 days ago entered on: 05/23/20 Sex
--- OUTSIDE RECORDS SUMMARY | 2023-10-28 16:08 | XMS_ITS | Continuity of Care Document ---
Author Organization [facility] Address [address] [place] [address]- Care Team Providers Care Rehabilitation Center Manager Name Role Phone Jaya JORDAN, Carmela Sanchez Primary Care Physician [place] [facility] [place] 12/[place]/[address] [id number] Attending Physician: Arabella Duffy DO Admitting [...] Maintenance, 07/17/20 13:21:00 EDT, CR Tablet, [facility], Partial fill upon patient request if the prescription is for a scheduleII opioid drug. ACOG preE prophylaxis, 160.02, cm,... Start Date: 07/17/20 Stop Date: 01/13/21 Status: Ordered Flovent HFA 44 mcg/inh inhalation aerosol 2 puffs, Inhalation, 2 times a day, # 11 Gm, 0 Refills, Maintenance, 11/30/20 12:50:00 EDT, Aerosol, [facility], Partial fill upon patient request [...] BS 4 -6 x day Gestationa; diabetes 5YFU=148 test strips, 06/26/20 17:16:00 EST, Supply, 160.02, cm, 06/13/20 14:32:00 EST, Height Start Date: 06/26/20 Status: Ordered Humalog Kwik Pen 100 units/mL subcutaneous injection See Instructions, 60 ux with breakfast 54 ux with lunch 78 ux with dinner, # 15 mL, 5 Refills, Maintenance, 10/22/20 9:50:00 EDT, [facility], Partial fill upon patient request if the prescription is for a schedule II opioid drug., 160.02, c... Start Date: 10/22/20 Status: Ordered Lantus Solostar Pen 100 units/mL subcutaneous solution 44 units in am and 100 units in pm, Subcutaneous Injection, Daily, # 12 mL, 6 Refills, Maintenance,09/10/20 15:08:00 EDT, [facility], Partial fill upon patient request if the prescription is for a schedule II opioid drug., 160.02, cm, 08/13/... Start Date: 09/10/20 Status: Ordered Pen [place], 31 G x 5 mm BD Ultra [...] Refills, Maintenance, 07/17/20 13:36:00 EDT, Aerosol, [facility], Partial fill upon patient request [...] diabetes managed by her PCP located at [address]/currently on Metformin 500mg BID. MFM consult for glucose control placed. 2BHN consult placed Social History Social History Type Response Smoking Status Former smoker, quit more than 30 days ago entered on: 05/23/20 Sex
[2023-10-28 16:09] LABS: Basophils Absolute Auto 0.1 X10*3/uL (0.0-0.2); Basophils Percent Auto 0.8 % (0-2); Eosinophils Absolute Auto 0.2 X10*3/uL (0.0-0.4); Eosinophils Percent Auto 2.6 % (0-4); Hematocrit 33.8 % (37.0-47.0); Hemoglobin 9.9 g/dl (12.0-16.0); Imm Gran Abs Auto 0.03 X10*3/uL (0.00-0.03); Imm Gran Pct Auto 0.3 % (0.0-0.4); Lymphocytes Absolute Auto 3.1 X10*3/uL (1.2-4.9); Lymphocytes Percent Auto 33.6 % (20-40); Mean Corpuscular HGB Conc 29.3 g/dl (31.0-35.0); Mean Corpuscular Volume 71.8 fL (80.0-98.0); Mean Platelet Volume 10.1 fL (9.4-12.3); Monocytes Absolute Auto 0.7 X10*3/uL (0.1-1.2); Monocytes Percent Auto 7.4 % (2-11); Neutrophils Absolute Auto 5.1 x10*3/uL (2.0-8.3); Neutrophils Percent Auto 55.3 % (45-73); Platelet Count 257 X10*3/uL (160-400); Red Blood Count 4.71 X10*6/uL (4.20-5.50); Red Cell Distribution Width 16.4 % (11.0-16.0); White Blood Count 9.3 X10*3/uL (4.8-10.8)
--- OUTSIDE RECORDS SUMMARY | 2023-10-28 16:09 | XMS_ITS | Continuity of Care Document ---
Author Organization [facility] Address [address] [place] [address]- Care Team Providers Care Health Safety Specialist Name Role Phone Jaya JORDAN, Carmela D Primary Care Physician [place] [facility] [place]02[place] - 11/01/20 [facility] [address] [place] [address] Allergies, Adverse Reactions, Alerts Substance Reaction [...] Maintenance, 07/17/20 13:21:00 EDT, CR Tablet, [facility], Partial fill upon patient request if the prescription is for a scheduleII opioid drug. ACOG preE prophylaxis, 160.02, cm,... Start Date: 07/17/20 Stop Date: 01/13/21 Status: Ordered Freestyle Lite Test Strips See Instructions, # 1 pack/packet, Refills 5, Tot. Refills 5, Maintenance, To test BS 4 -6 x day Gestationa; diabetes 7RVP=713 test strips, 06/26/20 17:16:00 EST, Supply, 160.02, cm, 06/13/20 14:32:00 EST, Height Start Date: 06/26/20 Status: Ordered Humalog Kwik Pen 100 units/mL subcutaneous injection See Instructions, 50 ux with breakfast 44 ux with lunch 66 ux with dinner, # 15 mL, 5 Refills, Maintenance, 10/22/20 9:50:00 EDT, [facility], Partial fill upon patient request if the prescription is for a schedule II opioid drug., 160.02, c... Start Date: 10/22/20 Status: Ordered Lantus Solostar Pen 100 units/mL subcutaneous solution 28 units in am and 86 units in pm, Subcutaneous Injection, Daily, # 12 mL, 6 Refills, Maintenance, 09/10/20 15:08:00 EDT, [facility]207 [facility], Partial fill upon patient request if the prescription isfor a schedule II opioid drug., 160.02, cm, 2... Start Date: 09/10/20 Status: Ordered Pen [place], 31 G x 5 mm BD Ultra [...] Refills, Maintenance, 07/17/20 13:36:00 EDT, Aerosol, [facility]49 [facility], Partial fill upon patient request [...] diabetes managed by her PCP located at [address] [place] [address]/currently on Metformin 500mg BID. MFM consult for glucose control placed. 2BHN consult placed Social History Social History Type Response Smoking Status Former smoker, quit more than 30 days ago entered on: 05/23/20 Sex
--- OUTSIDE RECORDS SUMMARY | 2023-10-28 16:09 | XMS_ITS | Continuity of Care Document ---
Author Organization [facility] Address [address] [place] [address]- Care Team Providers Care Rn Telehealth Name Role Phone Jaya JORDAN, Carmela Sanchez Primary Care Physician [facility]counter [facility] Date(s): 09/21/20 - 10/21/[address] [address]- Allergies, Adverse Reactions, Alerts Substance Reaction Severity [...] Maintenance, 07/17/20 13:21:00 EDT, CR [place]t, [facility], Partial fill upon patient request if the prescription is for a scheduleII opioid drug. ACOG preE prophylaxis, 160.02, cm,... Start Date: 07/17/20 Stop Date: 01/13/21 Status: Ordered Freestyle Lite Test Strips See Instructions, # 1 pack/packet, Refills 5, Tot. Refills 5, Maintenance, To test BS 4 -6 x day Gestationa; diabetes 0SVA=278 test strips, 06/26/20 17:16:00 EST, Supply, 160.02, cm, 06/13/20 14:32:00 EST, Height Start Date: 06/26/20 Status: Ordered Humalog Kwik Pen 100 units/mL subcutaneous injection See Instructions, 46 ux with breakfast 38 ux with lunch 60 ux with dinner, # 15 mL, 5 Refills, Maintenance, 09/10/20 15:09:00 EDT, [facility], Partial fill upon patient request if the prescription is for a schedule II opioid drug., 160.02,... Start Date: 09/10/20 Status: Ordered Lantus Solostar Pen 100 units/mL subcutaneous solution 20 units in am and 86 units in pm, Subcutaneous Injection, Daily, # 30 mL, 6 Refills, Maintenance, 09/10/20 15:08:00 EDT, [facility]553 [facility], Partial fill upon patient request if the prescription isfor a schedule II opioid drug., 160.02, cm, ... Start Date: 09/10/20 Status: Ordered Pen [place], 31 G x 5 mm BD Ultra [...] Refills, Maintenance, 07/17/20 13:36:00 EDT, Aerosol, [facility]372 [facility], Partial fill upon patient request [...] diabetes managed by her PCP located at [address] [place] [address]/currently on Metformin 500mg BID. MFM consult for glucose control placed. 2BHN consult placed Social History Social History Type Response Smoking Status Former smoker, quit more than 30 days ago entered on: 05/23/20 Sex
--- OUTSIDE RECORDS SUMMARY | 2023-10-28 16:09 | XMS_ITS | Continuity of Care Document ---
Author Organization [facility] Address [address] [place] [address]- Care Team Providers Care Diabetic Educator Name Role Phone Carmela Lake MD Primary Care Physician [phone] [place] [facility] [place] Date(s): 05/29/20 - 06/30/[address] [address]- Attending Physician: Not on Staff, Attending MD Referring Physician: Carmela Lake MD Allergies, [...] BS 4 -6 x day Gestationa; diabetes 2OIP=368 test strips, 06/26/20 17:16:00 EST, Supply, 160.02, cm, 06/13/20 14:32:00 EST, Height Start Date: 06/26/20 Status: Ordered Humalog Kwik Pen 100 units/mL subcutaneous injection = 14 units, Subcutaneous Injection, 3 times a day before meals, # 15 mL, 5 Refills, Maintenance, 06/20/20 17:24:00 EST, [facility]23 [facility], Partial fill upon patient request [...] ES... Start Date: 06/13/20 Status: Ordered Pen [place], 31 G x 5 mm BD Ultra [...] managed by her PCP located at [address] [place] [address]/currently on Metformin 500mg BID. MFM consult for glucose control placed. 2BHN consult placed Social History Social History Type Response Smoking Status Former smoker, quit more than 30 days ago entered on: 05/23/20 Sex
--- OUTSIDE RECORDS SUMMARY | 2023-10-28 16:09 | XMS_ITS | Continuity of Care Document ---
Author Organization [facility] Address [address] [place] [address]- Care Team Providers Care Pattern Mechanic Name Role Phone Jaya JORDAN, Carmela Sanchez Primary Care Physician [facility]counter [facility] Date(s): 09/11/20 - 10/11/20 [facility] [address] [place] [id number] Allergies, Adverse Reactions, Alerts Substance [...] Maintenance, 07/17/20 13:21:00 EDT, CR Tablet, [facility], Partial fill upon patient request if the prescription is for a scheduleII opioid drug. ACOG preE prophylaxis, 160.02, cm,... Start Date: 07/17/20 Stop Date: 01/13/21 Status: Ordered Freestyle Lite Test Strips See Instructions, # 1 pack/packet, Refills 5, Tot. Refills 5, Maintenance, To test BS 4 -6 x day Gestationa; diabetes 7BHX=112 test strips, 06/26/20 17:16:00 EST, Supply, 160.02, cm, 06/13/20 14:32:00 EST, Height Start Date: 06/26/20 Status: Ordered Humalog Kwik Pen 100 units/mL subcutaneous injection See Instructions, 46 ux with breakfast 38 ux with lunch 60 ux with dinner, # 15 mL, 5 Refills, Maintenance, 09/10/20 15:09:00 EDT, [facility]000 [facility], Partial fill upon patient request if the prescription is for a schedule II opioid drug., 160.02,... Start Date: 09/10/20 Status: Ordered Lantus Solostar Pen 100 units/mL subcutaneous solution 20 units in am and 86 units in pm, Subcutaneous Injection, Daily, # 30 mL, 6 Refills, Maintenance, 09/10/20 15:08:00 EDT, [facility]76 [facility], Partial fill upon patient request if the prescription isfor a schedule II opioid drug., 160.02, cm, ... Start Date: 09/10/20 Status: Ordered Pen [place], 31 G x 5 mm BD Ultra [...] Refills, Maintenance, 07/17/20 13:36:00 EDT, Aerosol, [facility]754 [facility], Partial fill upon patient request [...] diabetes managed by her PCP located at [address] [place] [address]/currently on Metformin 500mg BID. MFM consult for glucose control placed. 2BHN consult placed Social History Social History Type Response Smoking Status Former smoker, quit more than 30 days ago entered on: 05/23/20 Sex
--- OUTSIDE RECORDS SUMMARY | 2023-10-28 16:09 | XMS_ITS | Continuity of Care Document ---
Author Organization [facility] Address [address] [place] [address]- Care Team Providers Care Legal Adviser Name Role Phone Jaya JORDAN, Carmela D Primary Care Physician [phone] [place] [facility] [place]/17/20 - 09/16/20 [facility] [address] [place] [id number] [...] Maintenance, 07/17/20 13:21:00 EDT, CR Tablet, [facility], Partial fill upon patient request if the prescription is for a scheduleII opioid drug. ACOG preE prophylaxis, 160.02, cm,... Start Date: 07/17/20 Stop Date: 01/13/21 Status: Ordered Freestyle Lite Test Strips See Instructions, # 1 pack/packet, Refills 5, Tot. Refills 5, Maintenance, To test BS 4 -6 x day Gestationa; diabetes 5BIQ=367 test strips, 06/26/20 17:16:00 EST, Supply, 160.02, cm, 06/13/20 14:32:00 EST, Height Start Date: 06/26/20 Status: Ordered Humalog Kwik Pen 100 units/mL subcutaneous injection See Instructions, 38 ux with breakfast 30 ux with lunch 50 ux with dinner, # 15 mL, 5 Refills, Maintenance, 09/10/20 15:09:00 EDT, [facility]245 [facility], Partial fill upon patient request if the prescription is for a schedule II opioid drug., 160.02,... Start Date: 09/10/20 Status: Ordered Lantus Solostar Pen 100 units/mL subcutaneous solution = 86 units, Subcutaneous Injection, Daily at bedtime, # 15 mL, 6 Refills, Maintenance, 09/10/20 15:08:00 EDT, [facility] 57283 [facility], Partial fill upon patient request if the prescription is for a schedule II opioid drug., 160.02, cm, 08/13/20 8:50:00 ED... Start Date: 09/10/20 Status: Ordered Pen [place], 31 G x 5 mm BD Ultra [...] Refills, Maintenance, 07/17/20 13:36:00 EDT, Aerosol, [facility] 68349 [facility], Partial fill upon patient request [...] diabetes managed by her PCP located at [address] [place] [address]/currently on Metformin 500mg BID. MFM consult for glucose control placed. 2BHN consult placed Social History Social History Type Response Smoking Status Former smoker, quit more than 30 days ago entered on: 05/23/20 Sex
--- OUTSIDE RECORDS SUMMARY | 2023-10-28 16:09 | XMS_ITS | Continuity of Care Document ---
Author Organization [facility] Address [address] [place] [address]- Care Team Providers Care Cnc Programmer Name Role Phone Carmela Lake MD Primary Care Physician [phone] En[place] [facility] [place] Date(s): 09/18/20 - 10/20/[address] [address]- Attending Physician: Not on Staff, Attending MD [...] Maintenance, 07/17/20 13:21:00 EDT, CR Tablet, [facility]35 [facility], Partial fill upon patient request if the prescription is for a scheduleII opioid drug. ACOG preE prophylaxis, 160.02, cm,... Start Date: 07/17/20 Stop Date: 01/13/21 Status: Ordered Freestyle Lite Test Strips See Instructions, # 1 pack/packet, Refills 5, Tot. Refills 5, Maintenance, To test BS 4 -6 x day Gestationa; diabetes 5IQT=579 test strips, 06/26/20 17:16:00 EST, Supply, 160.02, cm, 06/13/20 14:32:00 EST, Height Start Date: 06/26/20 Status: Ordered Humalog Kwik Pen 100 units/mL subcutaneous injection See Instructions, 46 ux with breakfast 38 ux with lunch 60 ux with dinner, # 15 mL, 5 Refills, Maintenance, 09/10/20 15:09:00 EDT, [facility]102 [facility], Partial fill upon patient request if the prescription is for a schedule II opioid drug., 160.02,... Start Date: 09/10/20 Status: Ordered Lantus Solostar Pen 100 units/mL subcutaneous solution 20 units in am and 86 units in pm, Subcutaneous Injection, Daily, # 30 mL, 6 Refills, Maintenance, 09/10/20 15:08:00 EDT, [facility]130 [facility], Partial fill upon patient request if the prescription isfor a schedule II opioid drug., 160.02, cm, ... Start Date: 09/10/20 Status: Ordered Pen [place], 31 G x 5 mm BD Ultra [...] Refills, Maintenance, 07/17/20 13:36:00 EDT, Aerosol, [facility]709 [facility], Partial fill upon patient request [...] managed by her PCP located at [address] [place] [address]/currently on Metformin 500mg BID. MFM consult for glucose control placed. 2BHN consult placed Social History Social History Type Response Smoking Status Former smoker, quit more than 30 days ago entered on: 05/23/20 Sex
--- OUTSIDE RECORDS SUMMARY | 2023-10-28 16:09 | XMS_ITS | Continuity of Care Document ---
Author Organization [facility] Address [address] [place] [address]- Care Team Providers Care Meter And Regulator Shop Supervisor Name Role Phone Jaya JORDAN, Carmela Laura Primary Care Physician Encounter [facility] Date(s): 08/23/20 - 09/22/20 [facility]aternal [facility] [address] [place] [id number] Allergies, Adverse Reactions, Alerts Substance [...] Maintenance, 07/17/20 13:21:00 EDT, CR [place], Partial fill upon patient request if the prescription is for a scheduleII opioid drug. ACOG preE prophylaxis, 160.02, cm,... Start Date: 07/17/20 Stop Date: 01/13/21 Status: Ordered Freestyle Lite Test Strips See Instructions, # 1 pack/packet, Refills 5, Tot. Refills 5, Maintenance, To test BS 4 -6 x day Gestationa; diabetes 8ELC=891 test strips, 06/26/20 17:16:00 EST, Supply, 160.02, cm, 06/13/20 14:32:00 EST, Height Start Date: 06/26/20 Status: Ordered Humalog Kwik Pen 100 units/mL subcutaneous injection See Instructions, 42 ux with breakfast 34 ux with lunch 54 ux with dinner, # 15 mL, 5 Refills, Maintenance, 09/10/20 15:09:00 EDT, [facility]606 [facility], Partial fill upon patient request if the prescription is for a schedule II opioid drug., 160.02,... Start Date: 09/10/20 Status: Ordered Lantus Solostar Pen 100 units/mL subcutaneous solution = 90 units, Subcutaneous Injection, Daily at bedtime, # 15 mL, 6 Refills, Maintenance, 09/10/20 15:08:00 EDT, [facility]98 [facility], Partial fill upon patient request if the prescription is for a schedule II opioid drug., 160.02, cm, 08/13/20 8:50:00 ED... Start Date: 09/10/20 Status: Ordered Pen [place], 31 G x 5 mm BD Ultra [...] Refills, Maintenance, 07/17/20 13:36:00 EDT, Aerosol, [facility]24 [facility], Partial fill upon patient request [...] managed by her PCP located at [address] [place] [address]/currently on Metformin 500mg BID. MFM consult for glucose control placed. 2BHN consult placed Social History Social History Type Response Smoking Status Former smoker, quit more than 30 days ago entered on: 05/23/20 Sex
--- OUTSIDE RECORDS SUMMARY | 2023-10-28 16:09 | XMS_ITS | Continuity of Care Document ---
Author Organization [facility] Address [address] [place] [address]- Care Team Providers Care Skydiving Instructor Name Role Phone Jaya JORDAN, Carmela Sanchez Primary Care Physician [phone] Encounter [facility] Date(s): 09/10/20 - 10/10/[address] [address]- Allergies, Adverse Reactions, Alerts Substance Reaction Severity [...] Maintenance, 07/17/20 13:21:00 EDT, CR [facility], [id number], Partial fill upon patient request if the prescription is for a scheduleII opioid drug. ACOG preE prophylaxis, 160.02, cm,... Start Date: 07/17/20 Stop Date: 01/13/21 Status: Ordered Freestyle Lite Test Strips See Instructions, # 1 pack/packet, Refills 5, Tot. Refills 5, Maintenance, To test BS 4 -6 x day Gestationa; diabetes 7TXX=654 test strips, 06/26/20 17:16:00 EST, Supply, 160.02, cm, 06/13/20 14:32:00 EST, Height Start Date: 06/26/20 Status: Ordered Humalog Kwik Pen 100 units/mL subcutaneous injection See Instructions, 46 ux with breakfast 38 ux with lunch 60 ux with dinner, # 15 mL, 5 Refills, Maintenance, 09/10/20 15:09:00 EDT, [facility], Partial fill upon patient request if the prescription is for a schedule II opioid drug., 160.02,... Start Date: 09/10/20 Status: Ordered Lantus Solostar Pen 100 units/mL subcutaneous solution 20 units in am and 86 units in pm, Subcutaneous Injection, Daily, # 30 mL, 6 Refills, Maintenance, 09/10/20 15:08:00 EDT, [facility], Partial fill upon patient request if the prescription isfor a schedule II opioid drug., 160.02, cm, ... Start Date: 09/10/20 Status: Ordered Pen [place], 31 G x 5 mm BD Ultra [...] Refills, Maintenance, 07/17/20 13:36:00 EDT, Aerosol, [facility], Partial fill upon patient request [...] managed by her PCP located at [address] [place] [address]/currently on Metformin 500mg BID. MFM consult for glucose control placed. 2BHN consult placed Social History Social History Type Response Smoking Status Former smoker, quit more than 30 days ago entered on: 05/23/20 Sex
--- OUTSIDE RECORDS SUMMARY | 2023-10-28 16:09 | XMS_ITS | Continuity of Care Document ---
Author Organization [facility] Address [address] [place] [address]- Care Team Providers Care Posting Clerk Name Role Phone Jaya JORDAN, Carmela Sanchez Primary Care Physician Encounter [facility] Date(s): 09/21/20 - 10/21/[facility] [address] [place] [id number] Allergies, Adverse Reactions, Alerts Substance Reaction Severity [...] Maintenance, 07/17/20 13:21:00 EDT, CR Tablet, [facility], Partial fill upon patient request if the prescription is for a scheduleII opioid drug. ACOG preE prophylaxis, 160.02, cm,... Start Date: 07/17/20 Stop Date: 01/13/21 Status: Ordered Freestyle Lite Test Strips See Instructions, # 1 pack/packet, Refills 5, Tot. Refills 5, Maintenance, To test BS 4 -6 x day Gestationa; diabetes 3VKU=135 test strips, 06/26/20 17:16:00 EST, Supply, 160.02, cm, 06/13/20 14:32:00 EST, Height Start Date: 06/26/20 Status: Ordered Humalog Kwik Pen 100 units/mL subcutaneous injection See Instructions, 46 ux with breakfast 38 ux with lunch 60 ux with dinner, # 15 mL, 5 Refills, Maintenance, 09/10/20 15:09:00 EDT, [facility], Partial fill upon patient request if the prescription is for a schedule II opioid drug., 160.02,... Start Date: 09/10/20 Status: Ordered Lantus Solostar Pen 100 units/mL subcutaneous solution 20 units in am and 86 units in pm, Subcutaneous Injection, Daily, # 30 mL, 6 Refills, Maintenance, 09/10/20 15:08:00 EDT, [id number], Partial fill upon patient request if the prescription isfor a schedule II opioid drug., 160.02, cm, ... Start Date: 09/10/20 Status: Ordered Pen [place], 31 G x 5 mm BD Ultra [...] Refills, Maintenance, 07/17/20 13:36:00 EDT, [facility]erosol, [facility], Partial fill upon patient request [...] diabetes managed by her PCP located at [address] [place] [address]/currently on Metformin 500mg BID. MFM consult for glucose control placed. 2BHN consult placed Social History Social History Type Response Smoking Status Former smoker, quit more than 30 days ago entered on: 05/23/20 Sex
--- OUTSIDE RECORDS SUMMARY | 2023-10-28 16:09 | XMS_ITS | Continuity of Care Document ---
Author Organization [facility] Address [address] [place] [address]- Care Team Providers Care Cloth Mender Name Role Phone Jaya JORDAN, Carmela Sanchez Primary Care Physician Encounter [facility] Date(s): 10/01/20 - 10/31/[facility] [address] [place] [id number] Allergies, Adverse Reactions, [...] Maintenance, 07/17/20 13:21:00 EDT, CR Tablet, [facility], Partial fill upon patient request if the prescription is for a scheduleII opioid drug. ACOG preE prophylaxis, 160.02, cm,... Start Date: 07/17/20 Stop Date: 01/13/21 Status: Ordered Freestyle Lite Test Strips See Instructions, # 1 pack/packet, Refills 5, Tot. Refills 5, Maintenance, To test BS 4 -6 x day Gestationa; diabetes 6BZG=577 test strips, 06/26/20 17:16:00 EST, Supply, 160.02, cm, 06/13/20 14:32:00 EST, Height Start Date: 06/26/20 Status: Ordered Humalog Kwik Pen 100 units/mL subcutaneous injection See Instructions, 50 ux with breakfast 44 ux with lunch 66 ux with dinner, # 15 mL, 5 Refills, Maintenance, 10/22/20 9:50:00 EDT, [facility], Partial fill upon patient request if the prescription is for a schedule II opioid drug., 160.02, c... Start Date: 10/22/20 Status: Ordered Lantus Solostar Pen 100 units/mL subcutaneous solution 28 units in am and 86 units in pm, Subcutaneous Injection, Daily, # 12 mL, 6 Refills, Maintenance, 09/10/20 15:08:00 EDT, [id number], Partial fill upon patient request if the prescription isfor a schedule II opioid drug., 160.02, cm, 2... Start Date: 09/10/20 Status: Ordered Pen [place], 31 G x 5 mm BD Ultra [...] Refills, Maintenance, 07/17/20 13:36:00 EDT, [facility]erosol, [facility], Partial fill upon patient request [...] diabetes managed by her PCP located at [address] [place] [address]/currently on Metformin 500mg BID. MFM consult for glucose control placed. 2BHN consult placed Social History Social History Type Response Smoking Status Former smoker, quit more than 30 days ago entered on: 05/23/20 Sex
--- OUTSIDE RECORDS SUMMARY | 2023-10-28 16:09 | XMS_ITS | Continuity of Care Document ---
Author Organization [facility] Address [address] [place] [address]- Care Team Providers Care Optometrist Assistant Name Role Phone Jaya JORDAN, Carmela Sanchez Primary Care Physician [phone] Encounter [facility] Date(s): 01/10/21 - 02/09/[address] [address]- Allergies, Adverse Reactions, Alerts Substance Reaction Severity [...] Maintenance, 07/17/20 13:21:00 EDT, CR [facility]t, [facility], Partial fill upon patient request if the prescription is for a scheduleII opioid drug. ACOG preE prophylaxis, 160.02, cm,... Start Date: 07/17/20 Stop Date: 01/13/21 Status: Ordered famotidine 10 mg oral tablet 1 tablet = 10 mg, By Mouth, 2 times a day, # 28 tablet, 0 Refills, Maintenance, 12/06/20 7:57:00 EDT, Tablet, [facility], Partial fill upon patient request if the prescription is for a schedule II opioid drug., 160, cm, 12/06/20 1:25:00 EDT,... Start Date: 12/06/20 Status: Ordered Flovent HFA 44 mcg/inh inhalation aerosol 2 puffs, Inhalation, 2 times a day, # 11 Gm, 0 Refills, Maintenance, 11/30/20 12:50:00 EDT, [facility]erosol, [facility], Partial fill upon patient request [...] BS 4 -6 x day Gestationa; diabetes 5HYQ=895 test strips, 06/26/20 17:16:00 EST, Supply, 160.02, cm, 06/13/20 14:32:00 EST, Height Start Date: 06/26/20 Status: Ordered Humalog Kwik Pen 100 units/mL subcutaneous injection See Instructions, 60 ux with breakfast 54 ux with lunch 78 ux with dinner, # 15 mL, 5 Refills, Maintenance, 10/22/20 9:50:00 EDT, [facility], Partial fill upon patient request if the prescription is for a schedule II opioid drug., 160.02, c... Start Date: 10/22/20 Status: Ordered ibuprofen 600 mg oral tablet 600 mg, 1, tablet, By Mouth, 4 times a day, # 40 tablet, Refills 0, Tot. Refills 0, Maintenance, 12/06/20 7:58:00 EDT, Route to Pharmacy Electronically, [facility], Partial fill upon patientrequest if the prescription is for a schedule II op... Start Date: 12/06/20 Status: Ordered insulin lispro 100 u/ml subcutaneous injection = 8 units, Subcutaneous Infusion, 3 times a day before meals, Sliding scale 8 units for preprandial<150, 2 units additional for every 50 above 150., # 15 mL, 0 Refills, Maintenance, 12/06/20 8:13:00 EDT, [facility], Partial fill upon patien... Start Date: 12/06/20 Status: Ordered Lantus 100 u/ml subcutaneous solution = 30 units, Subcutaneous Injection, Daily, # 12 mL, 0 Refills, Maintenance, 12/06/20 8:11:00 EDT, Solution, [facility], Partial fill upon patient request if the prescription is for a schedule II opioid drug., 160, cm, 12/06/20 1:25:00 EDT, He... Start Date: 12/06/20 Status: Ordered Lantus Solostar Pen 100 units/mL subcutaneous solution 44 units in am and 100 units in pm, Subcutaneous Injection, Daily, # 12 mL, 6 Refills, Maintenance,09/10/20 15:08:00 EDT, [facility], Partial fill upon patient request if the prescription is for a schedule II opioid drug., 160.02, cm, ... Start Date: 09/10/20 Status: Ordered MiraLax oral powder for reconstitution = 17 Gm, By Mouth, Daily, dissolve in water before taking, # 255 Gm, 0 Refills, Maintenance, 12/06/20 7:57:00 EDT, REC Powder, [facility], Partial fill upon patient request if the prescription is for a schedule II opioid drug., 17 Gm By Mouth... Start Date: 12/06/20 Status: Ordered Pen [place], 31 G x 5 mm BD Ultra [...] 7:57:00 EDT, Route to Pharmacy Electronically, [facility], Partial fill upon patient request if the prescription is for a... Start Date: 12/06/20 Status: Ordered Ventolin HFA 108 mcg/inh inhalation aerosol with adapter 1 puffs, Inhalation, 4 times a day, PRN for wheezing, # 18 Gm, 0 Refills, Maintenance, 07/17/20 13:36:00 EDT, [facility]erosol, [facility], Partial fill upon patient request [...] managed by her PCP located at [address] [place] [address]/currently on Metformin 500mg BID. MFM consult for glucose control placed. 2BHN consult placed Social History Social History Type Response Smoking Status Former smoker, quit more than 30 days ago entered on: 05/23/20 Sex
--- OUTSIDE RECORDS SUMMARY | 2023-10-28 16:09 | XMS_ITS | Continuity of Care Document ---
Author Organization [facility] Address [address] [place] [address]- Care Team Providers Care Moisture Machine Tender Name Role Phone Jaya JORDAN, Carmela D Primary Care Physician Encounter [facility] [facility] Date(s): 10/04/20 - 01/05/[address] [address]- Attending Physician: Not on Staff, Attending MD [...] Maintenance, 07/17/20 13:21:00 EDT, CR Tablet, [facility], Partial fill upon patient request if the prescription is for a scheduleII opioid drug. ACOG preE prophylaxis, 160.02, cm,... Start Date: 07/17/20 Stop Date: 01/13/21 Status: Ordered famotidine 10 mg oral tablet 1 tablet = 10 mg, By Mouth, 2 times a day, # 28 tablet, 0 Refills, Maintenance, 12/06/20 7:57:00 EDT, Tablet, [facility], Partial fill upon patient request if the prescription is for a schedule II opioid drug., 160, cm, 12/06/20 1:25:00 EDT,... Start Date: 12/06/20 Status: Ordered Flovent HFA 44 mcg/inh inhalation aerosol 2 puffs, Inhalation, 2 times a day, # 11 Gm, 0 Refills, Maintenance, 11/30/20 12:50:00 EDT, [facility]erosol, [facility], Partial fill upon patient request [...] BS 4 -6 x day Gestationa; diabetes 4KIB=752 test strips, 06/26/20 17:16:00 EST, Supply, 160.02, cm, 06/13/20 14:32:00 EST, Height Start Date: 06/26/20 Status: Ordered Humalog Kwik Pen 100 units/mL subcutaneous injection See Instructions, 60 ux with breakfast 54 ux with lunch 78 ux with dinner, # 15 mL, 5 Refills, Maintenance, 10/22/20 9:50:00 EDT, [facility], Partial fill upon patient request if the prescription is for a schedule II opioid drug., 160.02, c... Start Date: 10/22/20 Status: Ordered ibuprofen 600 mg oral tablet 600 mg, 1, tablet, By Mouth, 4 times a day, # 40 tablet, Refills 0, Tot. Refills 0, Maintenance, 12/06/20 7:58:00 EDT, Route [place] Pharm[facility] Electronically, [facility], Partial fill upon patientrequest if the prescription is for a schedule II op... Start Date: 12/06/20 Status: Ordered insulin lispro 100 u/ml subcutaneous injection = 8 units, Subcutaneous Infusion, 3 times a day before meals, Sliding scale 8 units for preprandial<150, 2 units additional for every 50 above 150., # 15 mL, 0 Refills, Maintenance, 12/06/20 8:13:00 EDT, [facility], Partial fill upon patien... Start Date: 12/06/20 Status: Ordered Lantus 100 u/ml subcutaneous solution = 30 units, Subcutaneous Injection, Daily, # 12 mL, 0 Refills, Maintenance, 12/06/20 8:11:00 EDT, Solution, [facility], Partial fill upon patient request if the prescription is for a schedule II opioid drug., 160, cm, 12/06/20 1:25:00 EDT, He... Start Date: 12/06/20 Status: Ordered Lantus Solostar Pen 100 units/mL subcutaneous solution 44 units in am and 100 units in pm, Subcutaneous Injection, Daily, # 12 mL, 6 Refills, Maintenance,09/10/20 15:08:00 EDT, [facility], Partial fill upon patient request if the prescription is for a schedule II opioid drug., 160.02, cm, ... Start Date: 09/10/20 Status: Ordered MiraLax oral powder for reconstitution = 17 Gm, By Mouth, Daily, dissolve in water before taking, # 255 Gm, 0 Refills, Maintenance, 12/06/20 7:57:00 EDT, REC Powder, [facility], Partial fill upon patient request if the prescription is for a schedule II opioid drug., 17 Gm By Mouth... Start Date: 12/06/20 Status: Ordered Pen [place], 31 G x 5 mm BD Ultra [...] 7:57:00 EDT, Route to Pharmacy Electronically, [facility], Partial fill upon patient request if the prescription is for a... Start Date: 12/06/20 Status: Ordered Ventolin HFA 108 mcg/inh inhalation aerosol with adapter 1 puffs, Inhalation, 4 times a day, PRN for wheezing, # 18 Gm, 0 Refills, Maintenance, 07/17/20 13:36:00 EDT, [facility]erosol, [facility], Partial fill upon patient request [...] diabetes managed by her PCP located at [address] [place] [address]/currently on Metformin 500mg BID. MFM consult for glucose control placed. 2BHN consult placed Social History Social History Type Response Smoking Status Former smoker, quit more than 30 days ago entered on: 05/23/20 Sex
--- OUTSIDE RECORDS SUMMARY | 2023-10-28 16:09 | XMS_ITS | Continuity of Care Document ---
Author Organization [facility] Address [address] [place] [address]- Care Team Providers Care Technical Manager Name Role Phone Jaya JORDAN, Carmela Sanchez Primary Care Physician [phone] [place] [facility] 09/10/20 - 10/27/[address] [address]- Attending Physician: Not on Staff, Attending MD Referring Physician: Not on Staff, Referring MD Allergies, Adverse Reactions, Alerts Substance Reaction [...] Maintenance, 07/17/20 13:21:00 EDT, [place]t, [facility], Partial fill upon patient request if the prescription is for a scheduleII opioid drug. ACOG preE prophylaxis, 160.02, cm,... Start Date: 07/17/20 Stop Date: 01/13/21 Status: Ordered Freestyle Lite Test Strips See Instructions, # 1 pack/packet, Refills 5, Tot. Refills 5, Maintenance, To test BS 4 -6 x day Gestationa; diabetes 3RUU=076 test strips, 06/26/20 17:16:00 EST, Supply, 160.02, cm, 06/13/20 14:32:00 EST, Height Start Date: 06/26/20 Status: Ordered Humalog Kwik Pen 100 units/mL subcutaneous injection See Instructions, 50 ux with breakfast 44 ux with lunch 66 ux with dinner, # 15 mL, 5 Refills, Maintenance, 10/22/20 9:50:00 EDT, [facility], Partial fill upon patient request if the prescription is for a schedule II opioid drug., 160.02, c... Start Date: 10/22/20 Status: Ordered Lantus Solostar Pen 100 units/mL subcutaneous solution 28 units in am and 86 units in pm, Subcutaneous Injection, Daily, # 12 mL, 6 Refills, Maintenance, 09/10/20 15:08:00 EDT, [id number], Partial fill upon patient request if the prescription isfor a schedule II opioid drug., 160.02, cm, ... Start Date: 09/10/20 Status: Ordered Pen [place], 31 G x 5 mm BD Ultra [...] Refills, Maintenance, 07/17/20 13:36:00 EDT, [facility]erosol, [facility], Partial fill upon patient request [...] diabetes managed by her PCP located at [address] [place] [address]/currently on Metformin 500mg BID. MFM consult for glucose control placed. 2BHN consult placed Social History Social History Type Response Smoking Status Former smoker, quit more than 30 days ago entered on: 05/23/20 Sex
--- OUTSIDE RECORDS SUMMARY | 2023-10-28 16:09 | XMS_ITS | Continuity of Care Document ---
Author Organization [facility] Address [address] [place] [address]- Care Team Providers Care Plc Programmer Name Role Phone Jaya JORDAN, Carmela D Primary Care Physician Encounter [facility] [place] Date(s): 11/29/20 - 01/02/[address] [address]- Attending Physician: Priyanka Cannon MD Admitting Physician: Priyanka Cannon MD Referring Physician: Kelsey Eddy DO Allergies, Adverse [...] Maintenance, 07/17/20 13:21:00 EDT, CR [facility]t, [facility], Partial fill upon patient request if the prescription is for a scheduleII opioid drug. ACOG preE prophylaxis, 160.02, cm,... Start Date: 07/17/20 Stop Date: 01/13/21 Status: Ordered famotidine 10 mg oral tablet 1 tablet = 10 mg, By Mouth, 2 times a day, # 28 tablet, 0 Refills, Maintenance, 12/06/20 7:57:00 EDT, Tablet, [facility], Partial fill upon patient request if the prescription is for a schedule II opioid drug., 160, cm, 12/06/20 1:25:00 EDT,... Start Date: 12/06/20 Status: Ordered Flovent HFA 44 mcg/inh inhalation aerosol 2 puffs, Inhalation, 2 times a day, # 11 Gm, 0 Refills, Maintenance, 11/30/20 12:50:00 EDT, [facility]erosol, [facility], Partial fill upon patient request [...] BS 4 -6 x day Gestationa; diabetes 1JVP=346 test strips, 06/26/20 17:16:00 EST, Supply, 160.02, cm, 06/13/20 14:32:00 EST, Height Start Date: 06/26/20 Status: Ordered Humalog Kwik Pen 100 units/mL subcutaneous injection See Instructions, 60 ux with breakfast 54 ux with lunch 78 ux with dinner, # 15 mL, 5 Refills, Maintenance, 10/22/20 9:50:00 EDT, [facility], Partial fill upon patient request if the prescription is for a schedule II opioid drug., 160.02, c... Start Date: 10/22/20 Status: Ordered ibuprofen 600 mg oral tablet 600 mg, 1, tablet, By Mouth, 4 times a day, # 40 tablet, Refills 0, Tot. Refills 0, Maintenance, 12/06/20 7:58:00 EDT, Route [place] Pharm[facility] Electronically, [id number], Partial fill upon patientrequest if the prescription is for a schedule II op... Start Date: 12/06/20 Status: Ordered insulin lispro 100 u/ml subcutaneous injection = 8 units, Subcutaneous Infusion, 3 times a day before meals, Sliding scale 8 units for preprandial<150, 2 units additional for every 50 above 150., # 15 mL, 0 Refills, Maintenance, 12/06/20 8:13:00 EDT, [facility], Partial fill upon patien... Start Date: 12/06/20 Status: Ordered Lantus 100 u/ml subcutaneous solution = 30 units, Subcutaneous Injection, Daily, # 12 mL, 0 Refills, Maintenance, 12/06/20 8:11:00 EDT, Solution, [facility], Partial fill upon patient request if the prescription is for a schedule II opioid drug., 160, cm, 12/06/20 1:25:00 EDT, He... Start Date: 12/06/20 Status: Ordered Lantus Solostar Pen 100 units/mL subcutaneous solution 44 units in am and 100 units in pm, Subcutaneous Injection, Daily, # 12 mL, 6 Refills, Maintenance,09/10/20 15:08:00 EDT, [facility], Partial fill upon patient request if the prescription is for a schedule II opioid drug., 160.02, cm, ... Start Date: 09/10/20 Status: Ordered MiraLax oral powder for reconstitution = 17 Gm, By Mouth, Daily, dissolve in water before taking, # 255 Gm, 0 Refills, Maintenance, 12/06/20 7:57:00 EDT, REC Powder, [facility], Partial fill upon patient request if the prescription is for a schedule II opioid drug., 17 Gm By Mouth... Start Date: 12/06/20 Status: Ordered Pen [place], 31 G x 5 mm BD Ultra [...] 7:57:00 EDT, Route [facility] Electron[facility], [facility], Partial fill upon patient request if the prescription is for a... Start Date: 12/06/20 Status: Ordered Ventolin HFA 108 mcg/inh inhalation aerosol with adapter 1 puffs, Inhalation, 4 times a day, PRN for wheezing, # 18 Gm, 0 Refills, Maintenance, 07/17/20 13:36:00 EDT, Aerosol, [facility], Partial fill upon patient request [...] managed by her PCP located at [address] [place] [address]/currently on Metformin 500mg BID. MFM consult for glucose control placed. 2BHN consult placed Social History Social History Type Response Smoking Status Former smoker, quit more than 30 days ago entered on: 05/23/20 Sex
--- OUTSIDE RECORDS SUMMARY | 2023-10-28 16:09 | XMS_ITS | Continuity of Care Document ---
Author Organization [facility] Address [address] [place] [address]- Care Team Providers Care Dental Intern Name Role Phone Jaya JORDAN, Carmela Sanchez Primary Care Physician [phone] Encounter [facility] [place] Date(s): 11/09/20 - 12/15/[address] [address]- Attending Physician: Arabella Duffy DO Admitting Physician: Arabella Duffy DO Allergies, Adverse Reactions, Alerts Substance Reaction [...] Maintenance, 07/17/20 13:21:00 EDT, CR Tablet, [id number], Partial fill upon patient request if the prescription is for a scheduleII opioid drug. ACOG preE prophylaxis, 160.02, cm,... Start Date: 07/17/20 Stop Date: 01/13/21 Status: Ordered famotidine 10 mg oral tablet 1 tablet = 10 mg, By Mouth, 2 times a day, # 28 tablet, 0 Refills, Maintenance, 12/06/20 7:57:00 EDT, Tablet, [id number], Partial fill upon patient request if the prescription is for a schedule II opioid drug., 160, cm, 12/06/20 1:25:00 EDT,... Start Date: 12/06/20 Status: Ordered Flovent HFA 44 mcg/inh inhalation aerosol 2 puffs, Inhalation, 2 times a day, # 11 Gm, 0 Refills, Maintenance, 11/30/20 12:50:00 EDT, Aerosol, [id number], Partial fill upon patient request [...] BS 4 -6 x day Gestationa; diabetes 4MJY=427 test strips, 06/26/20 17:16:00 EST, Supply, 160.02, cm, 06/13/20 14:32:00 EST, Height Start Date: 06/26/20 Status: Ordered Humalog Kwik Pen 100 units/mL subcutaneous injection See Instructions, 60 ux with breakfast 54 ux with lunch 78 ux with dinner, # 15 mL, 5 Refills, Maintenance, 10/22/20 9:50:00 EDT, [id number], Partial fill upon patient request if the prescription is for a schedule II opioid drug., 160.02, c... Start Date: 10/22/20 Status: Ordered ibuprofen 600 mg oral tablet 600 mg, 1, tablet, By Mouth, 4 times a day, # 40 tablet, Refills 0, Tot. Refills 0, Maintenance, 12/06/20 7:58:00 EDT, Route to Pharmacy Electronically, [id number], Partial fill upon patientrequest if the prescription is for a schedule II op... Start Date: 12/06/20 Status: Ordered insulin lispro 100 u/ml subcutaneous injection = 8 units, Subcutaneous Infusion, 3 times a day before meals, Sliding scale 8 units for preprandial<150, 2 units additional for every 50 above 150., # 15 mL, 0 Refills, Maintenance, 12/06/20 8:13:00 EDT, [id number], Partial fill upon patien... Start Date: 12/06/20 Status: Ordered Lantus 100 u/ml subcutaneous solution = 30 units, Subcutaneous Injection, Daily, # 12 mL, 0 Refills, Maintenance, 12/06/20 8:11:00 EDT, Solution, [id number], Partial fill upon patient request if the prescription is for a schedule II opioid drug., 160, cm, 12/06/20 1:25:00 EDT, He... Start Date: 12/06/20 Status: Ordered Lantus Solostar Pen 100 units/mL subcutaneous solution 44 units in am and 100 units in pm, Subcutaneous Injection, Daily, # 12 mL, 6 Refills, Maintenance,09/10/20 15:08:00 EDT, [id number], Partial fill upon patient request if the prescription is for a schedule II opioid drug., 160.02, cm, 08/13/... Start Date: 09/10/20 Status: Ordered MiraLax oral powder for reconstitution = 17 Gm, By Mouth, Daily, dissolve in water before taking, # 255 Gm, 0 Refills, Maintenance, 12/06/20 7:57:00 EDT, REC Powder, [id number], Partial fill upon patient request [...] 7:57:00 EDT, Route to Pharmacy Electronically, [id number], Partial fill upon patient request, 160,... Start Date: 12/06/20 Stop Date: 12/27/20 Status: Ordered Pen [place], 31 G x 5 mm BD Ultra [...] 7:57:00 EDT, 12/06/20 7:57:00 EDT, Tablet, [id number], Partial fill upon patient request if the prescription is for a schedule... Start Date: 12/06/20 Stop Date: 12/22/20 Status: Ordered Tylenol 325 mg oral tablet 650 mg, 2, tablet, By Mouth, Every 4 hours, PRN, # 40 tablet, Refills 0, Tot. Refills 0, Maintenance, for pain, 12/06/20 7:57:00 EDT, Route to Pharmacy Electronically, [id number], Partial fill upon patient request if the prescription is for a... Start Date: 12/06/20 Status: Ordered Ventolin HFA 108 mcg/inh inhalation aerosol with adapter 1 puffs, Inhalation, 4 times a day, PRN for wheezing, # 18 Gm, 0 Refills, Maintenance, 07/17/20 13:36:00 EDT, Aerosol, [id number], Partial fill upon patient request [...] diabetes managed by her PCP located at [address] [place] [address]/currently on Metformin 500mg BID. MFM consult for glucose control placed. 2BHN consult placed Social History Social History Type Response Smoking Status Former smoker, quit more than 30 days ago entered on: 05/23/20 Sex
--- OUTSIDE RECORDS SUMMARY | 2023-10-28 16:09 | XMS_ITS | Continuity of Care Document ---
Author Organization [facility] Address [address] [place] [address]- Care Team Providers Care Wad Lubricator Name Role Phone Jaya JORDAN, Carmela Sanchez Primary Care Physician [phone] Encounter [facility] Date(s): 11/05/20 - 12/05/[address] [address]- Allergies, Adverse Reactions, Alerts Substance Reaction Severity [...] Maintenance, 07/17/20 13:21:00 EDT, CR Tablet, [id number], Partial fill upon patient request if the prescription is for a scheduleII opioid drug. ACOG preE prophylaxis, 160.02, cm,... Start Date: 07/17/20 Stop Date: 01/13/21 Status: Ordered Flovent HFA 44 mcg/inh inhalation aerosol 2 puffs, Inhalation, 2 times a day, # 11 Gm, 0 Refills, Maintenance, 11/30/20 12:50:00 EDT, [facility]erosol, [id number], Partial fill upon patient request if the prescription is for a schedule II opioid drug., 160.02, cm, 11/29/20 13:29:00 EDT, [place]... Start Date: 11/30/20 Status: Ordered Freestyle Lite [...] BS 4 -6 x day Gestationa; diabetes 5TSZ=763 test strips, 06/26/20 17:16:00 EST, Supply, 160.02, cm, 06/13/20 14:32:00 EST, Height Start Date: 06/26/20 Status: Ordered Humalog Kwik Pen 100 units/mL subcutaneous injection See Instructions, 60 ux with breakfast 54 ux with lunch 78 ux with dinner, # 15 mL, 5 Refills, Maintenance, 10/22/20 9:50:00 EDT, [id number], Partial fill upon patient request if the prescription is for a schedule II opioid drug., 160.02, c... Start Date: 10/22/20 Status: Ordered Lantus Solostar Pen 100 units/mL subcutaneous solution 44 units in am and 100 units in pm, Subcutaneous Injection, Daily, # 12 mL, 6 Refills, Maintenance,09/10/20 15:08:00 EDT, [id number], Partial fill upon patient request if the prescription is for a schedule II opioid drug., 160.02, cm, 08/13/... Start Date: 09/10/20 Status: Ordered Pen [place], 31 G x 5 mm BD Ultra [...] Refills, Maintenance, 07/17/20 13:36:00 EDT, [facility]erosol, [id number], Partial fill upon patient request [...] diabetes managed by her PCP located at [address] [place] [address]/currently on Metformin 500mg BID. MFM consult for glucose control placed. 2BHN consult placed Social History Social History Type Response Smoking Status Former smoker, quit more than 30 days ago entered on: 05/23/20 Sex
--- OUTSIDE RECORDS SUMMARY | 2023-10-28 16:09 | XMS_ITS | Continuity of Care Document ---
Author Organization [facility] Address [address] [place] [address]- Care Team Providers Care Pediatric Oncologist Name Role Phone Jaya JORDAN, Carmela Sanchez Primary Care Physician Encounter [facility] [place] Date(s): 08/13/20 - 11/07/[address] [address]- Attending Physician: Not on Staff, Attending MD [...] Maintenance, 07/17/20 13:21:00 EDT, CR Tablet, [id number], Partial fill upon patient request if the prescription is for a scheduleII opioid drug. ACOG preE prophylaxis, 160.02, cm,... Start Date: 07/17/20 Stop Date: 01/13/21 Status: Ordered Freestyle Lite Test Strips See Instructions, # 1 pack/packet, Refills 5, Tot. Refills 5, Maintenance, To test BS 4 -6 x day Gestationa; diabetes 6JQR=757 test strips, 06/26/20 17:16:00 EST, Supply, 160.02, cm, 06/13/20 14:32:00 EST, Height Start Date: 06/26/20 Status: Ordered Humalog Kwik Pen 100 units/mL subcutaneous injection See Instructions, 52 ux with breakfast 46 ux with lunch 68 ux with dinner, # 15 mL, 5 Refills, Maintenance, 10/22/20 9:50:00 EDT, [id number], Partial fill upon patient request if the prescription is for a schedule II opioid drug., 160.02, c... Start Date: 10/22/20 Status: Ordered Lantus Solostar Pen 100 units/mL subcutaneous solution 32 units in am and 90 units in pm, Subcutaneous Injection, Daily, # 12 mL, 6 Refills, Maintenance, 09/10/20 15:08:00 EDT, [id number], Partial fill upon patient request if the prescription isfor a schedule II opioid drug., 160.02, cm, ... Start Date: 09/10/20 Status: Ordered Pen [place], 31 G x 5 mm BD Ultra [...] Refills, Maintenance, 07/17/20 13:36:00 EDT, [facility]erosol, [id number], Partial fill upon patient request [...] managed by her PCP located at [address] [place] [address]/currently on Metformin 500mg BID. MFM consult for glucose control placed. 2BHN consult placed Social History Social History Type Response Smoking Status Former smoker, quit more than 30 days ago entered on: 05/23/20 Sex
--- OUTSIDE RECORDS SUMMARY | 2023-10-28 16:09 | XMS_ITS | Continuity of Care Document ---
Author Organization [facility] Address [address] [place] [address]- Care Team Providers Care Car Sales Representative Name Role Phone Jaya JORDAN, Carmela Sanchez Primary Care Physician Encounter [facility] Date(s): 05/29/20 - 06/28/[address] [address]- Allergies, Adverse Reactions, Alerts Substance Reaction Severity [...] BS 4 -6 x day Gestationa; diabetes 9WJS=289 test strips, 06/26/20 17:16:00 EST, Supply, 160.02, cm, 06/13/20 14:32:00 EST, Height Start Date: 06/26/20 Status: Ordered Humalog Kwik Pen 100 units/mL subcutaneous injection = 14 units, Subcutaneous Injection, 3 times a day before meals, # 15 mL, 5 Refills, Maintenance, 06/20/20 17:24:00 EST, [id number], Partial fill upon patient request [...] ES... Start Date: 06/13/20 Status: Ordered Pen [place], 31 G x 5 mm BD Ultra [...] managed by her PCP located at [address] [place] [address]/currently on Metformin 500mg BID. MFM consult for glucose control placed. 2BHN consult placed Social History Social History Type Response Smoking Status Former smoker, quit more than 30 days ago entered on: 05/23/20 Sex
[2023-10-28 16:23] LABS: Alanine Aminotransferase 13 U/L (0-31); Albumin Level 3.8 g/dL (3.5-5.0); Alkaline Phosphatase 54 U/L (39-117); Anion Gap 10 (12-20); Aspartate Amino Transferase 14 U/L (5-31); Bilirubin Direct 0.1 mg/dL (0.0-0.5); Bilirubin Total 0.5 mg/dL (0.0-1.0); Blood Urea Nitrogen 11 mg/dL (9-16); Calcium 8.6 mg/dL (8.4-10.2); Carbon Dioxide 23 mmol/L (22-29); Chloride 109 mmol/L (96-108); Creatinine Clr Calc Pharmacy 126.5; Estimated Glomerular Filt Rate > 60; Glucose Random 106 mg/dL (60-115); Lipase 38 U/L (8-78); Magnesium 1.9 mg/dL (1.6-2.6); Sodium 138 mmol/L (135-145)
[2023-10-28 16:28] LABS: Troponin-I High Sensitivity < 2.7 ng/L (<3.5-17.0)
== END 2023-10-28 21:19 | disposition left against medical advice (07) ==
PROVIDERS: Physician Assistant Medical; Emergency Provider Emergency Medicine; PCP Internal Medicine
DX: R07.89 Other chest pain (principal); Z79.899 Other long term (current) drug therapy
CPT/HCPCS: 36415; 71046; 80048; 80076; 83690; 83735; 84484; 85025; 93005; 99283

== ENCOUNTER → 2023-10-28 13:45 | Outpatient (BNV) | payer OTHER, SELFPAY | PROVIDERS: Emergency Provider Emergency Medicine; PCP Internal Medicine; Visit Provider Internal Medicine Cardiovascular Disease | DX: R07.9 Chest pain, unspecified (principal) | CPT/HCPCS: 93010 ==

== ENCOUNTER 2024-05-27 15:49 | Emergency (ER) | payer OTHER, SELFPAY ==
--- NOTE | ~2024-05-27 | XR_ITS ---
EXAMINATION: XR CHEST CLINICAL INFORMATION: cough COMPARISON: None available. TECHNIQUE: 2 views of the chest were obtained. FINDINGS: The cardiac, hilar, and mediastinal contours are normal. The lungs are clear bilaterally. There is no pneumothorax or pleural effusion. There is no focal osseous or soft tissue abnormality. XR/XR chest 2V IMPRESSION: Normal chest. Electronically signed by: Tripp Lane MD 05/27/2024 04:31 PM [facility]
[2024-05-27 15:52] VITALS: BP 140/73; PULSE 71; RESP 18; TEMP 36.6; O2SAT 98; BMI 41.3
[2024-05-27 16:52] LABS: Influenza A PCR POSITIVE (Negative); Influenza B PCR NEGATIVE (Negative); Resp Syncy Virus RNA Qual PCR NEGATIVE (Negative); SARS COV2 PCR INHOUSE NEGATIVE (Negative)
--- NOTE | 2024-05-27 18:04 | ED.URI ---
HPI - URI/Sore Throat General Chief Complaint: Upper Respiratory Symptoms Stated Complaint: Flu symptoms Time Seen by Provider: 05/27/24 18:03 Source: patient Mode of arrival: ambulatory Limitations: no limitations History of Present Illness HPI Narrative: Patient is a 39-year-old female presents emergency department for evaluation of viral type symptoms onset 5 days ago including intermittent headache, dizziness, body aches, fatigue, nonproductive cough. Has associated cold sores on the lip which she has had in the past, has been using OTC Abreva with good relief. Her children have become ill with similar symptoms since yesterday. Denies fevers, chills, neck pain, neck stiffness, chest pain, shortness of breath, difficulty breathing, sore throat, nausea, vomiting, abdominal pain, numbness or tingling of the extremities, genitourinary symptoms. Related Data Home Medications ?Medication ?Instructions ?Recorded ?Confirmed ibuprofen 800 mg tablet 800 mg PO Q8H 01/31/20 01/31/20 Previous Rx's ?Medication ?Instructions ?Recorded nystatin 100,000 unit/gram topical 1 applic topical BID #15 grams 01/31/20 ointment nystatin 100,000 unit/gram topical 1 applic topical BID 14 days #15 01/31/20 powder grams Allergies Allergy/AdvReac Type Severity Reaction Status Date / Time No Known Allergies Allergy Verified 05/27/24 15:55 [No Known Allergies*] Review of Systems Review of Systems: Yes all other systems are reviewed and are negative PMFSH Past Medical History Attestation statement: The following information was validated with the patient. Source: old records reviewed Medical History Cellulitis of labia majora Morbid obesity with BMI of 45.0-49.9, adult Pre-diabetes Yeast infection involving the vagina and surrounding area Yeast infection of the skin Surgical History History of Family History Family History Maternal Aunt Breast cancer Social History Social History Alcohol intake: never Sexual orientation: Straight/Heterosexual Gender identity: Female Physical Exam Vital Signs: Vital Signs: Last Vital Signs Temp 98 F 05/27/24 15:52 Pulse 71 05/27/24 15:52 Resp 18 05/27/24 15:52 BP 140/73 H 05/27/24 15:52 Pulse Ox 98 05/27/24 15:52 BMI result Body Mass Index 41.3 Appearance: Alert.?Oriented to person, place and time. No acute distress.?Normal affect. Eyes: Pupils equal, round and reactive to light.? ENT: TM normal bilaterally. Pharynx normal.? Vesicular erythematous lesions to the left lower lip along the vermilion border. No intraoral lesions. ? Neck: Normal inspection.? Neck supple.??No cervical adenopathy CVS: Heart sounds normal. Normal heart rate and rhythm.? Pulses normal.?? Respiratory: No respiratory distress.? Lung sounds clear to auscultation bilaterally?? Abdomen: Soft and non-tender. Normoactive bowel sounds. Skin: Skin warm and dry.? Normal skin color.? ? Extremities: No lower extremity edema.? Neuro: Moves all extremities spontaneously. Sensation intact bilaterally. No motor deficits. Ambulates with normal steady gait. Medical Decision Making Medical Decision Making MDM Narrative: Patient is a 39-year-old female history of diabetes, presenting for evaluation of viral symptoms as per HPI. COVID-19/influenza B/RSV testing negative. Influenza A positive, given duration since onset she is out of the initiation window for Tamiflu. She does endorse having associated headache and intermittent dizziness on evaluation she has no nuchal rigidity, no meningismus, not consistent with meningitis. CXR is without consolidation or infiltrate to suggest pneumonia. No associated chest pain, not consistent with ACS/PE. She does admit to having cold sore on her lip for which has been using OTC Abreva, it is helpful for the pain has significantly decreased the redness to the area, has a history of similar in the past when ill. Well-appearing, nontoxic, afebrile, no tachycardia or tachypnea/hypoxia. Speaking clear full sentences, ambulatory with steady gait. Discussed conservative treatment including rest, hydration, Tylenol/ibuprofen as needed for fever and body aches, saline nasal spray, humidifier, lkjl-ioo-kiyzbnd cold medication. Advised to follow-up with primary care provider as needed, discussed reasons to return back to the emergency department. All questions were answered. Patient discharged home in stable condition. Provided with a return to work/school note. Differential Diagnosis Differential Diagnoses: The differential diagnosis associated with the presentation includes ( See narrative above) Admission/Observation Consideration of admission/observation: Escalation of care including admission/observation considered ( see narrative above) Lab Data MDM Lab Attestation statement: I reviewed the patient's lab results. ( see narrative above) Labs: Lab Results 05/27/24 Range/Units 16:10 Influenza Type A (PCR) POSITIVE A (Negative) Influenza Type B (PCR) NEGATIVE (Negative) RSV RNA Qual (PCR) NEGATIVE (Negative) SARS-CoV-2 RNA (RT-PCR) NEGATIVE (Negative) Independent Interpretation I performed an independent interpretation of an: Plain X-Ray (See narrative above) Radiology Impression Discussion of test interpretation with radiology: I have reviewed the radiologist's reading. Radiologist Impression: XR/XR chest 2V IMPRESSION: Normal chest. Prescription Management I considered prescription management with: Pain Medication ( acetaminophen/ibuprofen) and Antiviral (See narrative above) Discharge Plan Discharge Clinical Impression: Influenza, Herpes labialis Patient Disposition: Home, Self-Care Instructions: Influenza (ED), Oral Herpes Simplex Virus Infections (ED) Additional Instructions: Be sure to rest, stay well hydrated drinking plenty of fluids, eat small frequent meals. Tylenol/ibuprofen can be used as needed for fever/pain. Iguu-xdv-hnmgvpy cold medications may be helpful as well for symptoms. Saline nasal spray, humidifier may be helpful for nasal congestion. Continue using the Abreva that you purchased [id number] to the mouth lesions to help alleviate pain. You may return to the emergency department with any new or worsening symptoms or concerns. Follow-up with your primary care provider as needed. Should remain out of school/ work until symptoms have resolved and have been without a fever for 24 hours without the use of Tylenol or ibuprofen. Prescriptions: No Action ibuprofen 800 mg tablet 800 mg PO Q8H nystatin 100,000 unit/gram powder 1 applic topical BID 14 Days Qty: 15 1RF nystatin 100,000 unit/gram ointment 1 applic topical BID Qty: 15 1RF Referrals: Carmela Lake MD [Primary Care Provider] - Print Language: Divehi
--- OUTSIDE RECORDS SUMMARY | 2024-05-27 18:10 | XMS_ITS | Encounter Summary ---
Author Organization [facility] Address [address] [place] [address] Care Team Providers Care Maintenance Millwright Name Role Phone Carmela Lake MD Primary Care Provider Reason for Visit * Reason Onset Date Comments Breast Pain 05/02/2024 Encounter Details Date Type Department Care Team ([facility] st Contact Info) Description 05/02/2024 Telephone Internal Medicine - [place] [address] [place] [address] Carmela Lake MD [address] [place] [phone] Breast Pain Social History Tobacco Use Types Packs/Day Years Used Date Smoking Tobacco: Some Days Smokeless Tobacco: Never Alcohol Use Standard Drinks/Week Comments Yes 0 (1 standard drink = 0.6 oz pur e alcohol) Sex and Gender Information Value Date Recorded Sex Assigned at Not on file Gender Identity Not on file Sexual Orientation Not on file Job Start Date Occupation Industry Not on file Not on file Not on file documented as of this encounter Progress Notes * Arabella Reno RN - 2024 9:29 AM EST Pt called back, spoke w/ the pt. Pt having symptoms for 1 week, is having pain in the left breast when she is pressing on the area. She says she does sleep a lot on the left side. Says she has not been to the doctor in a long time and wants to get checked. She says sometimes she gets bumps in her breasts due to fat, has large breasts. Then she says the painful area is more directly on her chest instead of on her breasts. Feels like maybe a tight muscle. Yesterday says she had a small difficulty time breathing, ok today. Is nothaving pain now unless pressing on the area. No other symptoms noted by the pt. Can't come for appt today due to transport. Booked for tomorrow elif/ Cinthya. In meantime if having severe pain or severe difficulty breathing, radiation of pain, dizziness, etc. Should go to ER. Otherwise if no change will have appt tomorrow. Pt states understanding. Will call back if any change to condition. * Arabella Reno RN - 2024 9:11 AM EST Call to pt # [phone], left message for pt to call us back 2nd outreach to the pt * Mary Avila RN - 05/02/2024 1:47 PM EST Call to pt # [phone], left message to call back * Sussy Tong - 05/02/2024 11:55 AM EST Patient called and stated that she is having pain in the left breast for about a week and she wouldlike to make sure it is normal because she feels a bump on her chest not on her breast but it is bothersome. Please advise Cb# [phone] documented in this encounter Plan of Treatment Upcoming Encounters Date Type Department Care Team (Late st Contact Info) Description 06/02/2024 2:15 PM EST Office Visit Internal Medicine - [place] [address] [facility] [address] [facility] [address] [facility] [address] [place] [address] Cinthya Cross, DIAMOND [address] [place] [address] 06/07/2024 2:20 PM EST Office Visit Endocrinology - [place] [address] [place] [address] Mamie Eaton PA [address] [place] [address] 07/11/2024 2:15 PM EDT Office Visit Internal Medicine - [place] [address] [phone] Cinthya Cross NP [address] [address] documented as of this encounter Visit Diagnoses Not on filedocumented in this encounter Care Teams Maintenance Millwright Relationship Specialty Start Date End Date Carmela Lake MD [address] [phone] PCP - General Internal Medicine 03/05/18 documented as of this encounter
--- OUTSIDE RECORDS SUMMARY | 2024-05-27 18:10 | XMS_ITS | Encounter Summary ---
Author Organization [facility] Address [address] [place] [address] Care Team Providers Care Permit Technician Name Role Phone Carmela Lake MD Primary Care Provider [phone] Reason for Visit * Reason Onset Date Comments Medication Reaction 04/01/2024 Encounter Details Date Type Department Care Team (Late st Contact Info) Description 04/01/2024 Telephone Endocrinology - [place] [address] [place], [place] [phone] Mamie Eaton PA [address] [place], [place] Medication Reaction Social History Tobacco Use Types Packs/Day Years [...] as of this encounter Progress Notes * Richa Rojas RN - 04/01/2024 4:16 PM EST Called and spoke with patient YAZ 06/02/23 NOV 05/16/[address] has been on Ozempic 0.25 mg x 1 year + weight loss Pt is also co depression/hair loss with starting this medication Pt has intermittent nausea and diarrhea with abd pain Pt stopped med x 1 week with resolution of symptoms Pt is not checking BS at this time Pt will go and get batteries for glucometer and check BS Please advise * Destiny Lamas - 04/01/2024 11:50 AM EST Patient is having nausea,diarrhea and sharp pains in her stomach while taking the ozempic. Please call her back at [phone] to discuss an alternative documented in this encounter Plan of Treatment Upcoming Encounters Date Type Department Care Team (Late st Contact Info) Description 06/02/2024 2:15 PM EST Office Visit Internal Medicine - [place] [address] [phone] Cinthya Cross NP [address] [address] 06/07/2024 2:20 PM EST Office Visit Endocrinology [facility] [address] [place] [address] Mamie Eaton PA [address] [place] [address] 07/11/2024 2:15 PM EDT Office Visit Internal Medicine [facility] [address] [phone] Cinthya Cross NP [address] [address] documented as of this encounter Visit Diagnoses Not on filedocumented in this encounter Care Teams Permit Technician Relationship Specialty Start Date End Date Carmela Lake MD [address] [phone] PCP - General Internal Medicine 03/05/18 documented as of this encounter
--- OUTSIDE RECORDS SUMMARY | 2024-05-27 18:11 | XMS_ITS | Encounter Summary ---
Author Organization [employer] Address [address] [place] [address] Care Team Providers Care Service Supervisor Name Role Phone Carmela Lake MD Primary Care Provider [phone] Reason for Visit * Reason Comments Follow-up Breast Pain States she has been having pain in the breast for 1 week Encounter Details Date Type Department Care Team ([facility] st Contact Info) Description 05/05/2024 3:00 PM EST Office Visit Internal Medicine - [place] [address] [place] [phone] Cinthya Cross NP [address] [place] [address] Muscle spasm (Primary Dx); Type 2 diabetes mellitus with hyperglycemia, without long-term current use of insulin (CMS/HCC); Class 3 severe obesity with serious comorbidity and body mass index (BMI) of 40.0 to 44.9 in adult, unspecified obesity type (CMS/HCC); Anxiety and depression; Gastroesophageal reflux disease, unspecified whether esophagitis present; Vitamin D deficiency Social History Tobacco Use Types Packs/Day Years [...] on file documented as of this encounter Last Filed Vital Signs Vital Sign Reading Time Taken Comments Blood Pressure 128/80 05/05/2024 2:42 PM EST Pulse 86 05/05/2024 2:42 PM EST Temperature 36.9 ??C (98.4 ??F) 05/05/2024 2:42 PM ES T Respiratory Rate - - Oxygen Saturation 98% 05/05/2024 2:42 PM EST Inhaled Oxygen Concentration - - Weight 106 kg (233 lb) 05/05/2024 2:42 PM EST Height 160 cm (5' 3 ) 05/05/2024 2:42 PM EST Body Mass Index 41.27 05/05/2024 2:42 PM EST documented in this encounter Ordered Prescriptions Prescription Sig Dispensed Refills Start Date End Da te citalopram (CeleXA) 10 mg tabletIndications:Anxiety and depression Take 1 tablet by mouth at bedtime for the first 7 days. Then increase to 2 tablets at bedtime onwards. 60 each 2 05/05/2024 citalopram (CeleXA) 10 mg tabletIndications:Anxiety and depression Take 1 tablet by mouth at bedtime for the first 7 days. Then increase to 2 tablets at bedtime onwards. 30 each 5 05/05/2024 05/05/2024 documented in this encounter Progress Notes * Cinthya Cross NP - 05/05/2024 3:00 PM EST Lab is located on the first floor, [address]. Hours: Mon-Fri 7:30am-4pm. Please come on an empty stomache, you may drink water with your morning medications and coffee/tea without milk or sugar. * Cinthya Cross NP - 05/05/2024 3:00 PM EST CHIEF COMPLAINT: Follow-up and Breast Pain (States she has been having pain in the breast for 1 week ) IDENTIFIER: Joanna Coleman is a 39 y.o. old female. History of Present Illness HPI: Depression, GERD, insomnia, T2DM, vitamin D deficiency, class III obesity. Joanna is a 39-year-old female who presents for evaluation of chest pain, weight management, and depression. She reports experiencing pain on the left side of her chest for 1 week, which feels like a muscle spasm. The pain is not localized to her breast but rather the surrounding area above on her left pectoral muscle. She thinks that the pain could be due to gas or muscle strain. Endorsed that the pain is less severe than it was two days prior. She has been using Vicks to manage her chest pain, which she finds helpful. She declines the use of a muscle relaxer due to concerns about potential addiction. She has been off Ozempic for a month due to side effects such as stomach pain, diarrhea, and vomiting. She was on 1 mg of Ozempic last year, which she found too much. She has an appointment with circulation tender, Dr. Mamie Eaton, on 05/16/2024. Endorses difficulty managing her lower abdomen, due to excess skin and weight. She has been advised to lose weight before qualifying for a panniculectomy. She experiences fungal rashes underneath her skin folds, which she manages with frequent showers andthe application of powder, lotion, or Vaseline. She has been dealing with significant stress for several years, which she believes may be contributing to her chest pain. She is currently suffering from depression and was previously prescribed Zoloft, but is unsure if the medication was effective. Endorses smoking marijuana to help manage her stress and relax her mind. She has recently started smoking cigarettes again, consuming a pack every three days. ROS: See HPI. 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 SOCIAL HISTORY: Social History Tobacco Use Smoking status: Some Days Smokeless tobacco: Never Substance Use Topics Alcohol use: Yes FAMILY HISTORY: No family history on file. No family status information on file. MEDICATIONS DISCONTINUED/REORDERED: Medications Discontinued During This Encounter Medication Reason citalopram (CeleXA) 10 mg tablet ACTIVE MEDICATIONS: Outpatient Medications Marked as Taking for the 05/05/24 encounter (Office Visit) with Cinthya Cross NP Medication Sig Dispense Refill acetaminophen (TYLENOL) 500 mg tablet Take 1 Tablet by mouth every 6 hours as needed for Pain. citalopram (CeleXA) 10 mg tablet Take 1 tablet by mouth at bedtime for the first 7 days. Then increase to 2 tablets at bedtime onwards. 60 each 2 omeprazole (PriLOSEC) [address] capsule TAKE 1 CAPSULE BY MOUTH EVERY DAY 90 capsule 2 semaglutide (Ozempic) 0.25 mg or 0.5 mg(2 mg/1.5 mL) injection pen Inject 0.25 mg into the skin once a week. ALLERGIES: Allergies Allergen Reactions Dulaglutide Metformin PHYSICAL EXAM: Visit Vitals BP 128/80 (BP Location: Left arm, Patient Position: Sitting, BP Cuff Size: Adult) Pulse 86 Temp 36.9 ??C (98.4 ??F) (Temporal) Ht 1.6 m (63 ) Wt 106 kg (233 lb) SpO2 98% BMI 41.27 kg/m?? Smoking Status Some Days BSA 2.07 m?? Physical Exam Constitutional: Appearance: Normal appearance. Cardiovascular: Rate and Rhythm: Normal rate and regular rhythm. Pulses: Normal pulses. Heart sounds: Normal heart sounds. Pulmonary: Effort: Pulmonary effort is normal. Breath sounds: Normal breath sounds. Chest: Chest wall: Tenderness (Left pectoral muscle upon palpation) present. No mass, deformity, swelling or edema. Neurological: General: No focal deficit present. Mental Status: She is alert and oriented to person, place, and time. Psychiatric: Mood and Affect: Mood normal. Behavior: Behavior normal. LABS/IMAGING: Abstract on 03/16/2024 Component Date Value Ref Range Status Annual BMP Blood Test 01/12/2024 abstracted Final Pap smear 01/11/2019 abstracted, no interpretation Final Urine Albumin Creatinine Ratio 01/12/2024 abstracted Final LDL/HDL Ratio 01/27/2023 5 (A) 0 - 4 Final Triglycerides 01/27/2023 158 (A) 0 - 150 mg/dL Final Cholesterol 01/27/2023 198 0 - 200 mg/dL Final HDL 01/27/2023 41 40 mg/dL Final LDL Cholesterol 01/27/2023 126 (A) 0 - 100 mg/dL Final Hemoglobin A1C 01/12/2024 5.8 6.5 % Final Results Laboratory Studies A1c from December was 5.8. IMPRESSION: 1. Muscle spasm 2. Type 2 diabetes mellitus with hyperglycemia, without long-term current use of insulin ([facility]) 3. Class 3 severe obesity with serious comorbidity and body mass index (BMI) of 40.0 to 44.9 in adult, unspecified obesity type (CMS/HCC) 4. Anxiety and depression 5. Gastroesophageal reflux disease, unspecified whether esophagitis present 6. Vitamin D deficiency PLAN: 1. Muscle spasm 2. Type 2 diabetes mellitus with hyperglycemia, without long-term current use of insulin ([facility]) Complete blood count Comprehensive metabolic panel Hemoglobin A1c Thyroid stimulating hormone 3. Class 3 severe obesity with serious comorbidity and body mass index (BMI) of 40.0 to 44.9 in adult, unspecified obesity type (CMS/HCC) 4. Anxiety and depression citalopram (CeleXA) 10 mg tablet DISCONTINUED: citalopram (CeleXA) 10 mg tablet 5. Gastroesophageal reflux disease, unspecified whether esophagitis present Lipid panel with reflexto direct LDL 6. Vitamin D deficiency Vitamin D 25 hydroxy Assessment & Plan 1. Muscle spasm of the chest - Declined muscle relaxers at this time. - Continue massaging with Vicks for topical relief 2. T2DM, BMI 41.27 - A1c level from December 2023 was within the normal range at 5.8. - Advised to consider starting Mounjaro for diabetes and weight loss, with a recommendation to maintain a medium dose to mitigate potential side effects. Recommend further discussing Mounjaro with her circulation tender during their upcoming appointment on 05/16/2024 -Will check CBC, CMP, A1c, TSH, lipid panel. 3. Depression - Prescribed Celexa 10 mg, to be taken at bedtime for the first week, with an increase to 20 mg thereafter. - She has been informed about the potential side effects of Celexa, including drowsiness and brain fog, which may resolve after the first month of use. 4. GERD - Experiences occasional flareups. Continue Prilosec 20 mg daily. 5. Vitamin D deficiency - Will check vitamin D serum levels. Follow-up - Recommend follow-up visit in 1 month for Celexa Advised the patient to call me if any problems. Patient understands the plan. Patient is in agreement with the plan. I have obtained verbal consent from Joanna Coleman prior to the recording. I have advised Joanna Coleman that she may refuse the recording and require the recording to be turned off at any time during this encounter. Cinthya Cross NP on 05/05/2024 at 4:58 PM EST documented in this encounter Plan of Treatment Upcoming Encounters Date Type Department Care Team (Late st Contact Info) Description 06/02/2024 2:15 PM EST Office Visit Internal Medicine - [place] [address] [phone] Cinthya Cross NP [address] [address] 06/07/2024 2:20 PM EST Office Visit Endocrinology [facility] [address] [place] [phone] Mamie Eaton PA [address] [place] [address] 07/11/2024 2:15 PM EDT Office Visit Internal Medicine [facility] [address] [phone] Cinthya Cross NP [address] [address] Scheduled Orders Name Type Priority Associated Diagnoses Orde r Schedule Lipid panel with reflex to direct LDL Lab Routine Gastroesophageal reflux disease, unspecified whether esophagitis present 1 Occurrences starting 05/05/2024 until 05/05/2025 Complete blood count Lab Routine Type 2 diabetes mellitus with hyperglycemia, without long-term current use of insulin ([facility]) Expected: 05/05/2024, Expires: 05/05/2025 Comprehensive metabolic panel Lab Routine Type 2 diabetes mellitus with hyperglycemia, without long-term current use of insulin ([facility]) Expected: 05/05/2024, Expires: 05/05/2025 Hemoglobin A1c Lab Routine Type 2 diabetes mellitus with hyperglycemia, without long-term current use of insulin ([facility]) Expected: 05/05/2024, Expires: 05/05/2025 Thyroid stimulating hormone Lab Routine Type 2 diabetes mellitus with hyperglycemia, without long-term current use of insulin ([facility]) Expected: 05/05/2024, Expires: 06/05/2024 Vitamin D 25 hydroxy Lab Routine Vitamin D deficiency 1 Occurrences starting 05/05/2024 until 05/05/2025 documented as of this encounter Visit Diagnoses Diagnosis Muscle spasm- Primary Spasm of muscle Type 2 diabetes mellitus with hyperglycemia, without long-term current use of insulin ([facility]) Class 3 severe obesity with serious comorbidity and body mass index (BMI) of 40.0 to 44.9 in adult, unspecified obesity type ([facility]) Anxiety and depression Gastroesophageal reflux disease, unspecified whether esophagitis present Vitamin D deficiency documented in this encounter Discontinued Medications Medication Sig Discontinue Reason Start Date End Da te citalopram (CeleXA) 10 mg tabletIndications:Anxie ty and depression Take 1 tablet by mouth at bedtime for the first 7 days. Then increase to 2 tablets at bedtime onwards. 05/05/2024 05/05/2024 documented as of this encounter Care Teams Service Supervisor Relationship Specialty Start Date End Date Carmela Lake MD [address] [place] [phone] PCP - General Internal Medicine 03/05/18 documented as of this encounter
--- OUTSIDE RECORDS SUMMARY | 2024-05-27 18:11 | XMS_ITS | Encounter Summary ---
Author Organization [employer] Address [address] [place] [address] Care Team Providers Care Graphic Illustrator Name Role Phone Carmela Lake MD Primary Care Provider [phone] Reason for Visit * Reason Onset Date Comments Flu Symptoms 05/27/2024 Encounter Details Date Type Department Care Team ([facility] st Contact Info) Description 05/27/2024 Telephone Internal Medicine - [place] [address] [place] [address] Carmela Lake MD [address] [place] [phone] Flu Symptoms Social History Tobacco Use Types Packs/Day Years [...] as of this encounter Progress Notes * Mary Avila RN - 05/27/2024 2:37 PM EST Call to pt # [phone], spoke to pt Pt reports chest pain, coughing, wheezing, headaches, dizziness, fever, cold sores on her lip, nauseas, and diarrhea x 1 week. OTC medications not helping. Pt can not make it to the office for a visit due to transportation restrictions. Pt [place] [facility] Advised pt to go there for treatment. Pt understands and agrees with plan. * Sussy Tong - 05/27/2024 2:27 PM EST Patient called and requested a phone call appt because she has been extremely sick since Thursday sheis having chest pain, coughing, wheezing, headaches, dizziness, fever, cold sores on her lip, nauseas, and diarrhea and she would yovani to know if she should go to the ER because no over the counter medication is helping and she is very shaky because she is a diabetic as well. Has not had any testing. Please advise Cb# [phone] documented in this encounter Plan of Treatment Upcoming Encounters Date Type Department Care Team (Late st Contact Info) Description 06/02/2024 2:15 PM EST Office Visit Internal Medicine - [address] [phone] Cinthya Cross NP [address] [address] 06/07/2024 2:20 PM EST Office Visit Endocrinology - [address] [phone] Mamie Eaton PA [address] [place] [address] 07/11/2024 2:15 PM EDT Office Visit Internal Medicine - [address] [phone] Cinthya Cross NP [address] [address] documented as of this encounter Visit Diagnoses Not on filedocumented in this encounter Care Teams Graphic Illustrator Relationship Specialty Start Date End Date Carmela Lake MD [address] [phone] PCP - General Internal Medicine 03/05/18 documented as of this encounter
--- OUTSIDE RECORDS SUMMARY | 2024-05-27 18:11 | XMS_ITS | Clinical Summary ---
Author Organization 175 [facility] Address [address] [place] [address] Phone Care Team Providers Care Roller Shop Utility Worker Name Role Phone Carmela Lake MD Primary Care Provider [phone] Allergies Active Allergy Reactions Criticality Noted Date Comments Dulaglutide 02/10/2022 Metformin 10/15/2021 Medications Medication Sig Dispensed Refills Start Date End Date Status acetaminophen (TYLENOL) 500 mg tablet Take 1 Tablet by mouth every 6 hours as needed for Pain. 12/17/2023 Active semaglutide (Ozempic) 0.25 mg or 0.5 mg(2 mg/1.5 mL) injection pen Inject 0.25 mg into the skin once a week. 12/16/2023 Active omeprazole (PriLOSEC) [address] capsule TAKE 1 CAPSULE BY MOUTH EVERY DAY 90 capsule 2 03/18/2024 Active citalopram (CeleXA) 10 mg tabletIndication s:Anxiety and depression Take 1 tablet by mouth at bedtime for the first 7 days. Then increase to 2 tablets at bedtime onwards. 60 each 2 05/05/2024 Active citalopram (CeleXA) 10 mg tabletIndication s:Anxiety and depression Take 1 tablet by mouth at bedtime for the first 7 days. Then increase to 2 tablets at bedtime onwards. 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 Vitamin D deficiency 07/31/2016 Depression 07/16/2016 GERD (gastroesophageal reflux disease) 6 Insomnia 05/11/2015 Encounters Date Type Department Care Team Description 05/27/2024 Telephone Internal Medicine - [place] [address] [phone] Carmela Lake MD Flu Symptoms 05/05/2024 3:00 PM EST Office Visit Internal Medicine [facility] [address] [phone] Cinthya Cross NP Muscle spasm (Primary Dx); Type 2 diabetes mellitus with hyperglycemia, without long-term current use of insulin ([facility]); Class 3 severe obesity with serious comorbidity and body mass index (BMI) of 40.0 to 44.9 in adult, unspecified obesity type ([facility]); Anxiety and depression; Gastroesophageal reflux disease, unspecified whether esophagitis present; Vitamin D deficiency 05/02/2024 Telephone Internal Medicine [facility] [address] [phone] Carmela Lake MD Breast Pain 04/01/2024 Telephone Endocrinology - [address] [phone] Mamie Eaton PA Medication Reaction 03/28/2024 Telephone Endocrinology - [address] [phone] Mamie Eaton PA Lab Results (Patient is checking status of labs drawn in January) from Last 3 Months Immunizations Name Administration Dates Next Due Influenza Quadravalent, MDCK , 0.5ml, preservative free (Flucelvax) 6mo and older 01/15/2019 Medical History Medical History Date Comments 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:Naik's palsy Depression 07/16/2016 DX:Depression GERD (gastroesophageal reflux disease) 02/22/2016 DX:GERD (gastroesophageal reflux disease) History of migraine 11/25/2016 DX:History o f migraine Insomnia 05/11/2015 DX:Insomnia Morbid obesity with BMI of 4 5.0-49.9, adult ([facility]) 05/28/2018 DX:Morbid obesity with BMI o f 45.0-49.9, adult (HCC) Vitamin D deficiency 07/31/2016 DX:Vitamin D deficiency Prediabetes 08/26/2018 DX:Prediabetes Social History Tobacco Use Types Packs/Day Years [...] file Not on file Not on file Obstetrics History Last Filed Vital Signs Vital Sign Reading [...] Mass Index 41.27 05/05/2024 2:42 PM EST Plan of Treatment Upcoming Encounters Date Type Department Care Team (Late st Contact Info) Description 06/02/2024 2:15 PM EST Office Visit Internal Medicine - [address] [phone] Cinthya Cross NP [address] [address] 06/07/2024 2:20 PM EST Office Visit Endocrinology [address] [phone] Mamie Eaton PA [address] [place] [phone] 07/11/2024 2:15 PM EDT Office Visit Internal Medicine [facility] [address] [phone] Cinthya Cross NP [address] [place] [address] Health Maintenance Due Date Last Done Comments Pneumococcal Vaccine: Pediatrics (0 to 5 Years) and At-Risk Patients (6 to 64 Years) (1 of 2 - PCV) 1991 Diabetes: Annual Foot Exam 1995 Diabetes: Annual Retina Eye Exam 1995 Hepatitis B Vaccines (1 of 3 - 19+ 3-dose series) 2004 HPV Vaccines (3 - 3-dose series) 09/14/2012 06/22/2012, 11/04/2010 Cervical Cancer Screening: Pap Smear 01/11/2022 01/11/2019 Depression Screening 03/29/2022 HIV Screening 03/29/2022 Hepatitis C Screening 03/29/2022 Social Influencers of Health Screening 03/29/2022 COVID-19 Vaccine ( season) 2023 09/11/2020, 08/14/2020, 08/14/2020 Influenza Vaccine (#1) 2023 , 01/04/2022, 02/28/2021, Additional history exists Diabetes: Blood Sugar Control Test (HGBA1C) 07/11/2024 01/12/2024, 01/12/2024 Diabetes: Annual Urine Albumin-Creatinine Ratio (uACR) 01/11/2025 01/12/2024 Diabetes: Annual GFR (Glomerular Filtration Rate) 01/11/2025 01/12/2024, 01/12/2024 Cholesterol Screening (Lipid Panel) 01/28/2028 01/27/2023 DTaP,Tdap,and Td Vaccines (3 - Td or Tdap) 10/04/2030 10/04/2020, 06/15/2013 HIB Vaccines Aged Out No longer eligi ble based on patient's age to complete this topic Hepatitis A Vaccines Aged Out No long er eligible based on patient's age to complete this topic IPV Vaccines Aged Out No longer eligi ble based on patient's age to complete this topic MMR Vaccines Aged Out No longer eligi ble based on patient's age to complete this topic Meningococcal ACWY Vaccine Aged Out N o longer eligible based on patient's age to complete this topic RSV Immunization Patients Under 20 months Aged Out No longer eligible based on patient's age to complete this topic Varicella Vaccines Aged Out No longer eligible based on patient's age to complete this topic Procedures Procedure Name Priority Date/Time Associated Diagnosis Comments URINE ALBUMIN CREATININE RATIO Routine 01/12/2024 ANNUAL BMP BLOOD TEST Routine 01/12/2024 HEMOGLOBIN A1C Routine 01/12/2024 LIPID PANEL Routine 01/27/2023 PAP SMEAR Routine 01/11/2019 from Last 3 Months or Most Recently Relevant to Health Maintenance Results * Urine Albumin Creatinine Ratio (01/12/2024) Pathologist [facility] Urine Albumin Creatinine Ratio abstracted Historical Provider MD SANDERS [employer] bake[employer]SELLE E * Annual BMP Blood Test (01/12/2024) Pathologist [facility] Annual BMP Blood Test abstracted Historical Provider MD SANDERS [employer] you bake[employer]LE E * Hemoglobin A1c (01/12/2024) [facility] Hemoglobin A1C 5.8 6.5 % Blood Venous blood specimen / Unknown Historical Provider LAB BLOOD ORDERAB LES * (ABNORMAL) Lipid panel (01/27/2023) Pathologist [facility] LDL/HDL Ratio 5(A) 0 - 4 Triglycerides 158(A) 0 - 150 mg/dL Cholesterol 198 0 - 200 mg/dL HDL 41 40 mg/dL LDL Cholesterol 126(A) 0 - 100 mg/dL Blood Venous blood specimen / Unknown Historical Provider LAB BLOOD ORDERAB LES * Pap Smear (01/11/2019) Pathologist [facility] Pap smear abstracted, no interpretation Historical Provider [facility] [place] from Last 3 Months or Most Recently Relevant to Health Maintenance Advance Directives Documents on File Type Date Recorded 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
[2024-05-27 19:09] VITALS: BP 140/73; PULSE 71; RESP 18; TEMP 36.6; O2SAT 98
== END 2024-05-27 19:09 | disposition home or self-care (01) ==
PROVIDERS: Emergency Provider Emergency Medicine; PCP Internal Medicine
DX: J10.1 Influenza due to other identified influenza virus with other respiratory manifestations (principal); B00.1 Herpesviral vesicular dermatitis; R51.9 Headache, unspecified; M79.10 Myalgia, unspecified site; R05.9 Cough, unspecified; Z03.818 Encounter for observation for suspected exposure to other biological agents ruled out
CPT/HCPCS: 0241U; 71046; 99282; 99283

== ENCOUNTER → 2024-05-27 15:56 | Outpatient (BNV) | payer OTHER, SELFPAY | PROVIDERS: PCP Internal Medicine; Visit Provider Radiology Diagnostic Radiology | DX: R05.9 Cough, unspecified (principal) | CPT/HCPCS: 71046 ==

== ENCOUNTER 2024-09-27 13:15 | Outpatient (REF) | payer OTHER, SELFPAY ==
--- NOTE | ~2024-09-27 | XR_ITS ---
CLINICAL HISTORY: low back pain 3 views lumbar spine Comparison: None Findings: There is disc space narrowing at L5-S1. Facet hypertrophy noted within the lower lumbar spine. No fracture or acute malalignment. IMPRESSION: Degenerative changes within the lower lumbar spine no fracture or malalignment. This document has been electronically signed by: Sunil Escobedo MD on 09/29/2024 05:57:00
[2024-09-27 15:30] LABS: Erythrocyte Sedimentation Rate 13 MM/HR (0-20)
--- OUTSIDE RECORDS SUMMARY | 2024-09-27 15:42 | XMS_ITS | Clinical Summary ---
Author Organization [address] [facility] Address [address] [place] [address] Phone Care Team Providers Care Access Specialist Name Role Phone Carmela Lake MD Primary Care Provider [phone] Allergies Active Allergy Reactions Criticality Noted Date Comments Metformin 10/15/2021 Medications omeprazole (PriLOSEC) [address] capsule TAKE 1 CAPSULE BY MOUTH EVERY DAY 90 capsule 2 4 Active acetaminophen (TYLENOL) 500 mg tablet Take 1 tablet (500 mg total) by mouth every 6 (six) hours if needed for mild pain. for pain 30 tablet 1 5 Active camphor-methyl salicyl-menthoL (Salonpas) 3.1 %-10 %-6 % (large) adhesive patch,medicated Indications:Chr onic back pain, unspecified back location, unspecified back pain laterality Apply 1 patch topically 1 (one) time each day if needed (pain). Remove at bedtime. 30 patch 5 5 Active citalopram (CeleXA) 10 mg tabletIndicatio ns:Anxiety and depression TAKE 1 TABLET BY MOUTH AT BEDTIME FOR THE FIRST 7 DAYS, THEN INCREASE TO 2 TABLETS AT BEDTIME 180 tablet 1 5 Active tirzepatide, weight loss, (Zepbound) 2.5 mg/0.5 mL solutionIndicat ions:BMI 40.0-44.9, adult (CMS/HCC V24, CMS/HCC V28) Inject 2.5 mg under the skin every 7 (seven) days. 2 mL 1 5 Active ibuprofen (ADVIL,MOTRIN) 800 mg tabletIndicatio ns:Chronic midline low back pain without sciatica Take 1 tablet (800 mg total) by mouth 3 (three) times a day if needed for moderate pain. Take with food. 90 tablet 3 5 09/01/19 26 Active gabapentin (NEURONTIN) 100 mg capsuleIndicati ons:Chronic midline low back pain without sciatica Take 1 capsule (100 mg total) by mouth at bedtime as needed (back pain). 30 each 5 Active benzoyl peroxide (BENZAC AC) 10 % external washIndications :Hidradenitis suppurativa Apply topically 2 (two) times a day. 226 g 5 09/01/19 26 Active cholecalciferol (VITAMIN D-3) 50 mcg (2,000 unit) tabletIndicatio ns:Vitamin D deficiency Take 1 tablet (2,000 Units total) by mouth 1 (one) time each day. 90 tablet 5 09/01/19 26 Active tirzepatide, weight loss, (Zepbound) 2.5 mg/0.5 mL solutionIndicat ions:BMI 40.0-44.9, adult ([facility] V24, [facility] V28) Inject 2.5 mg under the skin every 7 (seven) days. 2 mL 1 5 09/01/19 25 Discontinu ed(Reorder ) Active Problems Problem Noted Date Diagnosed Date Class 3 severe obesity with body mass index (BMI) of 40.0 to 44.9 in adult ([facility] V24, [facility] V28) 03/16/2024 Tinea capitis 04/09/2021 Type 2 diabetes mellitus wit h hyperglycemia, without long-term current use of insulin ([facility] V24, [facility] V28) 03/02/2020 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 Vitamin D deficiency 07/31/2016 Depression 07/16/2016 GERD (gastroesophageal reflux disease) 6 Insomnia 05/11/2015 Encounters Date Type Department Care Team Description 09/08/2024 1:00 PM EDT Telemedicine Endocrinology [address] [phone] Mamie Eaton PA Type 2 diabetes mellitus with hyperglycemia, without long-term current use of insulin ([facility] V24, [facility] V28) (Primary Dx); Class 3 severe obesity with serious comorbidity and body mass index (BMI) of 40.0 to 44.9 in adult, unspecified obesity type ([facility] V24, [facility] V28) 08/31/2024 2:00 PM EDT Office Visit Internal Medicine [address] [phone] Cinthya Cross NP Chronic midline low back pain without sciatica (Primary Dx); BMI 40.0-44.9, adult ([facility] V24, [facility] V28); Breast cyst, left; Hidradenitis suppurativa; Vitamin D deficiency; Anxiety and depression 07/21/2024 Telephone Internal Medicine [address] [phone] Carmela Lake MD Prior Auth 07/05/2024 9:45 AM EDT Office Visit Internal Medicine [address] [phone] Cinthya Cross NP Chronic back pain, unspecified back location, unspecified back pain laterality (Primary Dx); BMI 40.0-44.9, adult ([facility] V24, [facility] V28); Depression, unspecified depression type; Gastroesophageal reflux disease, unspecified whether esophagitis present; Vitamin D deficiency 07/01/2024 Telephone Internal Medicine [address] [phone] Carmela Lake MD Generalized Body Aches from Last 3 Months Immunizations Name Administration [...] obesity with BMI of 4 5.0-49.9, adult ([facility] V24, [facility] V28) 05/28/2018 DX:Morbid obesity wit h BMI of 45.0-49.9, adult ([facility]) Vitamin D deficiency 07/31/2016 DX:Vitamin D deficiency Prediabetes 08/26/2018 DX:Prediabetes Social History Tobacco Use Types Packs/Day Years Used Date Smoking Tobacco: Some Days Smokeless Tobacco: Never Alcohol Use Standard Drinks/Week Comments Yes 0 (1 standard drink = 0.6 oz pur e alcohol) Comments Unknown Sex and Gender Information Value Date Recorded Sex Assigned at Female 09/08/2024 12:43 PM EDT Legal Sex Female 3:59 AM EST Gender Identity Female 09/08/2024 12:43 PM EDT Sexual Orientation Straight 09/08/2024 12 :43 PM EDT Obstetrics History Last Filed Vital Signs Vital Sign Reading Time Taken Comments Blood Pressure 120/78 08/31/2024 1:29 PM EDT Pulse 97 08/31/2024 1:29 PM EDT Temperature 36.4 ??C (97.5 ??F) 08/31/2024 1:29 PM ED T Respiratory Rate - - Oxygen Saturation 98% 08/31/2024 1:29 PM EDT Inhaled Oxygen Concentration - - Weight 108 kg (238 lb) 08/31/2024 1:29 PM EDT Height 160 cm (5' 3 ) 08/31/2024 1:29 PM EDT Body Mass Index 42.16 08/31/2024 1:29 PM EDT Plan of Treatment Upcoming Encounters Date Type Department Care Team (Late st Contact Info) Description 11/04/2024 2:00 PM EDT Office Visit Internal Medicine - [place] [facility] [address] [place] [phone] Cinthya Cross NP [address] [facility] [address] [place] [address] 03/24/2025 3:40 PM EST Office Visit Endocrinology - [place] [id number] [place] [phone] Mamie Eaton PA [address] [place] [address] Health Maintenance Due Date Last Done Comments Diabetes: Annual Foot Exam 1995 Diabetes: Annual Retina Eye Exam 1995 Hepatitis B Vaccines (1 of 3 - 19+ 3-dose series) 2004 Pneumococcal Vaccine: Pediatrics (0 to 5 Years) and At-Risk Patients (6 to 64 Years) (1 of 2 - PCV) 2004 HPV Vaccines (3 - Risk 3-dose series) 10/22/2012 06/22/2012, 11/04/2010 COVID-19 Vaccine (3 - Moderna risk series) 10/09/2020 09/11/2020, 08/14/2020 Cervical Cancer Screening: Pap Smear 01/11/2022 01/11/2019 Depression Screening 03/29/2022 HIV Screening 03/29/2022 Hepatitis C Screening 03/29/2022 Social Influencers of Health Screening 03/29/2022 Influenza Vaccine (Season Ended) 2024 01/27/2023, 01/04/2022, 02/28/2021, Additional history exists Diabetes: Annual Urine Albumin-Creatinine Ratio (uACR) 01/11/2025 01/12/2024 Diabetes: Blood Sugar Control Test (HGBA1C) 03/18/2025 09/15/2024, 06/14/2024, 01/12/2024, Additional history exists Diabetes: Annual GFR (Glomerular Filtration Rate) 09/15/2025 09/15/2024, 06/14/2024, 01/12/2024, Additional history exists Cholesterol Screening (Lipid Panel) 09/15/2029 09/15/2024, 06/14/2024, 01/27/2023 DTaP,Tdap,and Td Vaccines (3 - Td [...] patient's age to complete this topic Meningococcal B Vaccine Aged Out No l onger eligible based on patient's age to complete this topic RSV Immunization Patients Under 20 months Aged Out No longer eligible based on patient's age to complete this topic Varicella Vaccines Aged Out No longer eligible based on patient's age to complete this topic Procedures Procedure Name Priority Date/Time Associated Diagnosis Comments BASIC METABOLIC PANEL Routine 09/15/2024 1:07 PM EDT Type 2 diabetes mellitus with hyperglycemia, without long-term current use of insulin ([facility] V24, [facility] V28) LIPID PANEL WITH REFLEX TO DIRECT LDL Routine 09/15/2024 1:07 PM EDT Type 2 diabetes mellitus with hyperglycemia, without long-term current use of insulin ([facility] V24, [facility] V28) Class 3 severe obesity with serious comorbidity and body mass index (BMI) of 40.0 to 44.9 in adult, unspecified obesity type ([facility] V24, [facility] V28) HEMOGLOBIN A1C Routine 09/15/2024 1:07 PM EDT Type 2 diabetes mellitus with hyperglycemia, without long-term current use of insulin ([facility] V24, [facility] V28) Class 3 severe obesity with serious comorbidity and body mass index (BMI) of 40.0 to 44.9 in adult, unspecified obesity type ([facility] V24, [facility] V28) HM URINE ALBUMIN CREATININE RATIO Routine 01/12/2024 HM PAP SMEAR Routine 01/11/2019 from Last 3 Months or Most Recently Relevant to Health Maintenance Results * (ABNORMAL) Lipid panel with reflex to direct LDL (09/15/2024 1:07 PM EDT) Cholesterol 207(H) 0 - 200 mg/dL LAB CHEMISTRY METHOD 09/15/2024 4:04 PM EDT [facility] Triglycerides 121 0 - 150 mg/dL LAB CHEMISTRY METHOD 09/15/2024 4:04 PM EDT [facility] HDL 54 >=40 mg/dL LAB CHEMISTRY METHOD 09/15/2024 4:04 PM EDT [facility] LDL Calculated 129(H) 0 - 100 mg/dL LAB CHEMISTRY METHOD 09/15/2024 4:04 PM EDT [facility] VLDL Cholesterol Pelon 24.2 mg/dL LAB CHEMISTRY METHOD 09/15/2024 4:04 PM EDT [facility] Non HDL Chol. (LDL+VLDL) 153(H) <145 mg/dL LAB CHEMISTRY METHOD 09/15/2024 4:04 PM EDT [facility] Chol/HDL Ratio 3.8 0.0 - 4.4 LAB CHEMISTRY METHOD 09/15/2024 4:04 PM EDT [facility] Blood Venous blood specimen / Unknown Venipuncture / Unknown 09/15/2024 1:07 PM EDT 09/15/2024 1:07 PM EDT us Mamie DICKERSON LAB BLOOD ORDERABLES Final Resul t Performing Organization Address City/[facility]/ZIP Co de Phone Number [facility] [address] [place] [address], [place] [phone] * Hemoglobin A1c (09/15/2024 1:07 PM EDT) Hemoglobin A1C 5.2 <6.5 % LAB CHEMISTRY METHOD 09/15/2024 3:22 PM EDT [facility] Mean Bld Glu Estim. 103 mg/dL LAB CHEMISTRY METHOD 09/15/2024 3:22 PM EDT [facility] Blood Venous blood specimen / Unknown Venipuncture / Unknown 09/15/2024 1:07 PM EDT 09/15/2024 1:07 PM EDT us Mamie DICKERSON LAB BLOOD ORDERABLES Final Resul t [facility] [address] [place] [address], [place] [phone] * (ABNORMAL) Basic metabolic panel (09/15/2024 1:07 PM EDT) Sodium 137 133 - 145 mmol/L LAB CHEMISTRY METHOD 09/15/2024 4:06 PM [facility] Potassium 4.2 3.5 - 5.5 mmol/L LAB CHEMISTRY METHOD 09/15/2024 4:06 PM [facility] Chloride 105 96 - 110 mmol/L LAB CHEMISTRY METHOD 09/15/2024 4:06 PM [facility] CO2 23 21 - 32 mmol/L LAB CHEMISTRY METHOD 09/15/2024 4:06 PM [facility] Anion Gap 9 3 - 11 LAB CHEMISTRY METHOD 09/15/2024 4:06 PM [facility] Glucose 88 70 - 100 mg/dL LAB CHEMISTRY METHOD 09/15/2024 4:06 PM [facility] BUN 12 5 - 25 mg/dL LAB CHEMISTRY METHOD 09/15/2024 4:06 PM [facility] Creatinine 0.67 0.50 - 1.10 mg/dL LAB CHEMISTRY METHOD 09/15/2024 4:06 PM [facility] eGFR 114 >=60 mL/min/1. 73m2 LAB CHEMISTRY METHOD 09/15/2024 4:06 PM [facility] Comment:Calculation based on the Chronic Kidney Disease Epidemiology Collaboration (CKD-EPI) equation refit without adjustment for race. BUN/Creatinine Ratio 17.9 LAB CHEMISTRY METHOD 09/15/2024 4:06 PM [facility] Calcium 8.4(L) 8.5 - 10.5 mg/dL LAB CHEMISTRY METHOD 09/15/2024 4:06 PM [facility] Blood Venous blood specimen / Unknown Venipuncture / Unknown 09/15/2024 1:07 PM EDT 09/15/2024 1:07 PM EDT Mamie DICKERSON LAB BLOOD ORDERABLES Final Resul t [facility] [address] [place] [address], [place] [phone] * Urine Albumin Creatinine Ratio (01/12/2024) Urine Albumin Creatinine Ratio abstracted Historical Provider HEALTH MAINTENANCE Final Result * Hm Pap Smear (01/11/2019) Pap smear abstracted, no interpretation Historical Provider HEALTH MAINTENANCE Final Result from Last 3 Months or Most Recently Relevant to Health Maintenance Insurance [facility] [employer] [facility] Advance Directives Documents on File Type 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
[2024-09-27 15:43] LABS: Rheumatoid Factor < 13.0 IU/mL (<15.0)
[2024-09-28 05:03] LABS: Lyme Abs Screen <0.90 index
[2024-09-30 07:38] LABS: Anti Nuclear Antibody Screen NEGATIVE (NEGATIVE)
[2024-10-01 12:59] LABS: HLA B27 Negative (Negative)
== END 2024-09-27 13:16 | disposition home or self-care (01) ==
LOC: HO.XRAY 13:15
PROVIDERS: PCP Internal Medicine; Visit Provider Psychiatry & Neurology Neurology
DX: M54.50 Low back pain, unspecified (principal)
CPT/HCPCS: 36415; 72100; 82550; 85652; 86038; 86431; 86617; 86618; 86812

== ENCOUNTER → 2024-09-27 13:50 | Outpatient (BNV) | payer OTHER, SELFPAY | PROVIDERS: PCP Internal Medicine; Visit Provider Radiology Vascular & Interventional Radiology | DX: M51.360 Other intervertebral disc degeneration, lumbar region with discogenic back pain only (principal) | CPT/HCPCS: 72100 ==